=== PATIENT | female | born 1975 | race Caucasian/White ===

== ENCOUNTER 2020-03-25 09:22 | Outpatient (REF) | payer OTHER, SELFPAY ==
[2020-03-25 10:37] LABS: MANUAL DIFF FLAG NO
[2020-03-25 10:49] LABS: Basophils Absolute Auto 0.1 X10*3/uL (0.0-0.2); Basophils Percent Auto 0.9 % (0-2); Eosinophils Percent Auto 0.6 % (0-4); Hematocrit 36.2 % (37-47); Hemoglobin 12.4 g/dl (12.0-16.0); Imm Gran Abs Auto 0.01 X10*3/uL (0.00-0.03); Imm Gran Pct Auto 0.2 % (0.0-0.4); Lymphocytes Absolute Auto 1.4 X10*3/uL (1.2-4.9); Lymphocytes Percent Auto 25.6 % (20-40); Mean Corpuscular HGB Conc 34.3 g/dl (31.0-35.0); Mean Corpuscular Hemoglobin 31.5 pg (27.0-33.0); Mean Corpuscular Volume 91.9 fL (80-98); Mean Platelet Volume 9.7 fL (9.4-12.3); Monocytes Absolute Auto 0.3 X10*3/uL (0.1-1.2); Monocytes Percent Auto 5.9 % (2-11); Neutrophils Absolute Auto 3.6 X10*3/uL (2.0-8.3); Neutrophils Percent Auto 66.8 % (45-73); Platelet Count 294 X10*3/uL (160-400); Red Blood Count 3.94 X10*6/uL (4.20-5.50); Red Cell Distribution Width 11.7 % (11.0-16.0); White Blood Count 5.4 X10*3/uL (4.8-10.8)
[2020-03-25 10:51] LABS: Estimated Average Glucose 91 mg/dL; Hemoglobin A1c % 4.8 %
[2020-03-25 11:05] LABS: Glucose Urine UA NEG (NEG); Leukocyte Esterase Urine TRACE (NEG); Nitrite Urine POS (NEG); Specific Gravity - Urine 1.015 (1.005-1.025); Urine Blood NEG (NEG); Urine Ketones NEG (NEG); Urine Protein NEG (NEG-TRACE)
[2020-03-25 11:08] LABS: Appearance Urine CLOUDY; Color Urine YELLOW
[2020-03-25 11:13] LABS: Bacteria Urine 2+ /LPF; Mucus Urine 3+ /LPF; RBC Urine 0 /HPF (0); Squamous Epithelial Cell Urine 3+ /LPF
[2020-03-25 11:26] LABS: Alanine Aminotransferase 24 U/L (0-31); Albumin Level 4.2 g/dL (3.5-5.0); Alkaline Phosphatase 94 U/L (39-117); Anion Gap 11 (12-20); Aspartate Amino Transferase 17 U/L (5-31); Bilirubin Total 1.5 mg/dL (0.0-1.0); Blood Urea Nitrogen 12 mg/dL (9-16); C Reactive Protein 0.07 mg/dL (< or = 0.50); Calcium 8.9 mg/dL (8.4-10.2); Carbon Dioxide 29 mmol/L (22-29); Chloride 103 mmol/L (96-108); Cholesterol 137 mg/dL; Estimated Glomerular Filt Rate > 60; Glucose Random 94 mg/dL (60-115); HDL Cholesterol 61 mg/dL; Iron 87 mcg/dL (30-160); LDL Cholesterol Calculated 64 mg/dl; Percent Iron Saturation 27 % (15-50); Potassium 4.6 mmol/l (3.3-5.1); Sodium 138 mmol/L (135-145); Total Iron Binding Capacity 320 mcg/dL (228-428); Triglycerides 64 mg/dL; Unsaturated Iron Binding 233 ug/dL
[2020-03-25 11:34] LABS: Ferritin 65 ng/mL (10-250); TSH reflex Free T4 0.75 mIU/mL (0.32-4.0); Vitamin D 25-OH Total 27.9 ng/mL (>30)
[2020-03-25 11:49] LABS: Folate 8.7 ng/mL (> or = 4.0); Vitamin B12 165 pg/mL (200-900)
[2020-03-27 12:36] LABS: Insulin Level Total 2.9 uIU/mL; PTHI 69 pg/mL (14-64)
[2020-03-28 16:16] LABS: Zinc 66 mcg/dL (60-130)
[2020-03-29 12:56] LABS: Vitamin B1 8 nmol/L (8-30)
[2020-03-31 15:47] LABS: Vitamin A 34 mcg/dL (38-98)
== END 2020-03-25 09:23 | disposition home or self-care (01) ==
LOC: HO.LAB 09:22
PROVIDERS: Physician Assistant; PCP Internal Medicine; Visit Provider Internal Medicine
DX: Z98.84 Bariatric surgery status (principal); Z00.00 Encounter for general adult medical examination without abnormal findings; F41.0 Panic disorder [episodic paroxysmal anxiety]; F51.01 Primary insomnia; F34.1 Dysthymic disorder; G44.209 Tension-type headache, unspecified, not intractable
CPT/HCPCS: 36415; 80053; 80061; 81001; 81003; 82306; 82607; 82728; 82746; 83036; 83525; 83540; 83970; 84425; 84443; 84590; 84630; 85025; 86140

== ENCOUNTER → 2020-05-20 08:44 | Outpatient (BNVA) | payer OTHER, SELFPAY | PROVIDERS: PCP Internal Medicine; Visit Provider Dietitian, Registered | DX: Z76.89 Persons encountering health services in other specified circumstances (principal) ==

== ENCOUNTER 2020-06-23 12:24 | Outpatient (REF) | payer OTHER, SELFPAY ==
[2020-06-23 13:13] LABS: Glucose Urine UA NEG (NEG); Leukocyte Esterase Urine NEG (NEG); Nitrite Urine NEG (NEG); PH 6.5 (5.0-8.0); Urine Blood NEG (NEG); Urine Ketones NEG (NEG); Urine Protein NEG (NEG-TRACE)
[2020-06-23 13:15] LABS: Appearance Urine CLEAR; Color Urine YELLOW
== END 2020-06-23 12:25 | disposition home or self-care (01) ==
LOC: HO.LAB 12:24
PROVIDERS: PCP Internal Medicine; Visit Provider Internal Medicine
DX: N30.00 Acute cystitis without hematuria (principal)
CPT/HCPCS: 81003; 87086; 87147

== ENCOUNTER → 2020-06-30 08:11 | Outpatient (BNVA) | payer OTHER, SELFPAY | PROVIDERS: PCP Internal Medicine; Visit Provider Physician Assistant | DX: Z76.89 Persons encountering health services in other specified circumstances (principal) ==

== ENCOUNTER 2021-04-07 10:32 | Outpatient (REF) | payer OTHER, SELFPAY ==
[2021-04-07 10:34] LABS: MANUAL DIFF FLAG NO
[2021-04-07 11:22] LABS: Basophils Percent Auto 0.7 % (0-2); Eosinophils Absolute Auto 0.1 X10*3/uL (0.0-0.4); Eosinophils Percent Auto 1.2 % (0-4); Hematocrit 37.3 % (37-47); Hemoglobin 12.5 g/dl (12.0-16.0); Imm Gran Abs Auto 0.01 X10*3/uL (0.00-0.03); Imm Gran Pct Auto 0.2 % (0.0-0.4); Lymphocytes Absolute Auto 2.2 X10*3/uL (1.2-4.9); Mean Corpuscular HGB Conc 33.5 g/dl (31.0-35.0); Mean Corpuscular Hemoglobin 31.2 pg (27.0-33.0); Mean Platelet Volume 9.5 fL (9.4-12.3); Monocytes Absolute Auto 0.5 X10*3/uL (0.1-1.2); Monocytes Percent Auto 8.3 % (2-11); Neutrophils Percent Auto 51.6 % (45-73); Platelet Count 294 X10*3/uL (160-400); Red Blood Count 4.01 X10*6/uL (4.20-5.50); White Blood Count 5.9 X10*3/uL (4.8-10.8)
[2021-04-07 11:44] LABS: Alanine Aminotransferase 17 U/L (0-31); Albumin Level 4.2 g/dL (3.5-5.0); Alkaline Phosphatase 73 U/L (39-117); Anion Gap 13 (12-20); Aspartate Amino Transferase 17 U/L (5-31); Bilirubin Total 1.1 mg/dL (0.0-1.0); Blood Urea Nitrogen 14 mg/dL (9-16); Calcium 9.3 mg/dL (8.4-10.2); Carbon Dioxide 26 mmol/L (22-29); Chloride 106 mmol/L (96-108); Cholesterol 136 mg/dL; Estimated Glomerular Filt Rate > 60; Glucose Fasting 97 mg/dL (60-99); HDL Cholesterol 60 mg/dL; LDL Cholesterol Calculated 61 mg/dl; Potassium 4.5 mmol/L (3.3-5.1); Sodium 140 mmol/L (135-145); Triglycerides 77 mg/dL
[2021-04-07 11:48] LABS: Reflex LDLD? No
[2021-04-07 11:54] LABS: Appearance Urine HAZY; Color Urine YELLOW; Glucose Urine UA NEG (NEG); Leukocyte Esterase Urine 1+ (NEG); Nitrite Urine NEG (NEG); Specific Gravity - Urine 1.025 (1.005-1.025); Urine Blood NEG (NEG); Urine Ketones NEG (NEG); Urine Protein NEG (NEG-TRACE)
[2021-04-07 12:32] LABS: Bacteria Urine 1+ /LPF; Mucus Urine 1+ /LPF; RBC Urine 0-2 /HPF (0); Squamous Epithelial Cell Urine 1+ /LPF
== END 2021-04-07 10:33 | disposition home or self-care (01) ==
LOC: HO.LNP 10:32
PROVIDERS: Visit Provider Internal Medicine
DX: Z00.00 Encounter for general adult medical examination without abnormal findings (principal)
CPT/HCPCS: 80053; 80061; 81001; 81003; 85025

== ENCOUNTER 2022-05-25 10:55 | Outpatient (REF) | payer OTHER, SELFPAY ==
[2022-05-25 11:00] LABS: MANUAL DIFF FLAG NO
[2022-05-25 11:07] LABS: Basophils Percent Auto 0.7 % (0-2); Eosinophils Absolute Auto 0.1 X10*3/uL (0.0-0.4); Eosinophils Percent Auto 1.3 % (0-4); Hematocrit 35.1 % (37.0-47.0); Hemoglobin 11.8 g/dl (12.0-16.0); Imm Gran Abs Auto 0.01 X10*3/uL (0.00-0.03); Imm Gran Pct Auto 0.2 % (0.0-0.4); Lymphocytes Absolute Auto 1.8 X10*3/uL (1.2-4.9); Lymphocytes Percent Auto 32.8 % (20-40); Mean Corpuscular HGB Conc 33.6 g/dl (31.0-35.0); Mean Corpuscular Hemoglobin 30.6 pg (27.0-33.0); Mean Corpuscular Volume 91.2 fL (80.0-98.0); Mean Platelet Volume 9.4 fL (9.4-12.3); Monocytes Absolute Auto 0.4 X10*3/uL (0.1-1.2); Monocytes Percent Auto 7.8 % (2-11); Neutrophils Absolute Auto 3.1 x10*3/uL (2.0-8.3); Neutrophils Percent Auto 57.2 % (45-73); Platelet Count 304 X10*3/uL (160-400); Red Blood Count 3.85 X10*6/uL (4.20-5.50); Red Cell Distribution Width 11.9 % (11.0-16.0); White Blood Count 5.4 X10*3/uL (4.8-10.8)
[2022-05-25 11:09] LABS: Appearance Urine Cloudy; Color Urine Yellow; Glucose Urine UA Negative (Negative); Leukocyte Esterase Urine Small (1+) (Negative); Nitrite Urine Negative (Negative); PH 5.5 (5.0-9.0); UMIC TRIGGER UA YES; Urine Blood Negative (Negative); Urine Ketones Trace mg/dL (Negative); Urine Protein Trace mg/dL (Neg-Trace)
[2022-05-25 11:22] LABS: Bacteria Urine 4+ (None Seen); Hyaline Casts Urine 0-2 /LPF (0-2); WBC Urine 0-5 /HPF (0-5)
[2022-05-25 12:25] LABS: Alanine Aminotransferase 15 U/L (0-31); Alkaline Phosphatase 71 U/L (39-117); Anion Gap 10 (12-20); Aspartate Amino Transferase 16 U/L (5-31); Bilirubin Total 1.4 mg/dL (0.0-1.0); Blood Urea Nitrogen 11 mg/dL (9-16); Calcium 8.9 mg/dL (8.4-10.2); Carbon Dioxide 27 mmol/L (22-29); Chloride 105 mmol/L (96-108); Cholesterol 139 mg/dL; Estimated Glomerular Filt Rate > 60; Glucose Fasting 92 mg/dL (60-99); HDL Cholesterol 67 mg/dL; LDL Cholesterol Calculated 56 mg/dl; Potassium 3.9 mmol/L (3.3-5.1); Sodium 138 mmol/L (135-145); Total Protein 6.6 g/dL (6.5-8.0); Triglycerides 84 mg/dL
== END 2022-05-25 10:56 | disposition home or self-care (01) ==
LOC: HO.LNP 10:55
PROVIDERS: Visit Provider Internal Medicine
DX: Z00.00 Encounter for general adult medical examination without abnormal findings (principal)
CPT/HCPCS: 80053; 80061; 81001; 85025

== ENCOUNTER 2022-05-31 16:04 | Outpatient (REF) | payer OTHER, SELFPAY ==
[2022-05-31 16:12] LABS: Appearance Urine Cloudy; Color Urine Dark Yellow; Glucose Urine UA Negative (Negative); Leukocyte Esterase Urine Small (1+) (Negative); Nitrite Urine Negative (Negative); PH 5.5 (5.0-9.0); Specific Gravity - Urine >= 1.030 (1.005-1.025); UMIC TRIGGER UA YES; Urine Blood Negative (Negative); Urine Ketones 15 mg/dL (Negative); Urine Protein 30 (1+) mg/dL (Neg-Trace)
[2022-05-31 16:32] LABS: Bacteria Urine 4+ (None Seen); Hyaline Casts Urine 0-2 /LPF (0-2); WBC Urine 0-5 /HPF (0-5)
== END 2022-05-31 16:05 | disposition home or self-care (01) ==
LOC: HO.LNP 16:04
PROVIDERS: Visit Provider Internal Medicine
DX: R31.9 Hematuria, unspecified (principal)
CPT/HCPCS: 81001; 87086

== ENCOUNTER 2022-06-03 11:13 | Outpatient (REF) | payer OTHER, SELFPAY | END 2022-06-03 11:14 | disposition home or self-care (01) | LOC: HO.LNP 11:13 | PROVIDERS: Visit Provider Internal Medicine | DX: R31.9 Hematuria, unspecified (principal) | CPT/HCPCS: 87086; 87088; 87186 ==

== ENCOUNTER 2022-06-07 08:02 | Outpatient (REF) | payer OTHER, SELFPAY ==
[2022-06-07 08:29] LABS: MANUAL DIFF FLAG NO
[2022-06-07 09:09] LABS: Basophils Percent Auto 0.8 % (0-2); Eosinophils Absolute Auto 0.1 X10*3/uL (0.0-0.4); Eosinophils Percent Auto 1.2 % (0-4); Hematocrit 35.3 % (37.0-47.0); Hemoglobin 11.7 g/dl (12.0-16.0); Imm Gran Abs Auto 0.01 X10*3/uL (0.00-0.03); Imm Gran Pct Auto 0.2 % (0.0-0.4); Lymphocytes Absolute Auto 1.6 X10*3/uL (1.2-4.9); Lymphocytes Percent Auto 31.2 % (20-40); Mean Corpuscular HGB Conc 33.1 g/dl (31.0-35.0); Mean Corpuscular Hemoglobin 30.4 pg (27.0-33.0); Mean Corpuscular Volume 91.7 fL (80.0-98.0); Mean Platelet Volume 9.2 fL (9.4-12.3); Monocytes Absolute Auto 0.4 X10*3/uL (0.1-1.2); Monocytes Percent Auto 7.4 % (2-11); Neutrophils Percent Auto 59.2 % (45-73); Platelet Count 296 X10*3/uL (160-400); Red Blood Count 3.85 X10*6/uL (4.20-5.50); Red Cell Distribution Width 11.9 % (11.0-16.0); White Blood Count 5.1 X10*3/uL (4.8-10.8)
[2022-06-07 09:14] LABS: Estimated Average Glucose 97 mg/dL
[2022-06-07 10:08] LABS: Alanine Aminotransferase 17 U/L (0-31); Albumin Level 4.2 g/dL (3.5-5.0); Alkaline Phosphatase 85 U/L (39-117); Anion Gap 13 (12-20); Aspartate Amino Transferase 17 U/L (5-31); Bilirubin Total 1.2 mg/dL (0.0-1.0); Blood Urea Nitrogen 14 mg/dL (9-16); C Reactive Protein 0.11 mg/dL (< or = 0.50); Calcium 9.3 mg/dL (8.4-10.2); Carbon Dioxide 28 mmol/L (22-29); Chloride 103 mmol/L (96-108); Cholesterol 157 mg/dL; Estimated Glomerular Filt Rate > 60; Ferritin 28 ng/mL (10-250); Glucose Random 93 mg/dL (60-115); HDL Cholesterol 72 mg/dL; Insulin 4 uU/mL (2-29); Iron 90 mcg/dL (30-160); LDL Cholesterol Calculated 70 mg/dl; Percent Iron Saturation 28 % (15-50); Potassium 4.5 mmol/L (3.3-5.1); Sodium 139 mmol/L (135-145); Total Iron Binding Capacity 321 mcg/dL (228-428); Total Protein 6.9 g/dL (6.5-8.0); Triglycerides 76 mg/dL; Unsaturated Iron Binding 231 ug/dL; Vitamin D 25-OH Total 24.8 ng/mL (>30)
[2022-06-07 10:21] LABS: Folate 8.2 ng/mL (> or = 4.0); Vitamin B12 250 pg/mL (200-900)
[2022-06-10 17:47] LABS: Calcium (PTHI) 9.1 mg/dL (8.6-10.2); PTHI 75 pg/mL (16-77)
[2022-06-11 22:33] LABS: Vitamin A 38 mcg/dL (38-98)
[2022-06-11 23:38] LABS: Zinc 62 mcg/dL (60-130)
[2022-06-12 14:48] LABS: Vitamin B1 9 nmol/L (8-30)
== END 2022-06-07 08:03 | disposition home or self-care (01) ==
LOC: HO.LAB 08:02
PROVIDERS: PCP Internal Medicine; Visit Provider Physician Assistant Surgical
DX: Z98.84 Bariatric surgery status (principal)
CPT/HCPCS: 36415; 80053; 80061; 82306; 82607; 82728; 82746; 83036; 83525; 83540; 83970; 84425; 84443; 84590; 84630; 85025; 86140

== ENCOUNTER 2022-06-11 12:14 | Outpatient (REF) | payer OTHER, SELFPAY ==
[2022-06-11 12:34] LABS: Appearance Urine Cloudy; Color Urine Yellow; Glucose Urine UA Negative (Negative); Leukocyte Esterase Urine Negative (Negative); Nitrite Urine Negative (Negative); PH 5.5 (5.0-9.0); Specific Gravity - Urine 1.025 (1.005-1.025); Urine Blood Negative (Negative); Urine Ketones Negative (Negative); Urine Protein Negative (Neg-Trace)
[2022-06-11 12:48] LABS: Bacteria Urine None Seen (None Seen); Hyaline Casts Urine 0-2 /LPF (0-2); RBC Urine 0-2 /HPF (0-2); Squamous Epithelial Cell Urine 0-2 /HPF (0-2); WBC Urine 0-5 /HPF (0-5)
[2022-06-11 12:50] LABS: Calcium Oxalate Crystals Urine Present
== END 2022-06-11 12:15 | disposition home or self-care (01) ==
LOC: HO.LNP 12:14
PROVIDERS: Visit Provider Internal Medicine
DX: R31.9 Hematuria, unspecified (principal); N39.0 Urinary tract infection, site not specified
CPT/HCPCS: 81001; 87086

== ENCOUNTER → 2022-06-15 14:27 | Outpatient (BNVA) | payer OTHER, SELFPAY | PROVIDERS: PCP Internal Medicine; Visit Provider Physician Assistant Surgical | DX: L98.7 Excessive and redundant skin and subcutaneous tissue (principal) ==

== ENCOUNTER → 2022-07-20 09:02 | Outpatient (BNVA) | payer OTHER, SELFPAY | PROVIDERS: PCP Internal Medicine; Referring Provider Internal Medicine; Visit Provider Physician Assistant Surgical | DX: E66.9 Obesity, unspecified (principal) ==

== ENCOUNTER → 2022-08-18 08:56 | Outpatient (BNVA) | payer OTHER, SELFPAY | PROVIDERS: PCP Internal Medicine; Visit Provider Physician Assistant Surgical | DX: Z13.89 Encounter for screening for other disorder (principal) ==

== ENCOUNTER 2022-08-20 11:51 | Outpatient (REF) | payer OTHER, SELFPAY ==
[2022-08-20 12:37] LABS: Appearance Urine Turbid; Color Urine Dark Yellow; Glucose Urine UA Negative (Negative); Leukocyte Esterase Urine Large (3+) (Negative); Nitrite Urine Positive (Negative); UMIC TRIGGER UACC YES; Urine Blood Small (1+) (Negative); Urine Ketones 15 mg/dL (Negative); Urine Protein 30 (1+) mg/dL (Neg-Trace)
[2022-08-20 13:07] LABS: Bacteria Urine 4+ (None Seen); Hyaline Casts Urine 0-2 /LPF (0-2); RBC Urine 0-2 /HPF (0-2); UACC Culture Trigger YES; WBC Urine >50 /HPF (0-5)
== END 2022-08-20 11:52 | disposition home or self-care (01) ==
LOC: HO.LNP 11:51
PROVIDERS: Visit Provider Internal Medicine
DX: N39.0 Urinary tract infection, site not specified (principal)
CPT/HCPCS: 81001; 81003; 87086

== ENCOUNTER 2022-08-24 11:01 | Outpatient (REF) | payer OTHER, SELFPAY ==
[2022-08-24 11:15] LABS: Appearance Urine Clear; Color Urine Yellow; Glucose Urine UA Negative (Negative); Leukocyte Esterase Urine Negative (Negative); Nitrite Urine Negative (Negative); Urine Blood Negative (Negative); Urine Ketones Negative (Negative); Urine Protein Negative (Neg-Trace)
[2022-08-24 11:20] LABS: Bacteria Urine None Seen (None Seen); Hyaline Casts Urine 0-2 /LPF (0-2); RBC Urine 0-2 /HPF (0-2); WBC Urine 0-5 /HPF (0-5)
== END 2022-08-24 11:02 | disposition home or self-care (01) ==
LOC: HO.LNP 11:01
PROVIDERS: Visit Provider Internal Medicine
DX: R33.9 Retention of urine, unspecified (principal)
CPT/HCPCS: 81001

== ENCOUNTER → 2022-09-09 08:01 | Outpatient (BNVA) | payer OTHER, SELFPAY | PROVIDERS: PCP Internal Medicine; Referring Provider Internal Medicine; Visit Provider Surgery | DX: Z13.89 Encounter for screening for other disorder (principal) ==

== ENCOUNTER → 2022-09-13 08:14 | Outpatient (BNVA) | payer OTHER, SELFPAY | PROVIDERS: PCP Internal Medicine; Visit Provider Surgery | DX: Z13.89 Encounter for screening for other disorder (principal) ==

== ENCOUNTER 2022-09-22 07:50 | Outpatient (REF) | payer OTHER, SELFPAY ==
[2022-09-22 08:06] LABS: MANUAL DIFF FLAG NO
[2022-09-22 08:32] LABS: Basophils Absolute Auto 0.1 X10*3/uL (0.0-0.2); Basophils Percent Auto 0.8 % (0-2); Eosinophils Absolute Auto 0.1 X10*3/uL (0.0-0.4); Hematocrit 36.7 % (37.0-47.0); Hemoglobin 12.4 g/dl (12.0-16.0); Imm Gran Abs Auto 0.02 X10*3/uL (0.00-0.03); Imm Gran Pct Auto 0.3 % (0.0-0.4); Lymphocytes Absolute Auto 1.7 X10*3/uL (1.2-4.9); Lymphocytes Percent Auto 28.4 % (20-40); Mean Corpuscular HGB Conc 33.8 g/dl (31.0-35.0); Mean Corpuscular Hemoglobin 30.6 pg (27.0-33.0); Mean Corpuscular Volume 90.6 fL (80.0-98.0); Mean Platelet Volume 8.9 fL (9.4-12.3); Monocytes Absolute Auto 0.4 X10*3/uL (0.1-1.2); Monocytes Percent Auto 6.8 % (2-11); Neutrophils Absolute Auto 3.7 x10*3/uL (2.0-8.3); Neutrophils Percent Auto 62.7 % (45-73); Platelet Count 295 X10*3/uL (160-400); Red Blood Count 4.05 X10*6/uL (4.20-5.50); Red Cell Distribution Width 12.4 % (11.0-16.0); White Blood Count 5.9 X10*3/uL (4.8-10.8)
[2022-09-22 08:38] LABS: INTERNATIONAL NORM RATIO 0.9 (0.9-1.1); Prothrombin Time 9.9 SEC (10.0-13.1)
[2022-09-22 08:41] LABS: Partial Thromboplastin Time 29.8 SEC (26.0-36.4)
[2022-09-22 09:19] LABS: Alanine Aminotransferase 16 U/L (0-31); Alkaline Phosphatase 79 U/L (39-117); Anion Gap 14 (12-20); Aspartate Amino Transferase 20 U/L (5-31); Bilirubin Total 0.9 mg/dL (0.0-1.0); Blood Urea Nitrogen 12 mg/dL (9-16); Calcium 9.1 mg/dL (8.4-10.2); Carbon Dioxide 24 mmol/L (22-29); Chloride 104 mmol/L (96-108); Estimated Glomerular Filt Rate > 60; Glucose Random 97 mg/dL (60-115); Potassium 4.3 mmol/L (3.3-5.1); Sodium 138 mmol/L (135-145); Total Protein 6.8 g/dL (6.5-8.0)
== END 2022-09-22 07:51 | disposition home or self-care (01) ==
LOC: HO.LAB 07:50
PROVIDERS: PCP Internal Medicine; Visit Provider Surgery
DX: K90.9 Intestinal malabsorption, unspecified (principal); Z98.84 Bariatric surgery status
CPT/HCPCS: 36415; 80053; 85025; 85610; 85730

== ENCOUNTER 2022-09-30 08:37 | Day surgery (SDC) | payer OTHER, MEDICAID, SELFPAY ==
[2022-09-22 11:05] VITALS: BMI 24.3
--- NOTE | 2022-09-24 23:01 | P.HPSUR_ITS ---
Pre-Procedural Eval Section A Date of Service: 09/24/22 The patient is an INPATIENT: No The History & Physical has been completed within 30 days and I have reviewed it.: Yes Section B Chief Complaint: Excessive and redundant skin and subcutaneous tiss Relevant Family History (Specify if Yes): No Relevant Social History: None Present Medications: None Medical History: No relevant PMH History of Previous Operations: Relevant previous surgery/procedure and date(s) (Laparoscopic sleeve gastrectomy) Allergies: Allergies Allergy/AdvReac Type Severity Reaction Status Date / Time Seasonal Allergies Allergy Mild per skin Verified 09/22/22 10:58 testing for allergies-mild symptoms reported Review of Systems Sugical H&P ROS: Negative: Constitution, Cardiovascular, Respiratory, Neurol ogical, Psychiatric, Hem-Onc, Allergic/Immunologic, Gastrointestinal, Genitourinary, Musculoskeletal, Integumentary, Endocrine and Eyes/Ears/Nose/Throat Exam Surgical H&P Exam: Normal: HEENT, Normal: Heart, Normal: Lungs, Normal: Extremities, Normal: Abdomen, Normal: Skin and Normal: Neurological Plan Diagnosis/Plan: Unchanged I have reviewed the history and physical and performed a pertinent physical examination on my patient. No changes have occurred unless specified. Time Spent With Patient Time: Total time managing care of this patient today ____ minutes.
--- NOTE | 2022-09-29 08:11 | P.CONAN_ITS ---
HPI - Anesthesia Eval Consult details Narrative: 47yo F for Panniculectomy s/p gastric bypass 2017 [facility] Active Problems Active Problems: All Active Problems (Updated 09/22/22 @ 11:05 by Norma Becerril RN) S/P gastric bypass (Acute) Excess skin (Acute) Intestinal malabsorption (Acute) Panniculitis (Acute) Past Medical History Medical History History of COVID-19 Seasonal allergies Family History Family History Father Emphysema lung COPD (chronic obstructive pulmonary disease) Mother DM (diabetes mellitus) HTN (hypertension) Glaucoma Brother No problems noted. Brother No problems noted. Brother No problems noted. Son No problems noted. Son No problems noted. Surgical History Surgical History H/O removal of cyst History of esophagogastroduodenoscopy (EGD) History of Denise-en-Y gastric bypass Hx of section Hx of colonoscopy S/P NILA-BSO (total abdominal hysterectomy and bilateral salpingo-oophorectomy) Social History Social History Household Members Other:: 2 adult children-ages 19 & 21 Are you a primary medicare biller to a significant other at home: No Do you presently have visiting nurse or other home services: No Alcohol intake: current Alcohol intake frequency: a few times a week Patient Tobacco Use Status: Never used Tobacco Meds Allergies Allergy/AdvReac Type Severity Reaction Status Date / Time Seasonal Allergies Allergy Mild per skin Verified 09/22/22 10:58 testing for allergies-mild symptoms reported Home Medications Medication Instructions Recorded Confirmed Last Taken Type estradiol 0.025 mg/24 hr 1 patch transdermal 2XW 06/15/22 09/22/22 Unknown History semiweekly transdermal patch (Lyllana) trazodone 50 mg tablet 50 mg PO BEDTIME 06/15/22 09/22/22 Unknown History Exam Exam Date and Time: September 29, 2022 0811 Height,Weight and Vital Signs: Height 5 ft 4 in Weight 64.41 kg Pertinent Lab Results Pertinent Lab Results: Laboratory Tests 09/22/22 08:00 Blood Type A Positive Antibody Screen NEGATIVE Laboratory Tests 09/22/22 09/22/22 08:04 08:04 WBC 5.9 Hgb 12.4 Hct 36.7 L Plt Count 295 Sodium 138 Potassium 4.3 Chloride 104 Carbon Dioxide 24 BUN 12 Creatinine 0.69 Assessment and Plan Assessment Anesthesia Assessment: Chart Reviewed
[2022-09-29 13:47] LABS: COVID-19 Test Negative (Negative); IDNOW Serial# BCCEAD1C
[2022-09-30] VITALS (13 sets, daily range): BP systolic 102–119; BP diastolic 54–80; PULSE 71–103; RESP 12–18; TEMP 36.3–36.9; O2SAT 96–100
--- NOTE | 2022-09-30 10:06 | HO.ANESPROP2 ---
[facility] Active Problems Active Problems: All Active Problems (Updated 09/22/22 @ 11:05 by Norma Becerril RN) S/P gastric bypass (Acute) Excess skin (Acute) Intestinal malabsorption (Acute) Panniculitis (Acute) Past Medical History Medical History History of COVID-19 Seasonal allergies Family History Family History Father Emphysema lung COPD (chronic obstructive pulmonary disease) Mother DM (diabetes mellitus) HTN (hypertension) Glaucoma Brother No problems noted. Brother No problems noted. Brother No problems noted. Son No problems noted. Son No problems noted. Surgical History Surgical History H/O removal of cyst History of esophagogastroduodenoscopy (EGD) History of Denise-en-Y gastric bypass Hx of section Hx of colonoscopy S/P NILA-BSO (total abdominal hysterectomy and bilateral salpingo-oophorectomy) History of Problems with Anesthesia: No Social History Social History Household Members Other:: 2 adult children-ages 19 & 21 Are you a primary restorative care technician to a significant other at home: No Do you presently have visiting nurse or other home services: No Alcohol intake: current Alcohol intake frequency: a few times a week Patient Tobacco Use Status: Never used Tobacco Use of substances other than those prescribed or required for medical reasons: No Are you DNR?: No Advance Directives: No Advance Directives Information Provided: Yes (brochure mailed) Advance Directives on File: No Recently lost weight without trying: No Eating poorly because of decreased appetite: No Nutrition Risks: No Nutritional Risk Patient : No FDLMP: N/A-had hysterectomy Poor oral hygiene: No Meds Allergies Allergy/AdvReac Type Severity Reaction Status Date / Time Seasonal Allergies Allergy Mild per skin Verified 09/22/22 10:58 testing for allergies-mild symptoms reported Active Medications: Current Medications Lactated Ringer's (Lr) 1,000 mls @ 100 mls/hr IVCONT .Q10H SHAHAB Lactated Ringer's (Lr) 1,000 mls @ 80 mls/hr IVCONT .[id number] SHAHAB Home Medications Medication Instructions Recorded Confirmed Last Taken Type estradiol 0.025 mg/24 hr 1 patch transdermal 2XW 06/15/22 09/22/22 Unknown History semiweekly transdermal patch (Lyllana) trazodone 50 mg tablet 50 mg PO BEDTIME 06/15/22 09/22/22 Unknown History Exam Exam Date and Time: September 30, 2022 1006 Height,Weight and Vital Signs: Height 5 ft 4 in Weight 64.41 kg Last Vital Signs Temp 97.6 F 09/30/22 08:56 Pulse 88 09/30/22 08:56 Resp 18 09/30/22 08:56 BP 105/73 09/30/22 08:56 Pulse Ox 97 09/30/22 08:56 O2 Del Method Room Air 09/30/22 08:56 Pertinent Lab Results Pertinent Lab Results: Laboratory Tests 09/22/22 09/29/22 08:00 13:23 COVID-19 (QUINCY) Negative COVID-19 Clin Com See Note Blood Type A Positive Antibody Screen NEGATIVE Airway Mallampati Class: II TM Dist: >3cm Neck ROM: Full Loose/Missing/Broken Teeth: No Heart: RRR Lungs: CTA Assessment and Plan Assessment Anesthesia Assessment: Anesthesia Plan Discussed and Chart Reviewed Final Anesthetic Review History of Problems with Anesthesia: No NPO: Yes ASA Class: I and II Final Preanesthetic Review: Meds/Allgs Chart Reviewed, Consent Obtained/Reviewed and Anes Risks/Benef Reviewed Patient Risk: Low Procedure Risk: Low Anesthetic Plan Anesthetic Plan: GA Disposition: Standard PACU
--- NOTE | 2022-09-30 10:21 | PC.NURSE ---
notified [facility] aware of order does not state possible abdominoplasty, ventral hernia repair with/without mesh. ok'd by Tia Salter.
--- NOTE | 2022-09-30 10:44 | PM.OP ---
Brief Operative Note Date of Service: 09/30/22 Pre-op diagnosis: Excess skin and panniculitis Post-op diagnosis: same (active rash present in today's exam) Procedure: PROCEDURE: Panniculectomy with umbilical transposition and bilateral subcutaneous fat flaps INDICATION: This a 47 year old female who underwent laparoscopic sleeve gastrectomy on 12/20/2017. She had an excellent result achieving a BMI of 23.7 kg/m2 with a total weight loss of 81.4lbs, or 36.44% of her TBWL. As a result, she has developed panniculitis which has not resolved despite continuous use of clotrimazole ointment as well as skin irritation. On exam she has extreme skin laxity due to massive weight loss, with the abdominal pannus completely hanging 4cm below the pubis. Panniculectomy was recommended. We discussed the two options for the panniculectomy of using a combined vertical and horizontal incisions or just a horizontal (bikini) incision. It was my recommendation to do only horizontal incision based on her body habitus and skin laxity. The patient agreed with this. Risks and complications were discussed with the patient including bleeding, infection, umbilical loss, flap necrosis, asymmetry, dehiscence, seroma, VTE. The patient understood the risks and was in agreement to proceed with surgery. PROCEDURE: The incisions were appropriately marked at the preop area with the patient standing and laying down. After induction of general anesthesia a Elias catheter and pneumatic compression devices were placed. The patient was prepped and draped in the usual sterile manner and the incisions were marked again and confirmed. The skin was infiltrated with lidocaine and epinephrine. The #10 blade scalpel was used for the large incisions and the #15 blade scalpel for the umbilicus. Cautery was used to divide the subcutaneous tissues until the fascia was identified. Then I used the Thunderbeat (Olympus) to separate the pannus from the fascia. The inferior incision was made initially and I mobilized the flap for a several centimeters cephalad to the umbilicus. The umbilicus was incised circumferentially and detached from the surrounding tissues all the way to the fascia while its stalk was preserved. With the patient in reflex position I confirmed that the skin flaps were appropriate and would allow for the tissues to come together with reasonable tension. At that point a horizontal incision was made 4 cm above the umbilicus. #10 blade was used for the skin, cautery for the dermis and the Thunderbeat for the remaining tissues. A subcutaneous fat flap was raised from the upper skin flap in order to fill the space under the skin and support the closure of the two flaps. In addition the inferior flap was mobilized caudally for a few centimeters to create a space for the subcutaneous fat flap as well as relieve tension from the closure. A circumferential incision was made at the area where the umbilicus would be re-implanted. The umbilicus was appropriately oriented and was delivered through the defect and was secured in place with a [place]. No bleeding was noted anywhere. One NANCY drain was placed from the left corner of the horizontal incision across the wound and was secured in place with a silk suture. A total of 14ml of Zynrelef was applied on top of the fascia and under the subcutaneous fat flaps. The subcutaneous fat flap was secured under the inferior flap with several interrupted 3.0 Monocryl sutures. The two flaps were brought together and were attached at the midline of the horizontal incision with a #3.0 Monocryl suture. At that point the umbilicus was properly oriented and was re-approximated to the skin with 8 interrupted 3.0 Monocryl sutures. In a similar fashion the skin flaps were re-approximated with multiple 3.0 Monocryl sutures. The skin was closed in all incisions and umbilicus with 4.0 Monocryl sutures. Steri-strips, xeroform gauzes and gauzes were used to cover the incisions. An abdominal binder was also placed. The was awaken and was transferred to the recover room in a stable condition. I was present and performed the entire procedure. Ms. Reyez was the respiratory therapy assistant. Zac Hubbard MD, PhD, FACS Surgeon: Jimmy Hubbard MD Surgeon: Jimmy Hubbard MD Anesthesia: GETA, local and other (14ml Zynrelef) Was an Care Companion used for this Procedure?: No Care Companion: Cristian Cooper Estimated blood loss (mL): 10 IV fluids (mL): 2,000 Urine output (mL): 100 Pathology: other (Abdominal pannus) Condition: stable Disposition: PACU
--- NOTE | 2022-09-30 15:06 | W.MHC.F2F ---
Service Date Service Date: 09/30/22 Encounter Date of encounter: 09/30/22 Reasons for Services Signs and symptoms assessed: s/p panniculectomy Reason for retirement: wound care and postoperative assessment and/or care Homebound: Leaving the home is medically contraindicated at this time without the asist of a device and/or another person due th the listed conditions above and below. Reason homebound: unable to drive Certification: Based on the above findings, I certify that this patient is confined to the home and needs intermittent retirement care, physical therapy and/or speech therapy, or continues to need occupational therapy. The patient is under my care, and I have initiated the establishment of the plan of care. The patient will be followed by a physician who will periodically review the plan of care. Time Spent With Patient Time: Total time managing care of this patient today ____ minutes.
[2022-09-30] MEDS: fentaNYL citrate/PF 100 MCG/2 ML VIAL 25 MCG IVPUSH (15:34)
[2022-09-30] MEDS: oxyCODONE HCl Immed Release 5 MG TABLET PO (15:35)
== END 2022-09-30 17:54 | disposition home or self-care (01) ==
PROVIDERS: Physician Assistant Surgical; Visit Provider Surgery
PROC: 0JB80ZZ Excision of Abdomen Subcutaneous Tissue and Fascia, Open Approach (ICD-10-PCS; CPT 15830; principal; 2022-09-30 10:10)
DX: L98.7 Excessive and redundant skin and subcutaneous tissue (principal); M79.3 Panniculitis, unspecified; Z98.84 Bariatric surgery status; Z20.822 Contact with and (suspected) exposure to COVID-19
CPT/HCPCS: 15830; 86850; 86900; 86901; 87635; 88304; C9088; J0131; J0690; J1100; J1170; J2250; J2405; J3010; J3370

== ENCOUNTER → 2022-10-08 14:19 | Outpatient (BNVA) | payer OTHER, MEDICAID, SELFPAY | PROVIDERS: PCP Internal Medicine; Visit Provider Physician Assistant Surgical | DX: Z13.89 Encounter for screening for other disorder (principal) ==

== ENCOUNTER → 2022-10-15 09:20 | Outpatient (BNVA) | payer OTHER, MEDICAID, SELFPAY | PROVIDERS: PCP Internal Medicine; Referring Provider Internal Medicine; Visit Provider Physician Assistant Surgical | DX: Z13.89 Encounter for screening for other disorder (principal) ==

== ENCOUNTER → 2022-10-19 08:22 | Outpatient (BNVA) | payer OTHER, MEDICAID, SELFPAY | PROVIDERS: PCP Internal Medicine; Visit Provider Physician Assistant Surgical | DX: Z13.89 Encounter for screening for other disorder (principal) ==

== ENCOUNTER → 2022-10-29 08:27 | Outpatient (BNVA) | payer OTHER, MEDICAID, SELFPAY | PROVIDERS: PCP Internal Medicine; Visit Provider Physician Assistant Surgical ==

== ENCOUNTER → 2022-11-12 09:30 | Outpatient (BNVA) | payer OTHER, MEDICAID, SELFPAY | PROVIDERS: PCP Internal Medicine; Visit Provider Physician Assistant Surgical ==

== ENCOUNTER → 2022-12-24 09:56 | Outpatient (BNVA) | payer OTHER, MEDICAID, SELFPAY | PROVIDERS: PCP Internal Medicine; Visit Provider Physician Assistant Surgical ==

== ENCOUNTER 2023-05-26 10:39 | Outpatient (REF) | payer OTHER, MEDICAID, SELFPAY ==
[2023-05-26 10:45] LABS: MANUAL DIFF FLAG NO
[2023-05-26 11:08] LABS: Appearance Urine Clear; Color Urine Yellow; Glucose Urine UA Negative (Negative); Leukocyte Esterase Urine Negative (Negative); Nitrite Urine Negative (Negative); Urine Blood Negative (Negative); Urine Ketones Negative (Negative); Urine Protein Negative (Neg-Trace)
[2023-05-26 11:15] LABS: Bacteria Urine 1+ (None Seen); Hyaline Casts Urine 0-2 /LPF (0-2); RBC Urine 0-2 /HPF (0-2); WBC Urine 0-5 /HPF (0-5)
[2023-05-26 11:17] LABS: Alanine Aminotransferase 16 U/L (0-31); Albumin Level 4.2 g/dL (3.5-5.0); Alkaline Phosphatase 87 U/L (39-117); Anion Gap 12 (12-20); Aspartate Amino Transferase 20 U/L (5-31); Bilirubin Total 0.8 mg/dL (0.0-1.0); Blood Urea Nitrogen 12 mg/dL (9-16); Calcium 9.3 mg/dL (8.4-10.2); Carbon Dioxide 27 mmol/L (22-29); Chloride 105 mmol/L (96-108); Cholesterol 158 mg/dL (<200); Estimated Glomerular Filt Rate > 60; Glucose Fasting 89 mg/dL (60-99); HDL Cholesterol 65 mg/dL (>40); LDL Cholesterol Calculated 77 mg/dL (<100); Potassium 3.8 mmol/L (3.3-5.1); Sodium 140 mmol/L (135-145); Total Protein 7.5 g/dL (6.5-8.0); Triglycerides 81 mg/dL (<150)
[2023-05-26 11:21] LABS: Basophils Percent Auto 0.7 % (0-2); Eosinophils Absolute Auto 0.1 X10*3/uL (0.0-0.4); Eosinophils Percent Auto 0.9 % (0-4); Hematocrit 36.7 % (37.0-47.0); Hemoglobin 12.1 g/dl (12.0-16.0); Imm Gran Abs Auto 0.01 X10*3/uL (0.00-0.03); Imm Gran Pct Auto 0.2 % (0.0-0.4); Lymphocytes Absolute Auto 2.1 X10*3/uL (1.2-4.9); Mean Corpuscular Hemoglobin 29.7 pg (27.0-33.0); Mean Platelet Volume 9.4 fL (9.4-12.3); Monocytes Absolute Auto 0.5 X10*3/uL (0.1-1.2); Monocytes Percent Auto 9.6 % (2-11); Neutrophils Absolute Auto 2.7 x10*3/uL (2.0-8.3); Neutrophils Percent Auto 50.6 % (45-73); Platelet Count 347 X10*3/uL (160-400); Red Blood Count 4.08 X10*6/uL (4.20-5.50); Red Cell Distribution Width 12.3 % (11.0-16.0); White Blood Count 5.4 X10*3/uL (4.8-10.8)
== END 2023-05-26 10:40 | disposition home or self-care (01) ==
LOC: HO.LNP 10:39
PROVIDERS: Visit Provider Internal Medicine
DX: Z00.00 Encounter for general adult medical examination without abnormal findings (principal)
CPT/HCPCS: 80053; 80061; 81001; 85025

== ENCOUNTER 2023-06-02 10:42 | Outpatient (REF) | payer OTHER, MEDICAID, SELFPAY ==
[2023-06-02 11:20] LABS: Magnesium 2.5 mg/dL (1.6-2.6)
[2023-06-02 11:34] LABS: Vitamin D 25-OH Total 51.2 ng/mL (>30)
[2023-06-02 11:40] LABS: Vitamin B12 303 pg/mL (200-900)
== END 2023-06-02 10:43 | disposition home or self-care (01) ==
LOC: HO.LNP 10:42
PROVIDERS: Visit Provider Internal Medicine
DX: R25.2 Cramp and spasm (principal)
CPT/HCPCS: 82306; 82607; 83735

== ENCOUNTER 2023-06-30 08:27 | Outpatient (AMB) | payer OTHER, SELFPAY ==
--- NOTE | 2023-06-30 08:31 | A.OFFVIS_ITS ---
Intake Vital Signs 06/30/23 08:33 Height 5 ft 5 in Weight 149 lb 14.629 oz BMI 24.9 BP 103/74 Blood Pressure Location Lt brachial Position Sitting Pulse 78 Intake Visit Reasons: Pre Colonoscopy/ Dr. Oropeza former patient Intake Note: Kim presents in the office as a colonoscopy screening. CC: She states that she is not having any concerns today! Brush Cleaner Required: No Allergies Seasonal Allergies Allergy (Mild, Verified 06/30/23 08:34) per skin testing for allergies-mild symptoms reported Medication List - Last Reconciled 06/30/23 by Andreea San PA-C estradiol (Lyllana) 1 patch transdermal 2XW trazodone 50 mg PO BEDTIME HPI HPI Comments History of Present Illness Details A 48 y/o female referred for index screening colonoscopy She has no GI or general complaints Had EGD/ colon 2012- Gastric by pass 12/20/2017- lost 87pounds Appetite good Bowels good She has no respiratory or cardiac issues She has no nausea, vomiting, hematemesis, hematochezia fever or chills PFSH Medical History Seasonal allergies History of COVID-19 Surgical History History of Denise-en-Y gastric bypass S/P NILA-BSO (total abdominal hysterectomy and bilateral salpingo-oophorectomy) History of esophagogastroduodenoscopy (EGD) Hx of colonoscopy H/O removal of cyst Hx of section Family History Father Emphysema lung COPD (chronic obstructive pulmonary disease) Mother DM (diabetes mellitus) HTN (hypertension) Glaucoma Brother No problems noted. Brother No problems noted. Brother No problems noted. Son No problems noted. Son No problems noted. Social History (Updated 06/30/23 @ 08:46 by Andreea San PA-C) Household Members Other:: 2 adult children-ages 19 & 21 Are you a primary school childcare attendant to a significant other at home: No Do you presently have visiting nurse or other home services: No Alcohol intake: current Alcohol intake frequency: a few times a week Patient Tobacco Use Status: Never used Tobacco Current occupational status: employed Current occupation: [employer] Review of Systems Const All systems reviewed & are unremarkable except as noted in HPI and below Card Denies chest pain and Denies dyspnea Resp Denies dyspnea GI Denies abdominal pain, Denies heartburn, Denies nausea and Denies vomiting Physical Exam Vital Signs: Last Vital Signs Pulse 78 06/30/23 08:33 BP 103/74 06/30/23 08:33 BMI result Body Mass Index 24.9 Const General: cooperative, healthy appearing, comfortable and no acute distress Orientation/consciousness: patient oriented x3 Limitations: no limitations Eyes Sclerae: sclerae normal Resp Effort & Inspection: normal respiratory effort and able to speak in complete sentences Auscultation: clear to auscultation bilaterally, no rales, no rhonchi and no wheezes Cardio Rate: regular rate Rhythm: regular rhythm Heart sounds: S1 normal heart sound present and S2 normal heart sound present GI Palpation (GI): Soft to palpation and nontender Auscultation: normal bowel sounds Skin General skin exam: no rashes or lesions noted Neuro General: patient oriented x3 Extrem General: Yes full ROM Psych Appearance: grossly normal and well kempt Mental Status: mental status grossly normal Speech and movement: Normal speech and movement present and Clear speech present Affect: normal affect Attitude: cooperative Thought process: Normal thought process present Thought content: Normal thought content present Insight: Good insight present (Psych) Judgement: Good judgement present (Psych) Assessment & Plan Assessment & Plan (1) Encounter for screening colonoscopy: Comment: Very pleasant, no GI complaints EGD colonoscopy 2013 details unavailable Code(s): Z12.11 - Encounter for screening for malignant neoplasm of colon Plan: Screening colonoscopy (2) S/P panniculectomy: Code(s): Z98.890 - Other specified postprocedural states Plan: Recover well (3) S/P gastric bypass: Comment: Very successful, maintained weight loss Code(s): Z98.84 - Bariatric surgery status Plan: Maintain weight loss Orders: Orders Colonoscopy - GI Use Only Today Z12.11 - Encounter for screening for malignant neoplasm of colon Medications: New polyethylene glycol 3350 (Miralax) Take as directed by mouth the day before your procedure. 238 grams PO ONCE 1 day PRN 238 grams 0RF laxative effect bisacodyl (Dulcolax (bisacodyl)) Day before procedure, prep day Take 4 tablets by mouth upon awakening followed by large glass of water 20 mg (4 x 5 mg) PO ONCE 1 day 4 tabs 0RF colonoscopy prep Z12.11 - Encounter for screening for malignant neoplasm of colon Patient Instructions: Pleasant 48-year-old female referred for screening colonoscopy-she has no GI or general complaints Discussed procedure, rare risks need for escort-MiraLax Gatorade prep, reviewed, literature given Encouraged to call questions or concerns Appreciate the opportunity assist in care this pleasant patient Coding Level of Care Code New Pt Level 3 (80160) Diagnoses Encounter for screening colonoscopy Z12.11 S/P panniculectomy Z98.890 S/P gastric bypass Z98.84 Time Spent (min) 25
[2023-06-30 08:33] VITALS: BP 103/74; PULSE 78; BMI 24.9
== END 2023-06-30 08:58 | disposition home or self-care (01) ==
PROVIDERS: PCP Internal Medicine; Visit Provider Physician Assistant
DX: Z12.11 Encounter for screening for malignant neoplasm of colon (principal); Z98.890 Other specified postprocedural states; Z98.84 Bariatric surgery status; Z01.818 Encounter for other preprocedural examination
CPT/HCPCS: 99203

== ENCOUNTER → 2023-06-30 08:27 | Outpatient (BNVA) | payer OTHER, SELFPAY | PROVIDERS: PCP Internal Medicine; Visit Provider Physician Assistant ==

== ENCOUNTER 2023-07-25 11:15 | Outpatient (REF) | payer OTHER, SELFPAY ==
[2023-07-25 11:53] LABS: Appearance Urine Cloudy; Color Urine Yellow; Glucose Urine UA Negative (Negative); Leukocyte Esterase Urine Moderate (2+) (Negative); Nitrite Urine Positive (Negative); PH 5.5 (5.0-9.0); UMIC TRIGGER UACC YES; Urine Blood Negative (Negative); Urine Ketones Negative (Negative); Urine Protein Negative (Neg-Trace)
[2023-07-25 11:57] LABS: Bacteria Urine 4+ (None Seen); RBC Urine 0-2 /HPF (0-2); UACC Culture Trigger YES; WBC Urine >50 /HPF (0-5)
== END 2023-07-25 11:16 | disposition home or self-care (01) ==
LOC: HO.LNP 11:15
PROVIDERS: Visit Provider Internal Medicine
DX: N39.0 Urinary tract infection, site not specified (principal)
CPT/HCPCS: 81001; 87086; 87088; 87186

== ENCOUNTER 2024-05-04 12:21 | Day surgery (SDC) | payer BC, SELFPAY ==
[2024-05-02 11:52] VITALS: BMI 24.8
--- NOTE | 2024-05-02 14:23 | P.CONAN_ITS ---
Documented by User: Karen Pitts NP 05/02/24 14:23 HPI - Anesthesia Eval Consult details Narrative: 48yo F for Colonoscopy PMFSH Active Problems Active Problems: All Active Problems Encounter for screening colonoscopy (Acute) S/P panniculectomy (Acute) S/P gastric bypass (Acute) Excess skin (Acute) Intestinal malabsorption (Acute) Panniculitis (Acute) Past Medical History Medical History Seasonal allergies History of COVID-19 Family History Family History Father Emphysema lung COPD (chronic obstructive pulmonary disease) Mother DM (diabetes mellitus) HTN (hypertension) Glaucoma Brother No problems noted. Brother No problems noted. Brother No problems noted. Son No problems noted. Son No problems noted. Surgical History Surgical History History of Denise-en-Y gastric bypass S/P NILA-BSO (total abdominal hysterectomy and bilateral salpingo-oophorectomy) History of esophagogastroduodenoscopy (EGD) Hx of colonoscopy H/O removal of cyst Hx of section History of Problems with Anesthesia: No Social History Social History Household Members Other:: 2 adult children-ages 19 & 21 Are you a primary director long term care to a significant other at home: No Do you presently have visiting nurse or other home services: No Alcohol intake: current Alcohol intake frequency: does not drink Patient Tobacco Use Status: Never used Tobacco Second Hand Smoke Exposure: No Use of substances other than those prescribed or required for medical reasons: No Are you DNR?: No Advance Directives: No Advance Directives Information Provided: Yes Advance Directives on File: No Current occupational status: employed Current occupation: [employer] Meds Allergies Allergy/AdvReac Type Severity Reaction Status Date / Time Seasonal Allergies Allergy Mild per skin Verified 06/30/23 08:34 testing for allergies-mild symptoms reported Home Medications ?Medication ?Instructions ?Recorded ?Confirmed ?Last Taken ?Type estradiol 0.025 mg/24 hr 1 patch transdermal 2XW 06/15/22 06/30/23 Unknown History semiweekly transdermal patch (Lyllana) trazodone 50 mg tablet 50 mg PO BEDTIME 06/15/22 06/30/23 Unknown History Exam Height,Weight and Vital Signs: Height 5 ft 5 in Weight 67.585 kg Assessment and Plan Assessment Anesthesia Assessment: Chart Reviewed Final Anesthetic Review History of Problems with Anesthesia: No Documented by User: Jeannie Red MD 05/04/24 13:32 [facility] Past Medical History Medical History Seasonal allergies History of COVID-19 Family History Family History Father Emphysema lung COPD (chronic obstructive pulmonary disease) Mother DM (diabetes mellitus) HTN (hypertension) Glaucoma Brother No problems noted. Brother No problems noted. Brother No problems noted. Son No problems noted. Son No problems noted. Surgical History Surgical History History of Denise-en-Y gastric bypass S/P NILA-BSO (total abdominal hysterectomy and bilateral salpingo-oophorectomy) History of esophagogastroduodenoscopy (EGD) Hx of colonoscopy H/O removal of cyst Hx of section Social History Social History Household Members Other:: 2 adult children-ages 19 & 21 Are you a primary director long term care to a significant other at home: No Do you presently have visiting nurse or other home services: No Alcohol intake: current Alcohol intake frequency: does not drink Patient Tobacco Use Status: Never used Tobacco Second Hand Smoke Exposure: No Use of substances other than those prescribed or required for medical reasons: No Are you DNR?: No Advance Directives: No Advance Directives Information Provided: Yes Advance Directives on File: No Current occupational status: employed Current occupation: [employer] Meds Allergies Allergy/AdvReac Type Severity Reaction Status Date / Time Seasonal Allergies Allergy Mild per skin Verified 06/30/23 08:34 testing for allergies-mild symptoms reported Home Medications ?Medication ?Instructions ?Recorded ?Confirmed ?Last Taken ?Type estradiol 0.025 mg/24 hr 1 patch transdermal 2XW 06/15/22 06/30/23 Unknown History semiweekly transdermal patch (Lyllana) trazodone 50 mg tablet 50 mg PO BEDTIME 06/15/22 06/30/23 Unknown History Exam Airway Mallampati Class: II TM Dist: >3cm Neck ROM: Full Loose/Missing/Broken Teeth: No Heart: RRR Lungs: CTA Assessment and Plan Assessment Anesthesia Assessment: Anesthesia Plan Discussed Final Anesthetic Review NPO: Yes ASA Class: II Final Preanesthetic Review: Meds/Allgs Chart Reviewed, Consent Obtained/Reviewed and Anes Risks/Benef Reviewed Patient Risk: Low Procedure Risk: Low Anesthetic Plan Anesthetic Plan: MAC: Disposition: Standard PACU
--- NOTE | 2024-05-04 12:43 | MHC.SHP ---
Pre-Procedural Eval Section A - 24 Hr Update-Section A only Date of Service: 05/04/24 The patient is an INPATIENT: No The patient has been examined within 24 hours of the surgical procedure. The History & Physical has been completed within 30 days and I have reviewed it.: No Section B - Complete if H&P > 30 days Chief Complaint: Colon cancer screening Relevant Family History (Specify if Yes): No Relevant Social History: None Present Medications: see Short Stay Collaborative assessment Medical History: Significant History (Seasonal allergies, history of COVID-19 infection) History of Previous Operations: Relevant previous surgery/procedure and date(s) (History of Denise-en-Y gastric bypass S/P NLIA-BSO (total abdominal hysterectomy and bilateral salpingo-oophorectomy) History of esophagogastroduodenoscopy (EGD) Hx of colonoscopy H/O removal of cyst Hx of section) Allergies: Allergies Allergy/AdvReac Type Severity Reaction Status Date / Time Seasonal Allergies Allergy Mild per skin Verified 06/30/23 08:34 testing for allergies-mild symptoms reported Review of Systems Sugical H&P ROS: Negative: Constitution, Cardiovascular, Respiratory and Gastrointestinal Exam Surgical H&P Exam: Normal: Heart, Normal: Lungs, Normal: Extremities and Normal: Abdomen Plan Diagnosis/Plan: Unchanged I have reviewed the history and physical and performed a pertinent physical examination on my patient. No changes have occurred unless specified. Time Spent With Patient Time: Total time managing care of this patient today ____ minutes.
[2024-05-04 12:45] VITALS: BP 97/48; PULSE 82; RESP 16; TEMP 36.6; O2SAT 96
[2024-05-04] MEDS: Lactated Ringers 1,000 ML 100 ML IVCONT (12:53)
--- NOTE | 2024-05-04 13:58 | P.OPN-COLO_ITS ---
Colonoscopy Operative Note Operative Note Date of Service: 05/04/24 Narrative: COLONOSCOPY TILL CECUM WITH BIOPSIES Pre-op diagnosis: Colon cancer screening (2nd colon). Post-op diagnosis:? Colon polyps, Diverticulosis Endoscopist:? Chapito Serrano MD Anesthesia:?MAC Consent: Indications for the procedure and potential complications of bleeding, perforation, reaction to medications and missed diagnosis were discussed with the patient and informed consent was obtained. Instrument: Olympus PCF H 190 L variable stiffness pediatric colonoscope Monitoring: Vital signs and clinical assessment, intermittent blood pressure monitoring, continuous EKG monitoring, Pulse oximetry and Carbon Dioxide monitoring were done throughout the procedure. Please see anesthesia flowsheet. Colon withdrawl time was 16 minutes. Procedure: The patient was placed in the left lateral decubitis position and pre-procedure medications were administered. After a digital rectal examination of the ano-rectum, the video colonoscope was inserted into the rectum and advanced through the colon to the cecum. The colonoscope was slowly withdrawn in a retrograde panoramic fashion and the colon mucosa was carefully examined including a retroflexed view of the rectum. Findings and interventions are described below. Procedure Difficulty: without difficulty Findings: Terminal Ileum: Not evaluated Cecum: Normal Ascending Colon: Moderate diverticulosis throughout the entire colon Transverse Colon: Moderate diverticulosis throughout the entire colon Descending Colon: Moderate diverticulosis throughout the entire colon Sigmoid Colon: Moderate diverticulosis Rectum: Two 2-3 mm diminutive appearing polyps - removed with a cold biopsy Ano-rectum: Normal Colon preparation: Good after copious irrigation. [place] Bowel Preparation Scale Right colon; 2 Transverse colon: 2 Left colon; 2 (0 = Unprepared colon segment with mucosa not seen due to solid stool that cannot be cleared. 1 = Portion of mucosa of the colon segment seen, but other areas of the colon segment not well seen due to staining, residual stool and/or opaque liquid. 2 = Minor amount of residual staining, small fragments of stool and/or opaque liquid, but mucosa of colon segment seen well. 3 = Entire mucosa of colon segment seen well with no residual staining, small fragments of stool or opaque liquid) Impression and Post Procedure Diagnosis: Colonoscopy Findings: Two diminutive appearing polyps were removed Random biopsies were obtained from right and left colon to check for microscopic colitis. Moderate diverticulosis seen in the entire colon Plan: I will send a letter with biopsy results. Repeat Colonoscopy in 5 years if polyps are adenomatous and 10 year if polyps are hyperplastic. Above findings were reviewed with the patient and relevant handouts were given and the discharge area.
[2024-05-04 14:00] VITALS: BP 88/45; PULSE 80; RESP 12; TEMP 36.1
[2024-05-04 14:05] VITALS: BP 91/57; PULSE 64; RESP 16; O2SAT 97
[2024-05-04 14:15] VITALS: BP 100/68; PULSE 77; RESP 16; TEMP 36.4; O2SAT 100
== END 2024-05-04 14:45 | disposition home or self-care (01) ==
PROVIDERS: PCP Internal Medicine; Visit Provider Internal Medicine Gastroenterology
PROC: 0DJD8ZZ Inspection of Lower Intestinal Tract, Via Natural or Artificial Opening Endoscopic (ICD-10-PCS; CPT 45378; principal; 2024-05-04 13:40)
DX: Z12.11 Encounter for screening for malignant neoplasm of colon (principal); K62.1 Rectal polyp; K57.30 Diverticulosis of large intestine without perforation or abscess without bleeding; J30.2 Other seasonal allergic rhinitis; Z79.899 Other long term (current) drug therapy; Z98.84 Bariatric surgery status; Z98.890 Other specified postprocedural states
CPT/HCPCS: 45380; 88305; J2003; J2704

== ENCOUNTER → 2024-05-04 12:21 | Outpatient (BNV) | payer BC, SELFPAY | PROVIDERS: PCP Internal Medicine; Visit Provider Internal Medicine Gastroenterology | DX: Z12.11 Encounter for screening for malignant neoplasm of colon (principal); K63.5 Polyp of colon; K62.1 Rectal polyp; K57.90 Diverticulosis of intestine, part unspecified, without perforation or abscess without bleeding | CPT/HCPCS: 45380 ==

== ENCOUNTER 2024-06-29 11:52 | Outpatient (REF) | payer BC, SELFPAY ==
[2024-06-29 11:55] LABS: MANUAL DIFF FLAG NO
--- OUTSIDE RECORDS SUMMARY | 2024-06-29 12:03 | XMS_ITS | Patient Health Record ---
Author Organization Brian Burns MD Address [address] [place] [phone] Care Team Providers Care Sitecore Developer Name Role Phone Brian Burns Primary Care Provider ALLERGIES No Known Allergies RESULTS Component Value Reference Range Notes Urine Culture Reviewed date:07/27/2023 07:53:32 PM Interpretation: Performing Lab:[facility], [address] [place] [phone] Notes/Report: O:ESCCOL Escherichia coli Urine Culture Quant Urine Culture > 100,000 cfu/mL Ampicillin 4 Ceftriaxone <=0.25 Gentamicin <=1 Levofloxacin <=0.12 Nitrofurantoin <=16 Trimethoprim/Sulfamethoxazole <=20 UA ClnCatch+Micro w/rflx Cul t Reviewed date:07/25/2023 12:55:19 PM Interpretation: Performing Lab:[facility], [address] [place] [phone] Notes/Report: [id number] 0900 Urine, Clean Catch Color Urine Yellow Appearance Urine Cloudy PH 5.5 5.0-9.0 Glucose Urine UA Negative Negative mg/dL Urine Blood Negative Negative Specific [place] - Urine 1.020 1.005-1.025 Urine Protein Negative Neg-Trace mg/dL Urine Ketones Negative Negative mg/dL Nitrite Urine Positive Negative Leukocyte Esterase Urine Moderate (2+) Negative RBC Urine 0-2 0-2 /HPF WBC Urine >50 0-5 /HPF Squamous Epithelial Cell Urine 11-20 0-2 /HPF Bacteria Urine 4+ None Seen Hyaline Casts Urine 3-5 0-2 /LPF Pathology Reviewed date:05/07/2024 04:50:26 PM Interpretation: Performing Lab:[facility], [address] [place] [phone] Notes/Report: REASON FOR REFERRAL No Information MEDICATIONS Medication SIG (Take, Route, Frequency, Duration) Notes Start Date End Date Status Ibuprofen 800 MG 1 tablet Orally Thre e times a day for 30 day(s) 07/06/2016 Not-Taking Estradiol 0.0375 MG/24HR ARMIDA 1 PA EXT TO THE SKIN 2 TIMES A WK Transdermal for 90 Active traZODone HCl 50 MG TAKE 2 TABLETS BY [facility] EVERY DAY AT BEDTIME NEEDED for 30 Active Pantoprazole Sodium 40 MG 1 tablet Orall y Once a day Not-Taking Fioricet 50-300-40 MG 1 capsule as neede d Orally every 4 hrs Not-Taking Propranolol HCl 20 MG 1 tablet Orally Tw ice a day Not-Taking IMMUNIZATIONS Vaccine Route Administration Date Status Comme nts Fluarix Quadrivalent IM Intramuscular 03/08/2014 Administe red Fluarix Quadrivalent IM Intramuscular 07/06/2016 Administe red Fluarix Quadrivalent IM Intramuscular 02/22/2017 Administe red Fluarix Quadrivalent IM Intramuscular 03/14/2018 Administe red Fluarix Quadrivalent IM Intramuscular 03/20/2019 Administe red Fluarix Quadrivalent IM Intramuscular 04/11/2020 Administe red SARS-COV-2 Pfizer Unknown 09/18/2020 Administered SARS-COV-2 Pfizer Unknown 10/12/2020 Administered Fluarix Quadrivalent IM Intramuscular 04/07/2021 Administe chiara SARS-COV-2 Pfizer Unknown 05/06/2021 Administered Fluarix Quadrivalent Unknown 04/11/2022 Administered Fluarix Quadrivalent Unknown 04/15/2023 Administered Flu Vaccine Unknown 04/11/2015 Refused Flu Vaccine Unknown 03/08/2014 Pending SOCIAL HISTORY Tobacco Use: Social History Observation Description Date Details (start date - stop date) Never Smoker NA - NA Sex Assigned At : Social History Observation Description Sex Assigned At Unknown Tobacco Use/Smoking Question Answer Notes Patient is a nonsmoker Additional Findings: Tobacco Non-User Cu rrent non-smoker, currently using no form of tobacco Alcohol Screen Question Answer Notes Did you have a drink contain ing alcohol in the past year? Yes How often did you have a dri nk containing alcohol in the past year? Monthly or less (1 point) How many drinks did you have on a typical day when you were drinking in the past year? 1 or 2 drinks (0 point) How often did you have 6 or more drinks on one occasion in the past year? Never (0 point) Points 1 Interpretation Negative PROBLEMS Problem Type ICD Code Onset Dates Problem Status W/U Status Risk SNOMED Code Notes Problem Primary insomnia (F51.01) Active confirmed 8261168 Problem Endometriosis of pelvic peritoneum (N80.3) Active confirmed 376908229 Problem Lumbar disc disease (M51.9) Active confirmed Disorder of lumbar disc (876658227) Problem Non morbid obesity due to excess calories (E66.09) Active confirmed 131110900 Problem Asthmatic bronchitis, mild intermittent, uncomplicated (J45.20) Active confirmed 842197220 Problem Tension headache (G44.209) Active confirmed 526307465 Problem Dysthymia (F34.1) Active confirmed 7866 7006 Problem Panic attacks (F41.0) Active confirmed 314377943 Problem Migraine without aura and with status migrainosus, not intractable (G43.001) Active confirmed 549579991 Problem Bruxism (F45.8) Active confirmed 005173 006 Problem History of solitary pulmonary nodule (Z87.898) Active confirmed 087601795 Problem Duodenitis (K29.80) Active confirmed 77993744 Problem Other and unspecified ovarian cyst (N83.209) Active confirmed 29776486 Problem Recurrent sinusitis (J32.9) Active confirmed 198658406 VITAL SIGNS Blood pressure diastolic 64 mm Hg 09/20/2023 Height 64 in 09/20/2023 Blood pressure systolic 90 mm Hg 09/20/2023 Weight 148 lbs 09/20/2023 BMI 25.40 kg/m2 09/20/2023 PROCEDURES Procedure Date Ordered Date Performed Result Body Sit e Colonoscopy, Screening 05/04/2024 05/04/2024 repea t colonoscopy pending path Encounters Encounter Location Date Provider Diagnosis Brian Burns MD [address] [place] [phone] 06/29/2024 Brian Burns Blood tests for routine general physical examination Z00.00 Brian Burns MD [address] [place] [address] Drive [address] [place] [id number] 07/25/2023 Brian Burns UTI (urinary tract infection) N39.0 Brian Burns MD [address] [id number] 09/20/2023 Brian Burns Impacted cerumen of right ear H61.21 Brian Burns MD [address] [place] [id number] 07/26/2023 Brian Burns MD [address] [place] [id number] 08/22/2023 Brian Burns Recurrent sinusitis J32.9 ASSESSMENTS Encounter Date Diagnosis Assessment Notes Treatment Notes Treatment Clinical Notes 06/29/2024 Blood tests for routine general physical examination (ICD-10 - Z00.00) 09/20/2023 Impacted cerumen of right ear (ICD-10 - H61.21) 08/22/2023 Recurrent sinusitis (ICD-10 - J32.9) patient verbalized understanding of medication and directions for iuse 07/25/2023 UTI (urinary tract infection) (ICD-10 - N39.0) PLAN OF TREATMENT Pending Test Test Name Order Date CT CHEST WITH CONTRAST 02/05/2014 Complete Blood Count Auto Diff Comprehensive [place]. Panel Fast Lipid Panel 06/29/2024 UA ClnCatch+Micro w/rflx Cult 06/29/2024 Future Test Test Name Order Date US PELVIS 11/19/2016 Next Appt Details Provider Name:Brian Funez ier, 07/17/2024 08:00:00 AM, [address] [facility], [address], [place], [place], [phone], Insurance Providers Payer Name Payer Address Payer Phone Subscriber Number Group Number Insured Name Patient Relationship to Insured Coverage Start Date Coverage End Date [employer] [address] [place], [place] [phone] [id number] Kim Garcia Self - patient is the insured MEDICAL (GENERAL) HISTORY Medical History History ICD Code Colonoscopy - 05/25/12. colonoscopy 05/04 repeat 10y liver mri 2013 was just hemangioma lung nodules. neg pet repeat ct in april 2014. had seen dr peck and had follow up and nodules all shrank down and no further follow up needed Liver lesion, left lobe K76.89 History of solitary pulmonary nodule Z87 .898 History of solitary pulmonary nodule Surgical History Surgery Date(Month/Year) hysterectomy w/ bilateral salpingo oopho rectomy 09/2015
--- OUTSIDE RECORDS SUMMARY | 2024-06-29 12:03 | XMS_ITS ---
Author Organization Brian Burns MD Address [address] [place] [phone] Care Team Providers Care Inspector And Tester Name Role Phone Brian Burns Primary Care Provider [phone] REASON FOR VISIT FASTING LABS Encounters Encounter Location Date Provider Diagnosis Brian Burns MD [address] [place] [id number] 06/29/2024 Brian Burns Blood tests for routine general physical examination Z00.00 ASSESSMENTS Encounter Date Diagnosis Assessment Notes Treatment Notes Treatment Clinical Notes 06/29/2024 Blood tests for routine general physical examination (ICD-10 - Z00.00) PLAN OF TREATMENT Pending Test Test Name Order Date Complete Blood Count Auto Diff 5 Comprehensive [place]. Panel Fast 5 Lipid Panel 06/29/2024 UA ClnCatch+Micro w/rflx Cult 06/29/2024 Next Appt Details Provider Name:Brian france, 07/17/2024 08:00:00 AM, [address] [place] [address], [address], [place], [place], [phone],
--- OUTSIDE RECORDS SUMMARY | 2024-06-29 12:03 | XMS_ITS ---
Author Organization Brian Burns MD Address [address] [place] [phone] Care Team Providers Care Security Vehicle Patrol Officer Name Role Phone Brian Burns Primary Care Provider [phone] ALLERGIES No Known Allergies REASON FOR VISIT right ear blocked x since before , No Covid symptoms MEDICATIONS Medication SIG (Take, Route, Frequency, Duration) Notes Start Date End Date Status Ibuprofen 800 MG 1 tablet Orally Thre e times a day for 30 day(s) 07/06/2016 Not-Taking Estradiol 0.0375 MG/24HR ARMIDA 1 PA EXT TO THE SKIN 2 TIMES A WK Transdermal for 90 Active Pantoprazole Sodium 40 MG 1 tablet Orall y Once a day Not-Taking Fioricet 50-300-40 MG 1 capsule as neede d Orally every 4 hrs Not-Taking Propranolol HCl 20 MG 1 tablet Orally Tw ice a day Not-Taking traZODone HCl 50 MG TAKE 2 TABLETS BY [place] EVERY DAY AT BEDTIME NEEDED for 30 Active VITAL SIGNS BMI 25.40 kg/m2 09/20/2023 Blood pressure systolic 90 mm Hg 09/20/19 24 Blood pressure diastolic 64 mm Hg 024 Height 64 in 09/20/2023 Weight 148 lbs 09/20/2023 Encounters Encounter Location Date Provider Diagnosis Brian Burns MD [address] [place] [address] [address] [place], [place] [phone] 09/20/2023 Brian Burns Impacted cerumen of right ear H61.21 ASSESSMENTS Encounter Date Diagnosis Assessment Notes Treatment Notes Treatment Clinical Notes 09/20/2023 Impacted cerumen of right ear (ICD-10 - H61.21) PLAN OF TREATMENT Next Appt Details Provider Name:Brian france, 07/17/2024 08:00:00 AM, [address] [place] [address], [address], [place], [place], [phone], Procedure Notes * Category Sub-Category Detail Notes Cerumen removal Procedure under direct vis ualization, right ear, irrigated with water/H2O2 Post-procedure Pt tolerated procedu re well and feeling came back to normal Progress Notes * Examination Category Sub-Category Detail Notes General Examination GENERAL APPEARANCE: alert, w ell hydrated, in no distress EARS: RIGHT EAR, light ref nedra present, light reflex present, LEFT EAR small amt of cerumen
--- OUTSIDE RECORDS SUMMARY | 2024-06-29 12:03 | XMS_ITS ---
Author Organization Brian Burns MD Address [address] [place] [phone] Care Team Providers Care Internetworking Technician Name Role Phone Brian Burns Primary Care Provider ALLERGIES No Known Allergies REASON FOR VISIT head congested ?sinus infection, no fever. Patient is not able to test for covid, c/oheadace, body aches head congestion , nonproductive cough, Video [phone] MEDICATIONS Medication SIG (Take, Route, Frequency, Duration) Notes Start Date End Date Status Fioricet 50-300-40 MG 1 capsule as neede d Orally every 4 hrs Not-Taking Amoxicillin-Pot Clavulanate 875-125 MG 1 tablet Orally every 12 hrs for 10 days 08/22/2023 Active Propranolol HCl 20 MG 1 tablet Orally Tw ice a day Not-Taking Ibuprofen 800 MG 1 tablet Orally Thre e times a day for 30 day(s) 07/06/2016 Not-Taking Pantoprazole Sodium 40 MG 1 tablet Orall y Once a day Not-Taking traZODone HCl 50 MG TAKE 2 TABLETS BY [place] EVERY DAY AT BEDTIME NEEDED for 30 Active Estradiol 0.0375 MG/24HR ARMIDA 1 PA EXT TO THE SKIN 2 TIMES A WK Transdermal for 90 Active PROBLEMS Problem Type ICD Code Onset Dates Problem Status W/U Status Risk SNOMED Code Notes Problem Recurrent sinusitis (J32.9) Active confirmed [id number] VITAL SIGNS BMI 25.57 kg/m2 08/22/2023 Height 64 in 08/22/2023 Weight 149 lbs 08/22/2023 weight 149 BP not taken no t emp Encounters Encounter Location Date Provider Diagnosis Brian Burns MD [address] [place] [address] [place] [id number] 08/22/2023 Brian Burns Recurrent sinusitis J32.9 ASSESSMENTS Encounter Date Diagnosis Assessment Notes Treatment Notes Treatment Clinical Notes 08/22/2023 Recurrent sinusitis (ICD-10 - J32.9) patient verbalized understanding of medication and directions for iuse PLAN OF TREATMENT Medication Medication Name Sig Start Date Stop Date Notes Amoxicillin-Pot Clavulanate 875-125 MG 1 tablet Orally every 12 hrs for 10 days 08/22/2023 Treatment Notes Assessment Notes Recurrent sinusitis patient verbalized u nderstanding of medication and directions for iuse Next Appt Details Provider Name:Brian Funez iemarcos, 07/17/2024 08:00:00 AM, [address] [place] [address], [place] [address], [place], [place], [phone], Progress Notes * Examination Category Sub-Category Detail Notes General Examination GENERAL APPEARANCE: alert, w ell hydrated, in no distress History and Physical Notes * HPI (History of Present Illness) Category Sub-Category Detail Notes Symptom(s) Telehealth Location of prov ider rendering services:: [address] [place] [address], Suite [facility] Location of patient:: at address listed in demographics for today's visit Patient identification confirmed using:: Name, , SSN, Insurance information Telehealth method:: Video co nference where patient is visible to the provider of care Consent:: Patient verbally c onsented to treatment, Patient verbally consented to billing insurance company, Patient informed of any privacy concerns related to method of visit
[2024-06-29 12:21] LABS: Basophils Absolute Auto 0.1 X10*3/uL (0.0-0.2); Basophils Percent Auto 0.9 % (0-2); Eosinophils Absolute Auto 0.1 X10*3/uL (0.0-0.4); Eosinophils Percent Auto 1.3 % (0-4); Hemoglobin 11.9 g/dl (12.0-16.0); Imm Gran Abs Auto 0.02 X10*3/uL (0.00-0.03); Imm Gran Pct Auto 0.3 % (0.0-0.4); Lymphocytes Absolute Auto 2.2 X10*3/uL (1.2-4.9); Lymphocytes Percent Auto 32.1 % (20-40); Mean Corpuscular HGB Conc 33.1 g/dl (31.0-35.0); Mean Corpuscular Hemoglobin 29.8 pg (27.0-33.0); Mean Platelet Volume 9.2 fL (9.4-12.3); Monocytes Absolute Auto 0.6 X10*3/uL (0.1-1.2); Monocytes Percent Auto 8.4 % (2-11); Neutrophils Absolute Auto 3.9 x10*3/uL (2.0-8.3); Platelet Count 410 X10*3/uL (160-400); Red Cell Distribution Width 12.8 % (11.0-16.0); White Blood Count 6.8 X10*3/uL (4.8-10.8)
[2024-06-29 12:22] LABS: Appearance Urine Clear; Color Urine Yellow; Glucose Urine UA Negative (Negative); Leukocyte Esterase Urine Moderate (2+) (Negative); Nitrite Urine Positive (Negative); PH 5.5 (5.0-9.0); UMIC TRIGGER UACC YES; Urine Blood Negative (Negative); Urine Ketones Negative (Negative); Urine Protein Negative (Neg-Trace)
[2024-06-29 12:25] LABS: Bacteria Urine 4+ (None Seen); Hyaline Casts Urine 0-2 /LPF (0-2); RBC Urine 0-2 /HPF (0-2); UACC Culture Trigger YES; WBC Urine >50 /HPF (0-5)
[2024-06-29 13:01] LABS: Alanine Aminotransferase 17 U/L (0-31); Albumin Level 4.1 g/dL (3.5-5.0); Alkaline Phosphatase 105 U/L (39-117); Anion Gap 9 (12-20); Aspartate Amino Transferase 24 U/L (5-31); Bilirubin Total 1.1 mg/dL (0.0-1.0); Blood Urea Nitrogen 15 mg/dL (9-16); Calcium 8.8 mg/dL (8.4-10.2); Carbon Dioxide 27 mmol/L (22-29); Chloride 107 mmol/L (96-108); Cholesterol 156 mg/dL (<200); Estimated Glomerular Filt Rate > 60; Glucose Fasting 93 mg/dL (60-99); HDL Cholesterol 72 mg/dL (>40); LDL Cholesterol Calculated 64 mg/dL (<100); Potassium 3.7 mmol/L (3.3-5.1); Sodium 139 mmol/L (135-145); Total Protein 7.5 g/dL (6.5-8.0); Triglycerides 103 mg/dL (<150)
== END 2024-06-29 11:53 | disposition home or self-care (01) ==
LOC: HO.LNP 11:52
PROVIDERS: Visit Provider Internal Medicine
DX: Z00.00 Encounter for general adult medical examination without abnormal findings (principal); R82.79 Other abnormal findings on microbiological examination of urine
CPT/HCPCS: 80053; 80061; 81001; 85025; 87086; 87088; 87186

== ENCOUNTER 2024-10-14 10:25 | Emergency (ER) | payer BC, SELFPAY ==
--- NOTE | ~2024-10-14 | CT_ITS ---
CLINICAL HISTORY: Left side abdominal left flank pain CT abdomen and pelvis without IV contrast. COMPARISON: None FINDINGS: Small hiatal hernia. Normal gallbladder. Noncontrast appearance of the liver, spleen, pancreas and adrenal glands are unremarkable. No renal or ureteral calculus bilaterally. No hydronephrosis. Status post gastric bypass. Gastric remnant is mildly distended with what appears to be fecalized material. Alimentary limb is contracted. Mild colonic stool burden. Mild distal colonic diverticulosis without evidence of diverticulitis. No mesenteric or retroperitoneal lymphadenopathy. Normal abdominal aorta. Normal appearance of the urinary bladder. No adnexal mass. Small fat containing umbilical hernia. No acute fracture or suspicious bone lesion. IMPRESSION: 1. No evidence of renal obstruction. No renal or ureteral calculus bilaterally. 2. Mild distention of the gastric remnant with contracted alimentary limb. A component of obstruction at the anastomosis may be present. 3. Colonic diverticulosis without evidence of diverticulitis. This document has been electronically signed by: Ian Bonilla MD on 10/14/2024 14:58:42
[2024-10-14 10:42] VITALS: BP 123/77; PULSE 74; RESP 20; TEMP 36.6; O2SAT 98; BMI 27.5
[2024-10-14 11:44] LABS: MANUAL DIFF FLAG NO
[2024-10-14 11:45] LABS: Basophils Absolute Auto 0.1 X10*3/uL (0.0-0.2); Basophils Percent Auto 0.9 % (0-2); Eosinophils Percent Auto 0.7 % (0-4); Hematocrit 33.7 % (37.0-47.0); Hemoglobin 11.2 g/dl (12.0-16.0); Imm Gran Abs Auto 0.01 X10*3/uL (0.00-0.03); Imm Gran Pct Auto 0.2 % (0.0-0.4); Lymphocytes Absolute Auto 1.8 X10*3/uL (1.2-4.9); Lymphocytes Percent Auto 29.9 % (20-40); Mean Corpuscular HGB Conc 33.2 g/dl (31.0-35.0); Mean Corpuscular Hemoglobin 29.6 pg (27.0-33.0); Mean Corpuscular Volume 88.9 fL (80.0-98.0); Mean Platelet Volume 8.7 fL (9.4-12.3); Monocytes Absolute Auto 0.5 X10*3/uL (0.1-1.2); Monocytes Percent Auto 7.7 % (2-11); Neutrophils Absolute Auto 3.6 x10*3/uL (2.0-8.3); Neutrophils Percent Auto 60.6 % (45-73); Platelet Count 323 X10*3/uL (160-400); Red Blood Count 3.79 X10*6/uL (4.20-5.50); Red Cell Distribution Width 13.6 % (11.0-16.0); White Blood Count 5.9 X10*3/uL (4.8-10.8)
[2024-10-14 11:46] LABS: Appearance Urine Clear; Color Urine Yellow; Glucose Urine UA Negative (Negative); Leukocyte Esterase Urine Small (1+) (Negative); Nitrite Urine Negative (Negative); PH 5.5 (5.0-9.0); UMIC TRIGGER UACC YES; Urine Blood Negative (Negative); Urine Ketones Negative (Negative); Urine Protein Negative (Neg-Trace)
[2024-10-14 11:48] LABS: UPreg QC Valid YES; Urine Pregnancy NEGATIVE (NEGATIVE)
[2024-10-14 11:49] LABS: Bacteria Urine None Seen (None Seen); Hyaline Casts Urine 0-2 /LPF (0-2); RBC Urine 0-2 /HPF (0-2); UACC Culture Trigger YES
[2024-10-14 12:01] LABS: Alanine Aminotransferase 17 U/L (0-31); Albumin Level 3.9 g/dL (3.5-5.0); Alkaline Phosphatase 98 U/L (39-117); Anion Gap 13 (12-20); Aspartate Amino Transferase 27 U/L (5-31); Bilirubin Direct 0.3 mg/dL (0.0-0.5); Blood Urea Nitrogen 10 mg/dL (9-16); Calcium 8.8 mg/dL (8.4-10.2); Carbon Dioxide 23 mmol/L (22-29); Chloride 107 mmol/L (96-108); Creatinine Clr Calc Pharmacy 90.2; Estimated Glomerular Filt Rate > 60; Glucose Random 93 mg/dL (60-115); Lipase 47 U/L (8-78); Sodium 139 mmol/L (135-145); Total Protein 7.1 g/dL (6.5-8.0)
[2024-10-14 13:51] VITALS: BP 118/74; PULSE 84; RESP 16; TEMP 36.6; O2SAT 99
--- NOTE | 2024-10-14 13:59 | ED_ITS ---
HPI - Abdominal Pain General Chief Complaint: Abdominal Pain Stated Complaint: left sided pain Time Seen by Provider: 10/14/24 13:50 Source: patient Mode of arrival: ambulatory Limitations: no limitations History of Present Illness ED Provider: DR. Kelly HPI narrative: 49-year-old female came in for evaluation of left-sided abdominal pain started 5 days ago in the left lower abdomen progressively a was getting worse now the pain is 10/10 in the left lower abdomen radiating to the left flank area, no dysuria, no frequency urination, no hematuria, normal bowel movement last bowel movement was yesterday, passing flatus, no diarrhea, no fever, chills. Past abdominal surgery history significant for gastrectomy bypass in 2018, , and hysterectomy. Related Data Home Medications ?Medication ?Instructions ?Recorded ?Confirmed estradiol 0.025 mg/24 hr 1 patch transdermal 2XW 06/15/22 06/30/23 semiweekly transdermal patch (Lyllana) trazodone 50 mg tablet 50 mg PO BEDTIME 06/15/22 06/30/23 Allergies Allergy/AdvReac Type Severity Reaction Status Date / Time Seasonal Allergies Allergy Mild per skin Verified 10/14/24 10:43 testing for allergies-mild symptoms reported Review of Systems Review of Systems All other systems are reviewed and are negative Constitutional: Reports as per HPI and Reports no additional constitutional complaints Eyes: Reports as per HPI and Reports no additional eye complaints Reports system reviewed and no additional complaints, except as documented Cardiovascular: Reports as per HPI and Reports no additional cardiovascular complaints Respiratory: Reports as per HPI and Reports no additional respiratory complaints Gastrointestinal: Reports as per HPI and Reports no additional gastrointestinal complaints Genitourinary: Reports no additional female genitourinary complaints Musculoskeletal: Reports no additional musculoskeletal complaints Skin/Breast: Reports system reviewed and no additional complaints, except as docu Psychiatric: Reports no additional psychiatric complaints Endocrine: Reports no additional endocrine complaints Hematologic/Lymphatic: Reports no additional hematologic/lymphatic complaints Allergic/Immunologic: Reports no additional allergic/immunologic complaints Reports system reviewed and no additional complaints, except as documented and Reports Abnormal speech present [facility] Past Medical History Medical History Seasonal allergies History of COVID-19 Surgical History History of Denise-en-Y gastric bypass S/P NILA-BSO (total abdominal hysterectomy and bilateral salpingo-oophorectomy) History of esophagogastroduodenoscopy (EGD) Hx of colonoscopy H/O removal of cyst Hx of section Family History Family History Father Emphysema lung COPD (chronic obstructive pulmonary disease) Mother DM (diabetes mellitus) HTN (hypertension) Glaucoma Brother No problems noted. Brother No problems noted. Brother No problems noted. Son No problems noted. Son No problems noted. Social History Social History Household Members Other:: 2 adult children-ages 19 & 21 Are you a primary rn patient care to a significant other at home: No Do you presently have visiting nurse or other home services: No Alcohol intake: current Alcohol intake frequency: does not drink Patient Tobacco Use Status: Never used Tobacco Second Hand Smoke Exposure: No Advance Directives: No Advance Directives Information Provided: No Do you have a plan to hurt others: No Plan Current occupational status: employed Current occupation: [employer] Physical Exam ED Vital Signs: Vital Signs - 24 hr 10/14/24 10:42 10/14/24 13:51 Temperature 98 F 98 F Pulse Rate 74 84 Respiratory Rate 20 16 Blood Pressure 123/77 118/74 Pulse Oximetry 98 99 Oxygen Delivery Method Room Air Room Air BMI result Body Mass Index 27.5 Vital signs have been reviewed and appear to be correct. Blood pressure elevated. Heart rate normal. Respiratory rate normal. Temperature normal. Oxygen saturation normal. Appearance: Alert. Oriented X3. No acute distress. Head: Normal external exam. Normocephalic. Atraumatic. No Terry signs noted. No raccoon eyes noted Eyes: PERRLA. EOMI. Conjunctiva and sclera normal. Eyelids normal. ENT: TM's Normal. Pharynx normal. Uvula midline. Moist mucous membranes. No trismus noted. No drooling noted. No muffled voice noted. Neck: Normal inspection. Neck supple. FROM. No adenopathy. Thyroid Normal. No meningeal signs. No neck mass noted. CVS: Normal heart rate and rhythm. Heart sound normal. No murmurs noted. Pulses normal throughout. Respiratory: No respiratory distress. Painless inspiration. Breath sounds normal. No wheezes/rales/rhonchi noted. Chest nontender. No accessory muscle usage noted or decreased air movement noted. Abdomen: Soft, left lower quadrant abdominal tenderness, no rebound tenderness, no guarding. Bowel sounds normal in all 4 quadrants. No distention noted. No organomegaly noted. No visible injury noted. Back: No CVA tenderness. Full range of motion noted. Skin: Skin warm and dry. Normal skin color. Normal skin turgor. No rashes/lesions/lacerations noted. Extremities: No lower extremity edema. Extremities exhibit normal range of motion. Extremities nontender. Neuro: Oriented X 3. Cranial nerve exam: II-XII are grossly intact No motor deficit. No sensory deficit. Reflexes normal. Course Reevaluation(s) Reevaluation #1: abd pain x5 days.s/p Denise-en-Y gastric bypass, unremarkable labs, CT is concern of component of obstruction in the anastomosis and, still await for Dr. Hubbard to consult, case signed out to Dr. Sanchez Time: 16:10 Medical Decision Making Differential Diagnosis Differential Diagnoses: The differential diagnosis associated with the presentation includes (Bowel obstruction, colitis, diverticulitis, acute appendicitis, complication of bypass surgery, electrolyte derangement, severe anemia.) Admission/Observation Consideration of admission/observation: Escalation of care including admission/observation considered Lab Data MDM Lab Attestation statement: I reviewed the patient's lab results. 10/14/24 11:38 10/14/24 11:38 Labs: Lab Results 10/14/24 Range/Units 11:38 WBC 5.9 (4.8-10.8) X10*3/uL RBC 3.79 L (4.20-5.50) X10*6/uL Hgb 11.2 L (12.0-16.0) g/dl Hct 33.7 L (37.0-47.0) % MCV 88.9 (80.0-98.0) fL MCH 29.6 (27.0-33.0) pg MCHC 33.2 (31.0-35.0) g/dl RDW 13.6 (11.0-16.0) % Plt Count 323 (160-400) X10*3/uL MPV 8.7 L (9.4-12.3) fL Immature Gran % (Auto) 0.2 (0.0-0.4) % Neut % (Auto) 60.6 (45-73) % Lymph % (Auto) 29.9 (20-40) % [place] % (Auto) 7.7 (2-11) % Eos % (Auto) 0.7 (0-4) % Baso % (Auto) 0.9 (0-2) % Lymph # (Auto) 1.8 (1.2-4.9) X10*3/uL [place] # (Auto) 0.5 (0.1-1.2) X10*3/uL Eos # (Auto) 0.0 (0.0-0.4) X10*3/uL Baso # (Auto) 0.1 (0.0-0.2) X10*3/uL Abs Immat Gran (auto) 0.01 (0.00-0.03) X10*3/uL Absolute Neuts (auto) 3.6 (2.0-8.3) x10*3/uL Absolute Nucleated RBC 0.000 (0.0-0.012) X10*3/uL Nucleated RBC % (auto) 0.0 (0.0-0.2) /100WBC Sodium 139 (135-145) mmol/L Potassium 4.0 (3.3-5.1) mmol/L Chloride 107 (96-108) mmol/L Carbon Dioxide 23 (22-29) mmol/L Anion Gap 13 (12-20) BUN 10 (9-16) mg/dL Creatinine 0.72 (0.5-1.4) mg/dL Estim Creat Clear Calc 90.2 Estimated GFR > 60 Random Glucose 93 (60-115) mg/dL Calcium 8.8 (8.4-10.2) mg/dL Total Bilirubin 1.0 (0.0-1.0) mg/dL Direct Bilirubin 0.3 (0.0-0.5) mg/dL AST 27 (5-31) U/L ALT 17 (0-31) U/L Alkaline Phosphatase 98 (39-117) U/L Total Protein 7.1 (6.5-8.0) g/dL Albumin 3.9 (3.5-5.0) g/dL Lipase 47 (8-78) U/L Urine Color Yellow Urine Appearance Clear Urine pH 5.5 (5.0-9.0) Ur Specific [place] 1.010 (1.005-1.025) Urine Protein Negative (Neg-Trace) mg/dL Urine Glucose (UA) Negative (Negative) mg/dL Urine Ketones Negative (Negative) mg/dL Urine Blood Negative (Negative) Urine Nitrite Negative (Negative) Ur Leukocyte Esterase Small (1+) H (Negative) Urine RBC 0-2 (0-2) /HPF Urine WBC 6-10 H (0-5) /HPF Ur Squamous Epith Cells 3-5 (0-2) /HPF Urine Bacteria None Seen (None Seen) Hyaline Casts 0-2 (0-2) /LPF Urine Test NEGATIVE (NEGATIVE) Independent Interpretation I performed an independent interpretation of an: CT Scan (Abdomen and pelvis:1. No evidence of renal obstruction. No renal or ureteral calculus bilaterally. 2. Mild distention of the gastric remnant with contracted alimentary limb. A component of obstruction at the anastomosis may be present. 3. Colonic diverticulosis without evidence of diverticulitis) Radiology Impression Discussion of test interpretation with radiology: I have reviewed the radiologist's reading. Discharge Plan Discharge Clinical Impression: Abdominal pain Prescriptions: No Action trazodone 50 mg tablet 50 mg PO BEDTIME estradiol [Lyllana] 0.025 mg/24 hr patch semiweekly 1 patch transdermal 2XW Rx Instructions: apply 1 patch for 3 days alternating with 1 patch for 4 days each week Print Language: Sierra Leonean
--- NOTE | 2024-10-14 14:13 | PC.NURSE ---
49-year-old female came in for evaluation of left-sided abdominal pain started 5 days ago in the left lower abdomen progressively a was getting worse now the pain is 10/10 in the left lower abdomen radiating to the left flank area, no dysuria, no frequency urination, no hematuria, normal bowel movement last bowel movement was yesterday. States pain increased over the weekend. History of gastric bypass and states when eating her regular amount of food had a full feeling. Alert and oriented. Lungs clear bilat. Respirations even and non-labored. Abdomen soft with positive bowel sounds. c/o left abdominal/flank tenderness. Pending CT
[2024-10-14 16:00] VITALS: BP 118/81; PULSE 77; RESP 18; TEMP 36.8; O2SAT 99
[2024-10-14] MEDS: Acetaminophen 325 MG TABLET 975 MG PO (17:25)
[2024-10-14 18:34] VITALS: BP 117/61; PULSE 78; RESP 18; TEMP 36.6; O2SAT 98
--- NOTE | 2024-10-14 18:37 | PM.HPGS ---
History of Present Illness History of Present Illness Date of Service: 10/14/24 Chief complaint: Left Sided Pain Narrative: Kim Garcia is a 49 year old female. Patient is known to service since her RYGB in 2018. She presented to the ER today with the complaint of left-sided abdominal pain for the last 5 days. The patient was in her usual state of health last Tuesday when she woke up with pain in her left abdomen. The pain was non-radiating, sharp on movement, she describes it to be 'achey' on rest, and with no other associated symptoms. On a scale of 1-10, the pain is 6/10 with movement and 2/10 on rest. The pain is alleviated with 2 tablets of Tylenol. The pain was progressively worsening until last night, but has gotten slightly better since. 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 She decided to follow up in the ER because of her history of recurrent UTIs. The patient has not followed with the program since 2022 after her panniculectomy. She is not following any meal plans or taking protein supplements but has been mindful of her eating. Physical activity includes walking outside. She has recently gained 10lbs. Review of Systems Constitutional: Constitutional: Reports as per HPI Gastrointestinal: Gastrointestinal: Reports no additional gastrointestinal complaints Genitourinary: Genitourinary: Reports no additional female genitourinary complaints [facility] Past Medical History Medical History (Updated 10/14/24 @ 18:39 by Jimmy Hubbard MD) Seasonal allergies History of COVID-19 Family History Family History Father Emphysema lung COPD (chronic obstructive pulmonary disease) Mother DM (diabetes mellitus) HTN (hypertension) Glaucoma Brother No problems noted. Brother No problems noted. Brother No problems noted. Son No problems noted. Son No problems noted. Surgical History Surgical History History of Denise-en-Y gastric bypass S/P NILA-BSO (total abdominal hysterectomy and bilateral salpingo-oophorectomy) History of esophagogastroduodenoscopy (EGD) Hx of colonoscopy H/O removal of cyst Hx of section Social History Social History Household Members Other:: 2 adult children-ages 19 & 21 Are you a primary manager home healthcare to a significant other at home: No Do you presently have visiting nurse or other home services: No Alcohol intake: current Alcohol intake frequency: does not drink Patient Tobacco Use Status: Never used Tobacco Second Hand Smoke Exposure: No Advance Directives: No Advance Directives Information Provided: No Do you have a plan to hurt others: No Plan Current occupational status: employed Current occupation: [email or web address] Allergies Allergy/AdvReac Type Severity Reaction Status Date / Time Seasonal Allergies Allergy Mild per skin Verified 10/14/24 10:43 testing for allergies-mild symptoms reported Home Medications ?Medication ?Instructions ?Recorded ?Confirmed ?Last Taken ?Type estradiol 0.025 mg/24 hr 1 patch transdermal 2XW 06/15/22 06/30/23 Unknown History semiweekly transdermal patch (Lyllana) trazodone 50 mg tablet 50 mg PO BEDTIME 06/15/22 06/30/23 Unknown History Physical Exam Vital Signs: Vital Signs: Last Vital Signs Temp 98 F 10/14/24 18:34 Pulse 78 10/14/24 18:34 Resp 18 10/14/24 18:34 BP 117/61 10/14/24 18:34 Pulse Ox 98 10/14/24 18:34 O2 Del Method Room Air 10/14/24 18:34 BMI result Body Mass Index 27.5 Results Results Labs: Short CBC 10/14/24 Range/Units 11:38 WBC 5.9 (4.8-10.8) X10*3/uL Hgb 11.2 L (12.0-16.0) g/dl Hct 33.7 L (37.0-47.0) % Plt Count 323 (160-400) X10*3/uL BMP 10/14/24 11:38 Sodium 139 Potassium 4.0 Chloride 107 Carbon Dioxide 23 BUN 10 Creatinine 0.72 Calcium 8.8 Liver Function 10/14/24 Range/Units 11:38 Total Bilirubin 1.0 (0.0-1.0) mg/dL Direct Bilirubin 0.3 (0.0-0.5) mg/dL AST 27 (5-31) U/L ALT 17 (0-31) U/L Alkaline Phosphatase 98 (39-117) U/L Albumin 3.9 (3.5-5.0) g/dL Urine 10/14/24 Range/Units 11:38 Urine Color Yellow Urine Appearance Clear Urine pH 5.5 (5.0-9.0) Ur Specific [place] 1.010 (1.005-1.025) Urine Protein Negative (Neg-Trace) mg/dL Urine Glucose (UA) Negative (Negative) mg/dL Urine Test NEGATIVE (NEGATIVE) Chest x-ray: report reviewed and image reviewed Assessment and Plan (1) Abdominal pain: Qualifiers: Abdominal location: left upper quadrant Qualified Code(s): R10.12 - Left upper quadrant pain Status: Acute 1) May be discharged. Pain is related to a large food bezoar since the patient is not following any recommended meal plan. 2) Stop any food or any other solids 3) Strict liquid diet that can include up to 4 protein shakes per day 4) She must call my office to schedule an appointment. It is absolutely critical that she follows to my office regularly as she has a very complex operation. Plan 1) May be discharged. Pain is related to a large food bezoar since the patient is not following any recommended meal plan. 2) Stop any food or any other solids 3) Strict liquid diet that can include up to 4 protein shakes per day 4) She must call my office to schedule an appointment. It is absolutely critical that she follows to my office regularly as she has a very complex operation. Total time managing care of this patient today: 30 minutes. Quality Stroke Does the patient have a stroke diagnosis?: No VTE Prior VTE?: No VTE Risk Level:: Surgical - low VTE Device Contraindication: N/A - Device Ordered VTE Drug Contraindication: Treatment Not Indicated Procedures Date of Service Date of Service: 10/14/24
[2024-10-14 19:10] VITALS: BP 117/61; PULSE 78; RESP 18; TEMP 36.6; O2SAT 98
== END 2024-10-14 19:15 | disposition home or self-care (01) ==
PROVIDERS: Emergency Medicine; Emergency Provider Emergency Medicine; PCP Internal Medicine
DX: R10.12 Left upper quadrant pain (principal)
CPT/HCPCS: 36415; 74176; 80048; 80076; 81001; 81025; 83690; 85025; 87086; 99284

== ENCOUNTER → 2024-10-14 13:58 | Outpatient (BNV) | payer BC, SELFPAY | PROVIDERS: Emergency Provider Emergency Medicine; PCP Internal Medicine; Visit Provider Radiology Diagnostic Radiology | DX: K57.30 Diverticulosis of large intestine without perforation or abscess without bleeding (principal) | CPT/HCPCS: 74176 ==

== ENCOUNTER → 2024-10-14 14:10 | Outpatient (BNV) | payer BC, SELFPAY | PROVIDERS: Emergency Provider Emergency Medicine; PCP Internal Medicine; Visit Provider Surgery | DX: R10.12 Left upper quadrant pain (principal) | CPT/HCPCS: 99283 ==

== ENCOUNTER 2024-10-16 11:04 | Outpatient (AMB) | payer BC, SELFPAY ==
--- NOTE | 2024-10-16 11:04 | MHC.OFFVISWM ---
Intake Visit Reasons: (TV) PO GBP 12/20/17 Allergies Seasonal Allergies Allergy (Mild, Verified 10/14/24 10:43) per skin testing for allergies-mild symptoms reported Medication List - Last Reconciled 10/16/24 by ISAIAH Carpenter estradiol (Lyllana) 1 patch transdermal 2XW trazodone 50 mg PO BEDTIME HPI Comments Details: This?is a?49?yo F who is s/p RYGB 12/20/2017. She is also s/p panniculectomy 09/2022. Has not followed up in the office since 12/2022. Was in the ER 2 days ago with abdominal pain, question of obstruction at the GJ anastomosis. Prior to ER visit was on vacation in [place], I had a good time, I enjoyed food I don't normally eat. Then returned from [place], went out to dinner and had oysters plus a cup of soup. Started to experience some L sided pain. Thought it might be a kidney infection but ended up having to go to the ER due to increased pain. She was instructed to take liquids only by Dr Billings which she has been doing. Tea, broth, tried Coca-Cola to help break up the mass . No nausea, no vomiting. No changes in stools, having regular bowel movements. No fevers. PFSH Medical History Seasonal allergies History of COVID-19 Surgical History History of Denise-en-Y gastric bypass S/P NILA-BSO (total abdominal hysterectomy and bilateral salpingo-oophorectomy) History of esophagogastroduodenoscopy (EGD) Hx of colonoscopy H/O removal of cyst Hx of section Family History Father Emphysema lung COPD (chronic obstructive pulmonary disease) Mother DM (diabetes mellitus) HTN (hypertension) Glaucoma Brother No problems noted. Brother No problems noted. Brother No problems noted. Son No problems noted. Son No problems noted. Social History Household Members Other:: 2 adult children-ages 19 & 21 Are you a primary child care development specialist to a significant other at home: No Do you presently have visiting nurse or other home services: No Alcohol intake: current Alcohol intake frequency: does not drink Patient Tobacco Use Status: Never used Tobacco Second Hand Smoke Exposure: No Current occupational status: employed Current occupation: [employer] Telehealth Telehealth Telehealth Platform: Telephone Location of provider rendering services: practice address Location of patient: address on file Patient Identification confirmed using: Name, : Yes Telehealth method: voice only Patient verbally consented to treatment: Yes Patient verbally consented to billing insurance company: Yes Patient informed of any privacy concerns related to visit: Yes Minutes spent on Phone/Video with Pt.: 15 Assessment & Plan Assessment & Plan (1) S/P gastric bypass: Comment: Very successful, maintained weight loss Code(s): Z98.84 - Bariatric surgery status Category: Surgical Plan Pt will continue on liquids only for 1 week, until Tuesday. No more Coca Cola. Introduce protein drinks, 3 per day- sent protein water options. Starting on Tuesday may reintroduce one soft meal a day of 4 forks protein- scrambled egg, GY, or CC. Patient agreeable to plan and reports that normally she does follow a consistent meal plan with appropriate portions, however she did not follow this structure while on vacation. She will text me if any issues.
--- OUTSIDE RECORDS SUMMARY | 2024-10-16 12:54 | XMS_ITS | Clinical Summary ---
Author Organization [address] Address [address] [place] [address] Phone Care Team Providers Care Prototype Technician Name Role Phone Samy Burns MD Primary Care Provider [phone] Social History Tobacco Use Types Packs/Day Years Used Date Smoking Tobacco: Never Assessed Comments Unknown Sex and Gender Information Value Date Recorded Sex Assigned at Not on file Legal Sex Female 6:45 PM EST Gender Identity Not on file Sexual Orientation Not on file Plan of Treatment Health Maintenance Due Date Last Done Comments Breast Cancer Screening 1975 DTaP,Tdap,and Td Vaccines (1 - Tdap) 1992 Hepatitis B Vaccines (1 of 3 - 19+ 3-dose series) 1992 Pneumococcal Vaccine: 50+ Ye ars (1 of 1 - PCV) 2023 Zoster Vaccines (1 of 2) 2023 COVID-19 Vaccine ( - 2023-2 5 season) 2024 Colorectal Cancer Screening: Colonoscopy 07/19/2024 Depression Screening 07/19/2024 HIV Screening 07/19/2024 Hepatitis C Screening 07/19/2024 Social Influencers of Health Screening 07/19/2024 Influenza Vaccine (Season Ended) 2025 Cervical Cancer Screening: P ap Smear 06/05/2027 06/05/2024 HIB Vaccines Aged Out No longer eligi ble based on patient's age to complete this topic HPV Vaccines Aged Out No longer eligi ble based on patient's age to complete this topic Hepatitis A Vaccines Aged Out No long er eligible based on patient's age to complete this topic IPV Vaccines Aged Out No longer eligi ble based on patient's age to complete this topic MMR Vaccines Aged Out No longer eligi ble based on patient's age to complete this topic Meningococcal ACWY Vaccine Aged Out N o longer eligible based on patient's age to complete this topic Meningococcal B Vaccine Aged Out No l onger eligible based on patient's age to complete this topic Pneumococcal Vaccine: Pediat rics (0 to 5 Years) and At-Risk Patients (6 to 64 Years) Aged Out No longer eligi ble based on patient's age to complete this topic RSV Immunization Patients Un jhonatan 20 months Aged Out No longer eligible b ased on patient's age to complete this topic Varicella Vaccines Aged Out No longer eligible based on patient's age to complete this topic Procedures Procedure Name Priority Date/Time Associated Diagnosis Comments PAP SMEAR Routine 06/05/2024 12:00 AM EST Encounter for gynecological examination (general) (routine) without abnormal findings from Last 3 Months or Most Recently Relevant to Health Maintenance Results * Pap smear (06/05/2024 12:00 AM EST) Interpretation Negative for intraepithelial lesion or malignancy 06/14/2024 10:[address] [facility] Clinical Information PAP HX of LSIL AND ASCUS 06/14/2024 10:[address] [facility] General Categorization Negative 06/14/2024 10:[address] [facility] Specimen Adequacy Satisfactory for evaluation 06/14/2024 10:[address] [facility] Pap Methodology Liquid Based Pap Test 06/14/2024 10:[address] [facility] Disclaimer The Pap test is a screening test which carries an inherent false negative rate. These test results should be correlated with the patient's clinical findings and history. This Pap test was processed using an automated screening system. Technical cytopathology services provided by [facility], at [address] [place] [address], [place] [address] (CLIA # [id number]/Christine Krause MD, Gum Dipper.) 06/14/2024 10:[address] [facility] Console Pap Interpretation Reported 06/14/2024 10:[address] [facility] Brushing/Spatula Vaginal structure / Unknown 06/05/2024 06/05/2024 3:43 PM EST us Andrei Pierre MD LAB CYTOLOGY ORDERABLES Final Result JOSE TABOR [place] ([facility]) [facility] [address] [place] [address], from Last 3 Months or Most Recently Relevant to Health Maintenance Insurance [facility] Care Teams Prototype Technician Relationship Specialty Start Date End Date Samy Burns MD [address] PCP - General Internal Medicine 07/19/24
--- OUTSIDE RECORDS SUMMARY | 2024-10-16 12:54 | XMS_ITS | Encounter Summary ---
Author Organization [facility] Address [address] [place] [address] Care Team Providers Care Shrink Pit Supervisor Name Role Phone Samy Burns MD Primary Care Provider [phone] Encounter Details Date Type Department Care Team (Latest Contact Info) Description 06/05/2024 Lab Requisition [facility] - Main Lab [address] [place] [address] Andrei Pierre MD [address] [id number] Encounter for gynecological examination (general) (routine) without abnormal findings Social History Tobacco Use Types Packs/Day Years Used Date Smoking Tobacco: Never Assessed Comments Unknown Sex and Gender Information Value Date Recorded Sex Assigned at Not on file Legal Sex Female 6:45 PM EST Gender Identity Not on file Sexual Orientation Not on file documented as of this encounter Plan of Treatment Not on file documented as of this encounter Procedures Procedure Name Priority Date/Time Associated Diagnosis Comments PAP SMEAR Routine 06/05/2024 12:00 AM EST Encounter for gynecological examination (general) (routine) without abnormal findings documented in this encounter Results * Pap smear (06/05/2024 12:00 AM EST) Interpretation Negative for intraepithelial lesion or malignancy 06/14/2024 10:11 AM [facility] Clinical Information PAP HX of LSIL AND ASCUS 06/14/2024 10:11 AM [facility] General Categorization Negative 06/14/2024 10:11 AM [facility] Specimen Adequacy Satisfactory for evaluation 06/14/2024 10:11 AM [facility] Pap Methodology Liquid Based Pap Test 06/14/2024 10:11 AM [facility] Disclaimer The Pap test is a screening test which carries an inherent false negative rate. These test results should be correlated with the patient's clinical findings and history. This Pap test was processed using an automated screening system. Technical cytopathology services provided by [facility], at [address] [place] [address] (CLIA # [id number]/Christine Krause MD, Director Script.) 06/14/2024 10:11 AM [facility] Console Pap Interpretation Reported 06/14/2024 10:11 AM [facility] Brushing/Spatula Vaginal structure / Unknown 06/05/2024 06/05/2024 3:43 PM EST us Andrei Pierre MD LAB CYTOLOGY ORDERABLES Final Result [facility] [address] [place] [address], documented in this encounter Visit Diagnoses Diagnosis Encounter for gynecological examination (general) (routine) without abnormal findings documented in this encounter Care Teams Shrink Pit Supervisor Relationship Specialty Start Date End Date Samy Burns MD [address] PCP - General Internal Medicine 07/19/24 documented as of this encounter
== END 2024-10-16 11:30 | disposition home or self-care (01) ==
LOC: HO.HBS 11:04
PROVIDERS: PCP Internal Medicine; Visit Provider Physician Assistant Surgical
DX: R10.13 Epigastric pain (principal); Z98.84 Bariatric surgery status
CPT/HCPCS: 98967

== ENCOUNTER → 2024-10-16 11:04 | Outpatient (BNVA) | payer BC, SELFPAY | PROVIDERS: PCP Internal Medicine; Visit Provider Physician Assistant Surgical | DX: Z98.84 Bariatric surgery status (principal) | CPT/HCPCS: 98967 ==

== ENCOUNTER 2024-10-22 08:29 | Day surgery (SDC) | payer BC, SELFPAY ==
--- NOTE | 2024-10-18 12:16 | P.CONAN_ITS ---
Documented by User: Karen Pitts NP 10/18/24 12:16 HPI - Anesthesia Eval Consult details Narrative: 49yo F for Upper Endoscopy PMFSH Active Problems Active Problems: All Active Problems Encounter for screening colonoscopy (Acute) S/P panniculectomy (Acute) S/P gastric bypass (Acute) Excess skin (Acute) Intestinal malabsorption (Acute) Panniculitis (Acute) Past Medical History Medical History Seasonal allergies History of COVID-19 Family History Family History Father Emphysema lung COPD (chronic obstructive pulmonary disease) Mother DM (diabetes mellitus) HTN (hypertension) Glaucoma Brother No problems noted. Brother No problems noted. Brother No problems noted. Son No problems noted. Son No problems noted. Surgical History Surgical History History of Denise-en-Y gastric bypass S/P NILA-BSO (total abdominal hysterectomy and bilateral salpingo-oophorectomy) History of esophagogastroduodenoscopy (EGD) Hx of colonoscopy H/O removal of cyst Hx of section History of Problems with Anesthesia: No Social History Social History Household Members Other:: 2 adult children-ages 19 & 21 Are you a primary day care home mother to a significant other at home: No Do you presently have visiting nurse or other home services: No Alcohol intake: current Alcohol intake frequency: does not drink Patient Tobacco Use Status: Never used Tobacco Second Hand Smoke Exposure: No Advance Directives: No Advance Directives Information Provided: Yes Current occupational status: employed Current occupation: [employer] Meds Allergies Allergy/AdvReac Type Severity Reaction Status Date / Time Seasonal Allergies Allergy Mild per skin Verified 10/14/24 10:43 testing for allergies-mild symptoms reported Home Medications ?Medication ?Instructions ?Recorded ?Confirmed ?Last Taken ?Type estradiol 0.025 mg/24 hr 1 patch transdermal 2XW 06/15/22 10/22/24 Unknown History semiweekly transdermal patch (Lyllana) trazodone 50 mg tablet 50 mg PO BEDTIME 06/15/22 10/22/24 Unknown History Assessment and Plan Assessment Anesthesia Assessment: Chart Reviewed Final Anesthetic Review History of Problems with Anesthesia: No Documented by User: Jeannie Red MD 10/22/24 09:11 [facility] Past Medical History Medical History Seasonal allergies History of COVID-19 Family History Family History Father Emphysema lung COPD (chronic obstructive pulmonary disease) Mother DM (diabetes mellitus) HTN (hypertension) Glaucoma Brother No problems noted. Brother No problems noted. Brother No problems noted. Son No problems noted. Son No problems noted. Surgical History Surgical History History of Denise-en-Y gastric bypass S/P NILA-BSO (total abdominal hysterectomy and bilateral salpingo-oophorectomy) History of esophagogastroduodenoscopy (EGD) Hx of colonoscopy H/O removal of cyst Hx of section Social History Social History Household Members Other:: 2 adult children-ages 19 & 21 Are you a primary day care home mother to a significant other at home: No Do you presently have visiting nurse or other home services: No Alcohol intake: current Alcohol intake frequency: does not drink Patient Tobacco Use Status: Never used Tobacco Second Hand Smoke Exposure: No Advance Directives: No Advance Directives Information Provided: Yes Current occupational status: employed Current occupation: [employer] Allergies Allergy/AdvReac Type Severity Reaction Status Date / Time Seasonal Allergies Allergy Mild per skin Verified 10/14/24 10:43 testing for allergies-mild symptoms reported Home Medications ?Medication ?Instructions ?Recorded ?Confirmed ?Last Taken ?Type estradiol 0.025 mg/24 hr 1 patch transdermal 2XW 06/15/22 10/22/24 Unknown History semiweekly transdermal patch (Lyllana) trazodone 50 mg tablet 50 mg PO BEDTIME 06/15/22 10/22/24 Unknown History Exam Airway Mallampati Class: II TM Dist: >3cm Neck ROM: Full Loose/Missing/Broken Teeth: No Heart: RRR Lungs: CTA Assessment and Plan Assessment Anesthesia Assessment: Anesthesia Plan Discussed Final Anesthetic Review NPO: Yes ASA Class: II Final Preanesthetic Review: Meds/Allgs Chart Reviewed, Consent Obtained/Reviewed and Anes Risks/Benef Reviewed Patient Risk: Low Procedure Risk: Intermediate Anesthetic Plan Anesthetic Plan: MAC: Disposition: Standard PACU
--- OUTSIDE RECORDS SUMMARY | 2024-10-18 13:04 | XMS_ITS | Clinical Summary ---
Author Organization [address] Address [address] [place] [address] Phone Care Team Providers Care Emergency Medicine Physician Name Role Phone Samy Burns MD Primary Care Provider [phone] Social History Tobacco Use Types Packs/Day Years [...] screening system. Technical cytopathology services provided by [facility], at [address] [place] [address], [place] [address] (CLIA # [id number]/Christine Krause MD, Barrel Roller Operator.) 06/14/2024 10:[address] [facility] Console Pap Interpretation Reported 06/14/2024 10:[address] [facility] Brushing/Spatula Vaginal structure / Unknown 06/05/2024 06/05/2024 3:43 PM EST us Andrei Pierre MD LAB CYTOLOGY ORDERABLES Final Result JOSE TABOR [place] ([facility]) [facility] [address] [place] [address], from Last 3 Months or Most Recently Relevant to Health Maintenance Insurance [facility] Care Teams Emergency Medicine Physician Relationship Specialty Start Date End Date Samy Burns MD [address] PCP - General Internal Medicine 07/19/24
[2024-10-22 08:36] VITALS: BMI 27.0
[2024-10-22 09:00] VITALS: BP 125/83; PULSE 68; RESP 14; TEMP 36.4; O2SAT 99
--- NOTE | 2024-10-22 09:08 | MHC.SHP ---
Pre-Procedural Eval Section A - 24 Hr Update-Section A only Date of Service: 10/22/24 The patient is an INPATIENT: No The patient has been examined within 24 hours of the surgical procedure. The History & Physical has been completed within 30 days and I have reviewed it.: Yes Section B - Complete if H&P > 30 days Chief Complaint: Bariatric surgery status Details of Present Illness: Abdominal pain Relevant Family History (Specify if Yes): No Relevant Social History: None Present Medications: None Medical History: No relevant PMH History of Previous Operations: Relevant previous surgery/procedure and date(s) (Laparoscopic gastric bypass) Allergies: Allergies Allergy/AdvReac Type Severity Reaction Status Date / Time Seasonal Allergies Allergy Mild per skin Verified 10/14/24 10:43 testing for allergies-mild symptoms reported Review of Systems Sugical H&P ROS: Negative: Constitution, Cardiovascular, Respiratory, Neurological, Psychiatric, Hem-Onc, Allergic/Immunologic, Gastrointestinal, Genitourinary, Musculoskeletal, Integumentary, Endocrine and Eyes/Ears/Nose/Throat Exam Surgical H&P Exam: Normal: HEENT, Normal: Heart, Normal: Lungs, Normal: Extremities, Normal: Abdomen, Normal: Skin and Normal: Neurological Plan Diagnosis/Plan: Unchanged (EGD to assess etiology of abdominal pain given her gastric bypass history. Risks of bleeding and perforation were discussed with the patient and she is in agreement with the plan.) I have reviewed the history and physical and performed a pertinent physical examination on my patient. No changes have occurred unless specified. Time Spent With Patient Time: Total time managing care of this patient today ____ minutes.
[2024-10-22] MEDS: Lactated Ringers 1,000 ML 80 ML IVCONT (09:09)
--- NOTE | 2024-10-22 09:14 | P.BOP_ITS ---
Brief Operative Note Date of Service: 10/22/24 Pre-op diagnosis: Abdominal pain, s/p gastric bypass Post-op diagnosis: same Procedure: PROCEDURE DATE: ?07/05/2019 PREOPERATIVE DIAGNOSIS: GERD, s/p gastric bypass POSTOPERATIVE DIAGNOSIS: ?Same as above. Normal post bypass endoscopy PROCEDURE: Maqsfsyv-kbcidu-npxepoyypos with biopsies Surgeon: ?Zac Hubbard M.D.. Ph.D. Industrial Education Instructor: ?None ? Anesthesia: IV sedation Estimated blood loss: ?Minimal FINDINGS AND PROCEDURE: ? OPERATIVE INDICATIONS: ?The patient is a 49 year old male known to me who underwent a laparoscopic gastric bypass by me. The patient had good weight loss so far and felt well. Recently she was on vacation and did not follow a proper meal plan. She developed left upper quadrant abdominal pain and came to the ER. CT of the abdomen showed a distended gastric pouch full of food material.?The patient was placed on liquid diet but she continues to have abdominal pain. Based on this information I recommended an upper endoscopy to evaluate the patient's symptoms.? Risks and complications of the surgery were discussed with the patient in advance particularly the possibility of perforation or bleeding that may require surgical intervention. The patient understood the risks and was in agreement with the plan. ? PROCEDURE: After informed consent was obtained by the patient, the patient was ?transferred to the Operating Room and was placed in the supine position.? After successful induction of IV sedation, a mouth block was placed and the patient was placed in the left lateral decubitus position. An upper endoscopy was performed next, the oropharynx and esophagus appeared within the normal limits. There was no hiatal hernia.? The z-line was smooth. The small pouch was entered, appeared to be of normal size. There was no gastritis and the gastrojejunostomy was patent. There was no anastomotic ulcer except for some mild erythema at the proximal Denise limb.? At that point the scope was advanced into the proximal small intestine (proximal Denise limb) all the way to the maximum length of the scope 1.05 meters from incisors, which appeared to be normal as well. The Denise limb and the pouch were decompressed and the scope was withdrawn from the patient's mouth. No biopsies were obtained. The patient was awaken and was transferred in stable condition to the Recovery Room for further care. I was present and performed all steps of the procedure. There were no residents to assist with this case. Zac Hubbard M.D., Ph.D. Surgeon: Jimmy Hubbard MD Anesthesia: MAC Was an Industrial Education Instructor used for this Procedure?: No Estimated blood loss (mL): 0 IV fluids (mL): 400 Urine output (mL): 0 (No Elias to record output) Pathology: none sent Condition: stable Disposition: PACU
[2024-10-22 09:28] VITALS: BP 100/64; PULSE 65; RESP 18; TEMP 36.3; O2SAT 100
[2024-10-22 09:44] VITALS: BP 99/63; PULSE 68; RESP 18; TEMP 36.3; O2SAT 99
== END 2024-10-22 10:13 | disposition home or self-care (01) ==
PROVIDERS: PCP Internal Medicine; Visit Provider Surgery
PROC: 0DJ08ZZ Inspection of Upper Intestinal Tract, Via Natural or Artificial Opening Endoscopic (ICD-10-PCS; CPT 43235; principal; 2024-10-22 10:10)
DX: R10.12 Left upper quadrant pain (principal); Z98.84 Bariatric surgery status; K31.0 Acute dilatation of stomach; K21.9 Gastro-esophageal reflux disease without esophagitis; J30.2 Other seasonal allergic rhinitis; Z79.899 Other long term (current) drug therapy
CPT/HCPCS: 43239; J2003; J2704

== ENCOUNTER → 2024-10-22 08:29 | Outpatient (BNV) | payer BC, SELFPAY | PROVIDERS: PCP Internal Medicine; Visit Provider Surgery | DX: K21.9 Gastro-esophageal reflux disease without esophagitis (principal); Z98.84 Bariatric surgery status | CPT/HCPCS: 43235 ==

== ENCOUNTER 2025-01-10 10:40 | Outpatient (REF) | payer BC, SELFPAY ==
[2025-01-10 11:15] LABS: Appearance Urine Cloudy; Glucose Urine UA Negative (Negative); PH 6.0 (5.0-9.0); Specific Gravity - Urine 1.015 (1.005-1.025); UMIC TRIGGER UACC YES
[2025-01-10 11:18] LABS: UACC Culture Trigger YES
--- OUTSIDE RECORDS SUMMARY | 2025-01-10 11:33 | XMS_ITS | Patient Health Record ---
Author Organization Brian Burns MD Address [address] [place] [phone] Care Team Providers Care Seafood Packer Name Role Phone Brian Burns Primary Care Provider Allergies No Known Allergies Results Component Value Reference Range Notes Complete Blood Count Auto Di ff Reviewed date:06/29/2024 05:37:31 PM Interpretation: Performing Lab:[facility], [address] [place] [phone] Notes/Report: White Blood Count 6.8 4.8-10.8 X10*3/uL [...] 0.0-0.2 /100WBC Neutrophils Absolute Auto 3.9 2.0-8.3 x10*3/uL Imm Gran Abs Auto 0.02 0.00-0.03 X10*3/uL Lymphocytes Absolute Auto 2.2 1.2-4.9 X10*3/uL Monocytes Absolute Auto 0.6 0.1-1.2 X10*3/uL Eosinophils Absolute Auto 0.1 0.0-0.4 X10*3/uL Basophils Absolute Auto 0.1 0.0-0.2 X10*3/uL NRBC Abs Auto 0.000 0.0-0.012 X10*3/uL Comprehensive [place]. Panel Fa st Reviewed date:06/29/2024 05:27:44 PM Interpretation: Performing Lab:[facility], [address] [place] [phone] Notes/Report: Sodium 139 135-145 mmol/L Potassium 3.7 [...] Panel Reviewed date:06/29/2024 05:14:41 PM Interpretation: Performing Lab:[address] [phone] Notes/Report: Triglycerides 103 <150 mg/dL Desirable Triglyceride: [...] t Reviewed date:06/29/2024 05:14:07 PM Interpretation: Performing Lab:[address] [phone] Notes/Report: Urine, Clean Catch Color Urine Yellow Appearance Urine Clear PH 5.5 5.0-9.0 Glucose Urine UA Negative Negative mg/dL Urine Blood Negative Negative Specific [place] - Urine 1.020 1.005-1.025 Urine Protein Negative Neg-Trace mg/dL Urine Ketones Negative Negative mg/dL Nitrite Urine Positive Negative Leukocyte Esterase Urine Moderate (2+) Negative RBC Urine 0-2 0-2 /HPF WBC Urine >50 0-5 /HPF Squamous Epithelial Cell Urine 6-10 0-2 /HPF Bacteria Urine 4+ None Seen Hyaline Casts Urine 0-2 0-2 /LPF UA ClnCatch+Micro w/rflx Cul t (Not yet reviewed by provider) Interpretation: Performing Lab:[facility], [address] [place] [phone] Notes/Report: Urine, Clean Catch Color Urine Yellow Appearance Urine Cloudy PH 6.0 5.0-9.0 Glucose Urine UA Negative Negative mg/dL Urine Blood Trace Negative Specific [place] - Urine 1.015 1.005-1.025 Urine Protein Trace Neg-Trace mg/dL Urine Ketones Negative Negative mg/dL Nitrite Urine Positive Negative Leukocyte Esterase Urine Large (3+) Negative RBC Urine 0-2 0-2 /HPF WBC Urine >50 0-5 /HPF Squamous Epithelial Cell Urine 0-2 0-2 /HPF Bacteria Urine 4+ None Seen Hyaline Casts Urine 3-5 0-2 /LPF Pathology Reviewed date:05/07/2024 04:50:26 PM Interpretation: Performing Lab:[facility], [address] [place] [phone] Notes/Report: ---- Name: Kim Garcia Age/Sex: 48/F : 1975 Unit#: [id number] Attend Dr: Chapito Serrano MD Re05/04/24 Status : [facility] Location: [facility] Disch: ---- SPEC : [id number] RECD : 05/04/24-831 STATUS: TERESA DRAKE NUM: [id number] XAVIER: 05/04/24-[address]: Chapito Serrano MD ENTERED: 05/04/24-14 16 SP TYPE: Surgical OTHR DR: Brian Burns MD ORDERED: HE Stain/9, Gross Micro L4/3 Diagnosis A. Colon, right, bio psy: Colonic mucosa within normal limits; negative for microscopic colitis. B. Colon, left, biop sy: Colonic mucosa within normal limits; negative for microscopic colitis. C. Rectum, polypecto my: Hyperplastic mucosal polyp. Clinical History Pre-Op Dx: Screening Post-Op Dx: Polyp, diverticulosis Microscopic Description A-C. Microscopic sections reviewed. Material Received A. Right colon bx's, r/o microscopic colitis B. Left colon bx's, r/o microscopic colitis C. Rectal polyp Gross Description Received in three parts. Part A: Received in formalin labeled ?right colon bx, rule out microscopic colitis? are 3 newsome irregular tissue fragments ranging from 0.1-0.2 cm, submitted in toto in a cassette labeled A. Part B: Received in formalin labeled ?left colon bx's, rule out microscopic colitis? are 2 [place]-pink irregular tissue fragments each measuring 0.2 cm, submitted in toto in a cassette labeled B. Part C: Received in formalin labeled ?rectal polyp? is a 0.3 cm newsome-pink irregular tissue fragments, submitted in toto in a cassette labeled C. CEDS CONTINUED ON NEXT PAGE ---- Name: Kim Garcia Age/Sex: 48/F : 1975 Unit#: [id number] Attend Dr: Chapito Serrano MD Re05/04/24 Status : [facility] Location: [facility] Disch: ---- SPEC : [id number] REC STATUS: TERESA DRAKE NUM: [id number] XAVIER: 05/04/[address] [facility] [address]: Chapito Serrano MD ENTERED: 05/04/24-14 16 SP TYPE: Surgical OTHR DR: Brian Burns MD ORDERED: HE Stain/9, Gross Micro L4/3 Copies To: Brian Burns MD [facility] [address] [address] Chapito Serrano MD [facility] [address] [place] [address] ---- Signed (signature on file) Andrei Ford MD 05/07/24 1425 ---- END OF REPORT Urine Culture Reviewed date:07/05/2024 01:06:55 PM Interpretation: Performing Lab:[facility], [address] [place] [phone] Notes/Report: O:ESCCOL Escherichia coli Urine Culture Quant Urine Culture > 100,000 cfu/mL Ampicillin 4 Cefazolin <=1 Cefepime <=0.12 Ceftriaxone <=0.25 Ciprofloxacin <=0.06 Gentamicin <=1 Nitrofurantoin <=16 Trimethoprim/Sulfamethox azole <=20 Complete Blood Count Auto Di ff Reviewed date:10/14/2024 01:55:59 PM Interpretation: Performing Lab:[facility], [address] [place] [phone] Notes/Report: White Blood Count 5.9 4.8-10.8 X10*3/uL Red Blood Count 3.79 4.20-5.50 X10*6/uL Hemoglobin 11.2 12.0-16.0 g/dl Hematocrit 33.7 37.0-47.0 % Mean Corpuscular Volume 88.9 80.0-98.0 fL Mean Corpuscular Hemoglobin 29.6 27.0-33.0 pg Mean Corpuscular HGB Conc 33.2 31.0-35.0 g/dl Red Cell Distribution Width 13.6 11.0-16.0 % Platelet Count 323 160-400 X10*3/uL Mean Platelet Volume 8.7 9.4-12.3 fL Neutrophils Percent Auto 60.6 45-73 % Imm Gran Pct Auto 0.2 0.0-0.4 % Lymphocytes Percent Auto 29.9 20-40 % Monocytes Percent Auto 7.7 2-11 % Eosinophils Percent Auto 0.7 0-4 % Basophils Percent Auto 0.9 0-2 % NRBC Pct Auto 0.0 0.0-0.2 /100WBC Neutrophils Absolute Auto 3.6 2.0-8.3 x10*3/uL Imm Gran Abs Auto 0.01 0.00-0.03 X10*3/uL Lymphocytes Absolute Auto 1.8 1.2-4.9 X10*3/uL Monocytes Absolute Auto 0.5 0.1-1.2 X10*3/uL Eosinophils Absolute Auto 0.0 0.0-0.4 X10*3/uL Basophils Absolute Auto 0.1 0.0-0.2 X10*3/uL NRBC Abs Auto 0.000 0.0-0.012 X10*3/uL Ur Preg Test Reviewed date:10/14/2024 01:55:01 PM Interpretation: Performing Lab:[address] [phone] Notes/Report: Urine NEGATIVE NEGATIVE This test was developed to detect early . False negative results may occur after the 5th - 7th week of when using this test method. If clinically indicated, consider a serum hCG. Liver Panel Reviewed date:10/14/2024 01:55:11 PM Interpretation: Performing Lab:[facility], [address] [place] [phone] Notes/Report: Bilirubin Total 1.0 0.0-1.0 mg/dL Bilirubin Direct 0.3 0.0-0.5 mg/dL Aspartate Amino Transferase 27 5-31 U/L Slight Hemolysis.Interpret result with caution. Alanine Aminotransferase 17 0-31 U/L Total Protein 7.1 6.5-8.0 g/dL Albumin Level 3.9 3.5-5.0 g/dL Alkaline Phosphatase 98 39-117 U/L Basic Metabolic Panel Reviewed date:10/14/2024 01:54:44 PM Interpretation: Performing Lab:[facility], [address] [place] [phone] Notes/Report: Sodium 139 135-145 mmol/L Potassium 4.0 3.3-5.1 mmol/L Slight Hemolysis.Interpret result with caution. Chloride 107 96-108 mmol/L Carbon Dioxide 23 22-29 mmol/L Anion Gap 13 12-20 Blood Urea Nitrogen 10 9-16 mg/dL Creatinine 0.72 0.5-1.4 mg/dL Creatinine Clr Calc Pharmacy 90.2 Provided height and weight: 162.56 cm, 72.575 kg. eGFR (calculated from the MDRD study equation) and eCrCl (calculated from the Cockcroft-Gault equation) are based on different parameters and may not yield comparable results. If eCrCl result is absurd, please check patient's height/weight. Estimated Glomerular Filt Rate > 60 Chronic Kidney Disease: Estimated GFR < 60 mL/min/1.73m2 Severe Kidney Disease: Estimated GFR < 15 mL/min/1.73m2 Glucose Random 93 60-115 mg/dL Calcium 8.8 8.4-10.2 mg/dL Lipase Reviewed date:10/14/2024 01:54:25 PM Interpretation: Performing Lab:[facility], [address] [place] [phone] Notes/Report: Lipase 47 8-78 U/L Urine Culture Reviewed date:10/15/2024 12:48:32 PM Interpretation: Performing Lab:[facility], [address] [place] [phone] Notes/Report: Urine Culture No growth. UA ClnCatch+Micro w/rflx Cul t Reviewed date:10/14/2024 01:55:28 PM Interpretation: Performing Lab:[facility], [address] [place] [phone] Notes/Report: [id number] Urine, Clean Catch Color Urine Yellow Appearance Urine Clear PH 5.5 5.0-9.0 Glucose Urine UA Negative Negative mg/dL Urine Blood Negative Negative Specific [place] - Urine 1.010 1.005-1.025 Urine Protein Negative Neg-Trace mg/dL Urine Ketones Negative Negative mg/dL Nitrite Urine Negative Negative Leukocyte Esterase Urine Small (1+) Negative RBC Urine 0-2 0-2 /HPF WBC Urine 6-10 0-5 /HPF Squamous Epithelial Cell Urine 3-5 0-2 /HPF Bacteria Urine None Seen None Seen Hyaline Casts Urine 0-2 0-2 /LPF CT abdomen pelvis wo con Reviewed date:10/15/2024 10:00:52 AM Interpretation: Performing Lab: Notes/Report: [address] [address] [address] Scan Report Signed Patient: Kim Garcia MR#: [id number] : 1975 Acct:[id number] Age/Sex: 49 / F ADM Date: 10/14/24 Loc: HO.ED Attending Dr: Ordering Physician: Zakiya Kelly MD Date of Service: 10/14/24 Procedure(s): CT abdomen pelvis wo IV con Accession Number(s): [id number] cc: Brian Burns MD; Zakiya Kelly MD Report Number: [id number]: Total DLP = 554.00 mGy-cm CLINICAL HISTORY: Left side abdominal left flank pain CT abdomen and pelvis without IV contrast. COMPARISON: None FINDINGS: Small hiatal hernia. Normal gallbladder. Noncontrast appearance of the liver, spleen, pancreas and adrenal glands are unremarkable. No renal or ureteral calculus bilaterally. No hydronephrosis. Status post gastric bypass. Gastric remnant is mildly distended with what appears to be fecalized material. Alimentary limb is contracted. Mild colonic stool burden. Mild distal colonic diverticulosis without evidence of diverticulitis. No mesenteric or retroperitoneal lymphadenopathy. Normal abdominal aorta. Normal appearance of the urinary bladder. No adnexal mass. Small fat containing umbilical hernia. No acute fracture or suspicious bone lesion. IMPRESSION: 1. No evidence of renal obstruction. No renal or ureteral calculus bilaterally. 2. Mild distention of the gastric remnant with contracted alimentary limb. A component of obstruction at the anastomosis may be present. 3. Colonic diverticulosis without evidence of diverticulitis. This document has been electronically signed by: Ian Boinlla MD on 10/14/2024 14:58:42 Dictated By: Ian Bonilla MD Signed By: <Electronically signed by Ian Bonilla MD in OV> 10/14/24 1459 DD/ 1458 TD/TT: 10/14/24 1458 Curator Of Education: [place] [address] CT Scan Report Signed Patient: Tila Garcia MR#: [id number] : 1975 Acct:[id number] Age/Sex: 49 / F ADM Date: 10/14/24 Loc: HO.ED Attending Dr: Ordering Physician: Zakiya Kelly MD Date of Service: 10/14/24 Procedure(s): CT abd omen pelvis wo IV con Accession Number(s): [id number] cc: Brian Burns MD; Zakiya Kelly MD Report Number: [id number]: Total DLP = 554.00 mGy-cm CLINICAL HISTORY: Le ft side abdominal left flank pain CT abdomen and pelvi s without IV contrast. COMPARISON: None FINDINGS: Small hiatal hernia. Normal gallbladder. Noncontrast appearance of the liver, spleen, pancreas and adrenal glands a re unremarkable. No renal or ureteral calculus bilaterally. No hydronephrosis. Status post gastric bypass. Gastric remnant is mildly distended with what appears to be fecali zed material. Alimentary limb is contracted. Mild colonic stool burden . Mild distal colonic diverticulosis without evidence of diverticulitis. No mesenteric or retroperitoneal lymphadenopathy. Normal abdominal aorta. Normal appearance of the urinary bladder. No adnexal mass. Small fat containing umbilical hernia. No acute fracture or suspicious bone lesion. IMPRESSION: 1. No evidence of re nal obstruction. No renal or ureteral calculus bilaterally. 2. Mild distention o f the gastric remnant with contracted alimentary limb. A component of obstruction at the anastomosis may be present. 3. Colonic diverticulosis without evidence of diverticulitis. This document has be en electronically signed by: Ian Bonilla MD on 10/14/2024 14:58:42 Dictated By: Arian Bonilla MD Signed By: <Electronically signed by Ian Bonilla MD in OV> 10/14/24 1459 DD/ 1458 TD/TT: 10/14/24 1458 Curator Of Education: Reason For Referral No Information Medications Medication SIG (Take, Route, Frequency, Duration) Notes Start Date End Date Status Propranolol HCl 20 MG 1 tablet Orally Tw ice a day Not-Taking Ibuprofen 800 MG 1 tablet Orally Thre e times a day for 30 day(s) 07/06/2016 Not-Taking traZODone HCl 50 MG TAKE 2 TABLETS BY [facility] EVERY DAY AT BEDTIME NEEDED Orally Once a day for 30 days Active Cephalexin 500 MG 1 capsule Orally twi ce a day for 7 days 07/02/2024 Not-Taking Fioricet 50-300-40 MG 1 capsule as neede d Orally every 4 hrs Not-Taking Pantoprazole Sodium 40 MG 1 tablet Orall y Once a day Not-Taking Estradiol 0.0375 MG/24HR ARMIDA 1 PA EXT TO THE SKIN 2 TIMES A WK Transdermal for 90 Active Immunizations Vaccine Route Administration Date Status Comme nts [...] Administered Fluarix Quadrivalent IM Intramuscular 04/07/2021 Administe red SARS-COV-2 Pfizer Unknown 05/06/2021 Administered Fluarix Quadrivalent Unknown 04/11/2022 Administered Fluarix Quadrivalent Unknown 04/15/2023 Administered Flu Vaccine Unknown 04/11/2015 Refused Flu Vaccine Unknown 03/08/2014 Pending Social History Tobacco Use: Social History Observation [...] Never (0 point) Points 1 Interpretation Negative Problems Problem Type SNOMED Code ICD Code Onset Dates Problem Status W/U Status Risk Notes Problem 1623231 Primary insomnia (F51.01) Active confirmed Problem 412048896 Endometriosis of pelvic peritoneum (N80.3) Active confirmed Problem Lumbar disc disease (M51.9) Active confirmed Problem 171403154 Non morbid obesi ty due to excess calories (E66.09) Active confirmed Problem 358937582 Asthmatic bronchitis, mild intermittent, uncomplicated (J45.20) Active confirmed Problem 502499396 Tension headache (G44.209) Active confirmed Problem 74459179 Dysthymia (F34.1) Active confirmed Problem 659636128 Panic attacks (F41.0) Active confirmed Problem 446410442 Migraine without aura and with status migrainosus, not intractable (G43.001) Active confirmed Problem 932697798 Bruxism (F45.8) Active confirmed Problem 719632044 History of solitary pulmonary nodule (Z87.898) Active confirmed Problem 12528295 Duodenitis (K29.80) Active confirmed Problem 32419344 Other and unspecified ovarian cyst (N83.209) Active confirmed Problem 604997999 Recurrent sinusitis (J32.9) Active confirmed Vital Signs Blood pressure diastolic 62 mm Hg 01/08/2025 Height 64 in 01/08/2025 Blood pressure systolic 94 mm Hg 01/08/2025 Weight 162 lbs 01/08/2025 BMI 27.8 kg/m2 01/08/2025 Procedures Procedure Date Ordered Date Performed Result Body Sit e Colonoscopy, Screening 05/04/2024 05/04/2024 repea t colonoscopy pending path Encounters Encounter Location Date Provider Diagnosis Brian Burns MD [address] [place] [id number] 06/29/2024 Brian Burns Blood tests for routine general physical examination Z00.00 Brian Burns MD [address] [place] [address] [address] [place] [id number] 01/08/2025 Brian Burns Primary insomnia F51.01 and Cerumen impaction H61.20 Brian Burns MD [address] [place] [id number] 01/10/2025 Brian Burns UTI (urinary tract infection) N39.0 Brian Burns MD [address] [place] [id number] 07/17/2024 Brian Burns Unintended weight gain R63.5 ; Annual physical exam Z00.00 ; Closed fracture of one rib of left side, initial encounter S22.32XA ; Primary insomnia F51.01 and Depression screening Z13.31 Brian Burns MD [address] [place] [id number] 07/02/2024 Brian Burns MD [address] [place] [address] Drive [address] [place] [id number] 09/25/2024 Brian Burns Primary insomnia F51.01 Brian Burns MD [address] [place] [address] Drive [address] [place] [id number] 10/15/2024 Brian Burns Assessments Encounter Date Diagnosis (ICD Code) Assessment Notes Treatment Notes Treatment Clinical Notes Section Notes 06/29/2024 Blood tests for routine general physical examination (ICD-10 - Z00.00) 01/08/2025 Primary insomnia (ICD-10 - F51.01) 01/08/2025 Cerumen impaction (ICD-10 - H61.20) 01/10/2025 UTI (urinary tract infection) (ICD-10 - N39.0) 07/17/2024 Unintended weight gain (ICD-10 - R63.5) spoke about diet and exercise 07/17/2024 Annual physical exam (ICD-10 - Z00.00) healthy, labs reviewed and discussed with patient 09/25/2024 Primary insomnia (ICD-10 - F51.01) 07/17/2024 Closed fracture of one rib of left side, initial encounter (ICD-10 - S22.32XA) no treatment except time 07/17/2024 Primary insomnia (ICD-10 - F51.01) stable, will contonue current regiment 07/17/2024 Depression screening (ICD-10 - Z13.31) negative screen Plan Of Treatment Pending Test Test Name Order Date CT CHEST WITH CONTRAST 02/05/2014 UA ClnCatch+Micro w/rflx Cult 01/10/2025 Future Test Test Name Order Date US PELVIS 11/19/2016 Next Appt Details Provider Name:Brian Zabrina Armin ier, 07/12/2025 07:00:00 AM, [address] [place] [address], [address], [place], [place], [phone], Provider Name:Brian Gerber Ludintoni ier, 07/19/2025 08:00:00 AM, [address], [address], [place], [place], [phone], Insurance Providers Payer Name Payer Address Payer Phone Subscriber Number Group Number Insured Name Patient Relationship to Insured Coverage Start Date Coverage End Date [facility] [address] [place], [place] [phone] [id number] Kim Garcia Self - patient is the insured Medical (General) History Medical History History ICD Code Colonoscopy - 05/25/12. colonoscopy 05/04 repeat /10y liver mri 2013 was just hemangioma lung [...]
--- OUTSIDE RECORDS SUMMARY | 2025-01-10 11:33 | XMS_ITS | Encounter Summary ---
Author Organization [facility] Address [address] [place] [address] Care Team Providers Care Eligibility Supervisor Name Role Phone Samy Burns MD Primary Care Provider [phone] Encounter Details Date Type Department Care Team (Latest Contact Info) Description 06/05/2024 Lab Requisition [facility] - Main Lab [address] [place] [address] Andrei Pierre MD [address] [phone] Encounter for gynecological examination (general) (routine) without [...] intraepithelial lesion or malignancy 06/14/2024 10:11 AM [facility] Clinical Information PAP HX of LSIL AND ASCUS 06/14/2024 10:11 AM [facility] General Categorization Negative 06/14/2024 10:11 AM [facility] Specimen Adequacy Satisfactory for evaluation 06/14/2024 10:11 AM [facility] Pap Methodology Liquid Based Pap Test 06/14/2024 10:11 AM [facility] Disclaimer The Pap test is a screening test which carries an inherent false negative rate. These test results should be correlated with the patient's clinical findings and history. This Pap test was processed using an automated screening system. Technical cytopathology services provided by [facility], at [address] [place] [address] (CLIA # [id number]/Christine Krause MD, Byproducts Extractor.) 06/14/2024 10:11 AM [facility] Console Pap Interpretation Reported 06/14/2024 10:11 AM [facility] Brushing/Spatula Vaginal structure / Unknown 06/05/2024 06/05/2024 3:43 PM EST us Andrei Pierre MD LAB CYTOLOGY ORDERABLES Final Result [facility] [address] [place] [address], documented in this encounter Visit Diagnoses Diagnosis Encounter for gynecological examination (general) (routine) without abnormal findings documented in this encounter Care Teams Eligibility Supervisor Relationship Specialty Start Date End Date Samy Burns MD [address] PCP - General Internal Medicine 07/19/24 documented as of this encounter
== END 2025-01-10 10:41 | disposition home or self-care (01) ==
LOC: HO.LNP 10:40
PROVIDERS: Visit Provider Internal Medicine
DX: N39.0 Urinary tract infection, site not specified (principal)
CPT/HCPCS: 81001; 87086; 87088; 87186

== ENCOUNTER 2025-01-28 10:24 | Outpatient (REF) | payer BC, SELFPAY ==
[2025-01-28 10:34] LABS: Appearance Urine Clear; Glucose Urine UA Negative (Negative); PH 6.0 (5.0-9.0); Specific Gravity - Urine 1.015 (1.005-1.025); UMIC TRIGGER UACC YES
[2025-01-28 11:01] LABS: UACC Culture Trigger YES
--- OUTSIDE RECORDS SUMMARY | 2025-01-28 11:03 | XMS_ITS | Encounter Summary ---
Author Organization [facility] Address [address] [place] [address] Care Team Providers Care Manual Arts Therapy Teacher Name Role Phone Samy Burns MD Primary Care Provider [phone] Encounter Details Date Type Department Care Team (Latest Contact Info) Description 06/05/2024 Lab Requisition [facility] - Main Lab [address] [place] [address] Andrei Pierre MD [address] [phone] Encounter for gynecological examination (general) (routine) without [...] intraepithelial lesion or malignancy 06/14/2024 10:11 AM [facility] Clinical Information PAP HX of LSIL AND ASCUS 06/14/2024 10:11 AM [facility] General Categorization Negative 06/14/2024 10:11 AM [facility] Specimen Adequacy Satisfactory for evaluation 06/14/2024 10:11 AM [facility] Pap Methodology Liquid Based Pap Test 06/14/2024 10:11 AM [facility] Disclaimer The Pap test is a screening test which carries an inherent false negative rate. These test results should be correlated with the patient's clinical findings and history. This Pap test was processed using an automated screening system. Technical cytopathology services provided by [facility], at [address] [place] [address] (CLIA # [id number]/Christine Krause MD, Gaming Cage Worker.) 06/14/2024 10:11 AM [facility] Console Pap Interpretation Reported 06/14/2024 10:11 AM [facility] Brushing/Spatula Vaginal structure / Unknown 06/05/2024 06/05/2024 3:43 PM EST us Andrei Pierre MD LAB CYTOLOGY ORDERABLES Final Result [facility] [address] [place] [address], documented in this encounter Visit Diagnoses Diagnosis Encounter for gynecological examination (general) (routine) without abnormal findings documented in this encounter Care Teams Manual Arts Therapy Teacher Relationship Specialty Start Date End Date Samy Burns MD [address] PCP - General Internal Medicine 07/19/24 documented as of this encounter
== END 2025-01-28 10:25 | disposition home or self-care (01) ==
LOC: HO.LNP 10:24
PROVIDERS: Visit Provider Internal Medicine
DX: Z51.89 Encounter for other specified aftercare (principal)
CPT/HCPCS: 81001; 87086

== ENCOUNTER 2025-05-01 08:35 | Outpatient (AMB) | payer BC, SELFPAY ==
--- OUTSIDE RECORDS SUMMARY | 2024-06-29 02:30 | XMS_ITS ---
Author Organization Brian Burns MD Address [address] [place] [phone] Care Team Providers Care Early Childhood Education Worker Name Role Phone Brian Burns Primary Care Provider Results Component Value Reference Range Notes Complete Blood Count Auto Di ff Reviewed date:06/29/2024 05:37:31 PM Interpretation: Performing Lab:[facility], [address] [place] [phone] Notes/Report: White Blood Count 6.8 4.8-10.8 X10*3/uL Red Blood Count 4.00 4.20-5.50 X10*6/uL Hemoglobin 11.9 12.0-16.0 g/dl Hematocrit 36.0 37.0-47.0 % Mean Corpuscular Volume 90.0 80.0-98.0 fL Mean Corpuscular Hemoglobin 29.8 27.0-33.0 pg Mean Corpuscular HGB Conc 33.1 31.0-35.0 g/dl Red Cell Distribution Width 12.8 11.0-16.0 % Platelet Count 410 160-400 X10*3/uL Mean Platelet Volume 9.2 9.4-12.3 fL Neutrophils Percent Auto 57.0 45-73 % Imm Gran Pct Auto 0.3 0.0-0.4 % Lymphocytes Percent Auto 32.1 20-40 % Monocytes Percent Auto 8.4 2-11 % Eosinophils Percent Auto 1.3 0-4 % Basophils Percent Auto 0.9 0-2 % NRBC Pct Auto 0.0 0.0-0.2 /100WBC Neutrophils Absolute Auto 3.9 2.0-8.3 x10*3/u L Imm Gran Abs Auto 0.02 0.00-0.03 X10*3/uL Lymphocytes Absolute Auto 2.2 1.2-4.9 X10*3/u L Monocytes Absolute Auto 0.6 0.1-1.2 X10*3/uL Eosinophils Absolute Auto 0.1 0.0-0.4 X10*3/u L Basophils Absolute Auto 0.1 0.0-0.2 X10*3/uL NRBC Abs Auto 0.000 0.0-0.012 X10*3/uL Comprehensive [place]. Panel Fa st Reviewed date:06/29/2024 05:27:44 PM Interpretation: Performing Lab:[facility], [address] [place] [phone] Notes/Report: Sodium 139 135-145 mmol/L Potassium 3.7 3.3-5.1 mmol/L Chloride 107 96-108 mmol/L Carbon Dioxide 27 22-29 mmol/L Anion Gap 9 12-20 Blood Urea Nitrogen 15 9-16 mg/dL Creatinine 0.77 0.5-1.4 mg/dL Estimated Glomerular Filt Rate > 60 Chronic Kidney Disease: Estimated GFR < 60 mL/min/1.73m2 Severe Kidney Disease: Estimated GFR < 15 mL/min/1.73m2 Glucose Fasting 93 60-99 mg/dL Calcium 8.8 8.4-10.2 mg/dL Bilirubin Total 1.1 0.0-1.0 mg/dL Aspartate Amino Transferase 24 5-31 U/L Alanine Aminotransferase 17 0-31 U/L Total Protein 7.5 6.5-8.0 g/dL Albumin Level 4.1 3.5-5.0 g/dL Alkaline Phosphatase 105 39-117 U/L Lipid Panel Reviewed date:06/29/2024 05:14:41 PM Interpretation: Performing Lab:[address] [phone] Notes/Report: Triglycerides 103 <150 mg/dL Desirable Triglyceride: less than 150 mg/dL Borderline High Triglyceride 150-199 mg/dL High Triglyceride: 200-499 mg/dL Very High Triglyceride: greater than or equal to 5OO mg/dL Cholesterol 156 <200 mg/dL Desirable Cholesterol: less than 200 mg/dL Borderline High Cholesterol: 200-239 mg/dL High Cholesterol: greater than 239 mg/dL LDL Cholesterol Calculated 64 <100 mg/dL Desirable LDL: less than 100 mg/dL Near Optimal/Above Optimal LDL: 110-129 mg/dL Borderline High LDL: 130-159 mg/dL High LDL: 160-189 mg/dL Very High LDL: greater than or equal to 190 mg/dL HDL Cholesterol 72 >40 mg/dL Desirable HDL: greater than 40 mg/dL Note: This HDL assay may give artificially low results in patients with liver disease. UA ClnCatch+Micro w/rflx Cul t Reviewed date:06/29/2024 05:14:07 PM Interpretation: Performing Lab:[address] [phone] Notes/Report: Urine, Clean Catch Color Urine Yellow Appearance Urine Clear PH 5.5 5.0-9.0 Glucose Urine UA Negative Negative mg/dL Urine Blood Negative Negative Specific [place] - Urine 1.020 1.005-1.025 Urine Protein Negative Neg-Trace mg/dL Urine Ketones Negative Negative mg/dL Nitrite Urine Positive Negative Leukocyte Esterase Urine Moderate (2+) Negative RBC Urine 0-2 0-2 /HPF WBC Urine >50 0-5 /HPF Squamous Epithelial Cell Urine 6-10 0-2 /HPF Bacteria Urine 4+ None Seen Hyaline Casts Urine 0-2 0-2 /LPF REASON FOR VISIT FASTING LABS Encounters Encounter Location Date Provider Diagnosis Brian Burns MD [address] [place], [place] [phone] 06/29/2024 Brian Burns Blood tests for routine general physical examination Z00.00 Assessments Encounter Date Diagnosis (ICD Code) Assessment Notes Treatment Notes Treatment Clinical Notes Section Notes 06/29/2024 Blood tests for routine general physical examination (ICD-10 - Z00.00) Plan Of Treatment Next Appt Details Provider Name:Brian france, 07/12/2025 07:00:00 AM, [address], [address], [place], [place], [phone], Provider Name:Brian france, 07/19/2025 08:00:00 AM, [address] [place] [address] Drive, [address], [place], [place], [phone], Progress Notes * UBALDO Jonathanpatel ADOB:[birth year] (49 yo F)Acc No.[id number]:06/29/2024 Progress Note Patient: Kim RAY Provider: Joellen Burns MD :1975 A ge:49 Y S ex:Female Date:06/29/2024 Address:[address] [place] [address] Doug [phone] Subjective: * Chief Complaints: * 1 . FASTING LABS. * Medical History: Objective: * Vitals: Assessment: * Assessment: 1. B lood tests for routine general physical examination - Z00.00 (Primary) Plan: * Treatment: * Procedure Codes: 3 6415 VENIPUNCT, ROUTINE* * * The named appointment provid er may or may not be the originator of this progress note, and it is not deemed complete until electronically signed by the appointment provider. Sign off status: Pending * Provider: Joellen Burns MD Date: 0 06/29/2024 Generated for Shira jay/Jacoby/Deenaitting on: 1 07/01/2024 08:53 AM EST
--- OUTSIDE RECORDS SUMMARY | 2024-07-02 08:43 | XMS_ITS ---
Author Organization Brian Burns MD Address [address] [place] [phone] Care Team Providers Care Accident Examiner Name Role Phone Brian Burns Primary Care Provider Medications Medication SIG (Take, Route, Fr equency, Duration) Notes Start Date End Date Status Cephalexin 500 MG 1 capsule Orally twi ce a day for 7 days 07/02/2024 Active Encounters Encounter Location Date Provider Diagnosis Brian Burns MD [address] [place] [phone] 07/02/2024 Brian Burns Plan Of Treatment Medication Medication Name Sig Start Date Stop Date Notes Cephalexin 500 MG 1 capsule Orally twice a day for 7 days 07/02/2024 Next Appt Details Provider Name:Brian Funez ier, 07/12/2025 07:00:00 AM, [address], [address], [place], [phone], Provider Name:Brian Funez ier, 07/19/2025 08:00:00 AM, [address], [address], [place], [place], [phone], Progress Notes * Kim LIU ADOB:[birth year] (49 yo F)Acc No.[id number]:07/02/2024 Patient: Joellen anoopamyKim :1975 A ge:49 Y S ex:Female Address:[address] [place] [address] , [place] [address] * Refills Start Cephalexin Capsule, 500 MG, Orally, 14 Capsule, 1 capsule, twice a day, 7 days * true * Date: Generated for Shira jay/Jacoby/Darwinsmitting on: 1 07/01/2024 08:53 AM EST
--- OUTSIDE RECORDS SUMMARY | 2024-07-17 03:00 | XMS_ITS ---
Author Organization Brian Burns MD Address [address] [place] [phone] Care Team Providers Care Claims Service Representative Name Role Phone Brian Burns Primary Care Provider [phone] Allergies No Known Allergies REASON FOR VISIT ANNUAL EXAM Medications Medication SIG (Take, Route, Frequency, Duration) Notes Start Date End Date Status traZODone HCl 50 MG TAKE 2 TABLETS BY [facility] EVERY DAY AT BEDTIME NEEDED Active Cephalexin 500 MG 1 capsule Orally twi ce a day for 7 days 07/02/2024 Not-Taking Estradiol 0.0375 MG/24HR ARMIDA 1 PA EXT TO THE SKIN 2 TIMES A WK Transdermal for 90 Active Propranolol HCl 20 MG 1 tablet Orally Tw ice a day Not-Taking Ibuprofen 800 MG 1 tablet Orally Thre e times a day for 30 day(s) 07/06/2016 Not-Taking Fioricet 50-300-40 MG 1 capsule as neede d Orally every 4 hrs Not-Taking Pantoprazole Sodium 40 MG 1 tablet Orall y Once a day Not-Taking Social History Tobacco Use: Social History Observation Description Date Details (start date - stop date) Never Smoker NA - NA Tobacco Use/Smoking Question Answer Notes Patient is [...] Never (0 point) Points 1 Interpretation Negative Vital Signs Blood pressure systolic 122 mm Hg 07/17/19 25 Blood pressure diastolic 60 mm Hg 025 Height 64 in 07/17/2024 Weight 160 lbs 07/17/2024 BMI 27.46 kg/m2 07/17/2024 weight is up 12 pounds since 09-20-23 Encounters Encounter Location Date Provider Diagnosis Brian Burns MD [address] [place] [address] [address] [place], [place] [phone] 07/17/2024 Brian Burns Unintended weight gain R63.5 ; Annual physical exam Z00.00 ; Closed fracture of one rib of left side, initial encounter S22.32XA ; Primary insomnia F51.01 and Depression screening Z13.31 Assessments Encounter Date Diagnosis (ICD Code) Assessment Notes Treatment Notes Treatment Clinical Notes Section Notes 07/17/2024 Unintended weight gain (ICD-10 - R63.5) spoke about diet and exercise 07/17/2024 Annual physical exam (ICD-10 - Z00.00) healthy, labs reviewed and discussed with patient 07/17/2024 Closed fracture of one rib of left side, initial encounter (ICD-10 - S22.32XA) no treatment except time 07/17/2024 Primary insomnia (ICD-10 - F51.01) stable, will contonue current regiment 07/17/2024 Depression screening (ICD-10 - Z13.31) negative screen Plan Of Treatment Medication Medication Name Sig Start Date Stop Date Notes traZODone HCl 50 MG TAKE 2 TABLETS BY [facility] EVERY DAY AT BEDTIME NEEDED Treatment Notes Assessment Notes Unintended weight gain spoke about diet and exercise Annual physical exam healthy, labs revie wed and discussed with patient Closed fracture of one rib o f left side, initial encounter no treatment except time Primary insomnia stable, will contonu e current regiment Depression screening negative screen Next Appt Details Follow Up: 1 Year, Reason: Provider Name:Brian france, 07/12/2025 07:00:00 AM, [address], [address], [place], [place], [phone], Provider Name:Brian france, 07/19/2025 08:00:00 AM, [address], [address], [place], [place], [phone], Progress Notes * Kim LIU ADOB:[birth year] (49 yo F)Acc No.[id number]:07/17/2024 Progress Notes Patient: Kim RAY Provider: Joellen Burns MD :1975 A ge:49 Y S ex:Female Date:07/17/2024 Address:[address] [place] [id number] Subjective: * Chief Complaints: * A NNUAL EXAM * HPI: D epression Screening: PHQ-9 L ittle interest or pleasure in doing things N ot at all, F eeling down, depressed, or hopeless N ot at all, T rouble falling or staying asleep, or sleeping too much N ot at all, F eeling tired or having little energy N ot at all, P oor appetite or overeating N ot at all, F eeling bad about yourself or that you are a failure, or have let yourself or your family down N ot at all, T rouble concentrating on things, such as reading the newspaper or watching television N ot at all, M oving or speaking so slowly that other people could have noticed; or the opposite, being so fidgety or restless that you have been moving around a lot more than usual N ot at all, T houghts that you would be better off or of hurting yourself in some way N ot at all, T otal Score 0 . I nterpretation and Intervention D epression Screening Findings N egative, F ollow-Up for Depression : review of PHQ-9 found negative result, no follow-up needed. fell 2 weeks ago and elbow into hurts at sternum now. C ommunication Needs: Communication Needs D oes the patient have a hearing impairment N o, D oes the patient have a vision impairment? N o, D oes the patient have a cognition impairment? N o. S RAVI Questions: SDOH Questions I n the past year have you been worried about losing housing? N o, I n the past year have you or any family members you live with been unable to get any of the following when it was really needed? Check all that apply: N one. F all Risk: History H ave you had any falls with injury in the past year? Y es 07-03-24 fell playing with the dog in her yard , No Er visit landed on left side.. * ROS: G eneral/Constitutional: Change in appetite d enies. C hills d enies. F ever d enies. O phthalmologic: Blurred vision d enies. D ischarge d enies. P ain d enies. E NT: Decreased hearing d enies. S ore throat d enies.?Swollen glands d enies. E ndocrine: Cold intolerance d enies. E xcessive thirst d enies. H eat intolerance d enies. W eight loss d enies. R espiratory: Cough d enies. S hortness of breath at rest d enies. S hortness of breath with exertion d enies. W heezing d enies. C ardiovascular: Chest pain at rest d enies. C hest pain with exertion?denies. I rregular heartbeat d enies. S hortness of breath d enies. ? G astrointestinal: Abdominal pain d enies. C hange in bowel habits d enies. D iarrhea d enies. N ausea d enies. R ectal bleeding d enies. V omiting d enies . G enitourinary: Blood in urine d enies. D ifficulty urinating d enies. F requent urination d enies. U rinary incontinence D enies. M usculoskeletal: Painful joints d enies. W eakness d enies. ? S kin: Dry skin d enies. I tching d enies. D enies?Mole(s), changes in moles, new moles or any lesions of concern. D enies P hotosensitivity. R roman d enies. N eurologic: Dizziness d enies. F ainting d enies. H eadache?denies. * Medical History: * Surgical History: * Hospitalization/Major Diagno stic Procedure: * Family History: F ather: 54 yrs, COPD, emphysema. M other: alive 77 yrs, Hypertension , type II diabetes. 3 brother(s) . 2 son(s) . . Denies mental health/substance abuse family history, Denies mental health/substance abuse family history, Denies mental health/substance abuse family history, No pertinent family medical history. * Social History: T obacco Use: T obacco Use/Smoking P atient is a n onsmoker, A dditional Findings: Tobacco Non-User C urrent non-smoker, currently using no form of tobacco. D rugs/Alcohol: A lcohol Screen D id you have a drink containing alcohol in the past year? Y es, H ow often did you have a drink containing alcohol in the past year? M onthly or less (1 point), H ow many drinks did you have on a typical day when you were drinking in the past year? 1 or 2 drinks (0 point), H ow often did you have 6 or more drinks on one occasion in the past year? N ever (0 point), P oints 1 , I nterpretation N egative. M iscellaneous: Torri babcock: yes. Community involvements: yes. Exercise: no. Home smoke detector use: yes. Housing: owning. Living with: family. Marital status: . Occupation: weeks/months/years, works full-time. Pets: none. Travel outside of the [place]: no. * Medications: T akingEstradiol 0.0375 MG/24HR Patch Twice Weekly ARMIDA 1 PA EXT TO THE SKIN 2 TIMES A WK Transdermal traZODone HCl 50 MG Tablet TAKE 2 TABLETS BY MOUTH EVERY DAY AT BEDTIME NEEDED Taking Estradiol 0.0375 MG/24HR Patch Twice Weekly ARMIDA 1 PA EXT TO THE SKIN 2 TIMES A WK Transdermal Taking traZODone HCl 50 MG Tablet TAKE 2 TABLETS BY MOUTH EVERY DAY AT BEDTIME NEEDED Not-Taking/PRNCephalexin 500 MG Capsule 1 capsule Orally twice a day Fioricet 50-300-40 MG Capsule 1 capsule as needed Orally every 4 hrs Pantoprazole Sodium 40 MG Tablet Delayed Release 1 tablet Orally Once a day Propranolol HCl 20 MG Tablet 1 tablet Orally Twice a day Ibuprofen 800 MG Tablet 1 tablet Orally Three times a day Medication List reviewed and reconciled with the patientNot-Taking/PRN Cephalexin 500 MG Capsule 1 capsule Orally twice a day Not-Taking/PRN Fioricet 50-300-40 MG Capsule 1 capsule as needed Orally every 4 hrs Not-Taking/PRN Pantoprazole Sodium 40 MG Tablet Delayed Release 1 tablet Orally Once a day Not-Taking/PRN Propranolol HCl 20 MG Tablet 1 tablet Orally Twice a day Not-Taking/PRN Ibuprofen 800 MG Tablet 1 tablet Orally Three times a day Medication List reviewed and reconciled with the patient * Allergies: N .K.D.A.yes[Allergies Verified] Objective: * Vitals: H t: 64, Wt: 160, BMI:27.46, BP:122/60, Wt-k.58. weight is up 12 pounds since 09-20-23. * P ast Orders: L ab:UA ClnCatch+Micro w/rflx Cult (Order Date - 06/29/2024) (Collection Date & Time - 06/29/2024 07:30 AM) Value Reference Range Color Urine Yellow - Appearance Urine Clear - PH 5.5 5.0-9.0 - Glucose Urine UA Negative Negative - mg/dL Urine Blood Negative Negative - Specific Wells - Urine 1.020 1.005-1.025 - Urine Protein Negative Neg-Trace - mg/dL Urine Ketones Negative Negative - mg/dL Nitrite Urine Positive A Negative - Leukocyte Esterase Urine Moderate (2+) A Negative - RBC Urine 0-2 0-2 - /HPF WBC Urine >50 A 0-5 - /HPF Squamous Epithelial Cell Urine 6-10 0-2 - /HP F Bacteria Urine 4+ None Seen - Hyaline Casts Urine 0-2 0-2 - /LPF L ab:Complete Blood Count Auto Diff (Order Date - 06/29/2024) (Collection Date & Time - 06/29/2024 07:30 AM) Value Reference Range White Blood Count 6.8 4.8-10.8 - X10*3/uL Red Blood Count 4.00 L 4.20-5.50 - X10*6/uL Hemoglobin 11.9 L 12.0-16.0 - g/dl Hematocrit 36.0 L 37.0-47.0 - % Mean Corpuscular Volume 90.0 80.0-98.0 - fL Mean Corpuscular Hemoglobin 29.8 27.0-33.0 - pg Mean Corpuscular HGB Conc 33.1 31.0-35.0 - g/ dl Red Cell Distribution Width 12.8 11.0-16.0 - % Platelet Count 410 H 160-400 - X10*3/uL Mean Platelet Volume 9.2 L 9.4-12.3 - fL Neutrophils Percent Auto 57.0 45-73 - % Imm Gran Pct Auto 0.3 0.0-0.4 - % Lymphocytes Percent Auto 32.1 20-40 - % Monocytes Percent Auto 8.4 2-11 - % Eosinophils Percent Auto 1.3 0-4 - % Basophils Percent Auto 0.9 0-2 - % NRBC Pct Auto 0.0 0.0-0.2 - /100WBC Neutrophils Absolute Auto 3.9 2.0-8.3 - x10* 3/uL Imm Gran Abs Auto 0.02 0.00-0.03 - X10*3/uL Lymphocytes Absolute Auto 2.2 1.2-4.9 - X10* 3/uL Monocytes Absolute Auto 0.6 0.1-1.2 - X10*3/ uL Eosinophils Absolute Auto 0.1 0.0-0.4 - X10* 3/uL Basophils Absolute Auto 0.1 0.0-0.2 - X10*3/ uL NRBC Abs Auto 0.000 0.0-0.012 - X10*3/uL L ab:Comprehensive [place]. Panel Fast (Order Date - 06/29/2024) (Collection Date & Time - 06/29/2024 07:30 AM) Value Reference Range Sodium 139 135-145 - mmol/L Bilirubin Total 1.1 H 0.0-1.0 - mg/dL Aspartate Amino Transferase 24 5-31 - U/L Alanine Aminotransferase 17 0-31 - U/L Total Protein 7.5 6.5-8.0 - g/dL Albumin Level 4.1 3.5-5.0 - g/dL Alkaline Phosphatase 105 39-117 - U/L Potassium 3.7 3.3-5.1 - mmol/L Chloride 107 96-108 - mmol/L Carbon Dioxide 27 22-29 - mmol/L Anion Gap 9 L 12-20 - Blood Urea Nitrogen 15 9-16 - mg/dL Creatinine 0.77 0.5-1.4 - mg/dL Estimated Glomerular Filt Rate > 60 - Glucose Fasting 93 60-99 - mg/dL Calcium 8.8 8.4-10.2 - mg/dL L ab:Lipid Panel (Order Date - 06/29/2024) (Collection Date & Time - 06/29/2024 07:30 AM) Value Reference Range Triglycerides 103 <150 - mg/dL Cholesterol 156 <200 - mg/dL LDL Cholesterol Calculated 64 <100 - mg/dL HDL Cholesterol 72 >40 - mg/dL L ab:Urine Culture (Order Date - 06/29/2024) (Collection Date & Time - 06/29/2024) Value Reference Range O:ESCCOL Escherichia coli - Urine Culture > 100,000 cfu/mL - Ampicillin 4 S - Ceftriaxone <=0.25 S - Gentamicin <=1 S - Nitrofurantoin <=16 S - Trimethoprim/Sulfamethoxazole <=20 S - Cefepime <=0.12 S - Cefazolin <=1 S - Ciprofloxacin <=0.06 S - * Examination: G eneral Examination: GENERAL APPEARANCE: w ell developed, well nourished, in no acute distress. HEAD: n ormocephalic, atraumatic. EYES: p upils equal, round, reactive to light and accommodation, sclera non-icteric. EARS: n ormal. ORAL CAVITY: m ucosa moist. THROAT: c lear. NECK/THYROID: n vinayak supple, full range of motion, no cervical lymphadenopathy, no bruits. SKIN: w arm and dry, no suspicious lesions. HEART: r egular rate and rhythm, S1, S2 normal, no murmurs.? LUNGS: c lear to auscultation bilaterally. BREASTS: d one by archeologist. ABDOMEN: s oft, nontender, nondistended, bowel sounds present, normal, no organomegaly , no masses palpable. RECTAL EXAM: d one by archeologist. FEMALE GENITOURINARY: d one by archeologist. EXTREMITIES: n o clubbing, cyanosis, or edema. NEUROLOGIC: n onfocal, motor strength normal upper and lower extremities, sensory exam intact. Assessment: * Assessment: 1. A nnual physical exam - Z00.00 (Primary) 2 . U nintended weight gain - R63.5 3 . C losed fracture of one rib of left side, initial encounter - S22.32XA? 4. P rimary insomnia - F51.01 5 . D epression screening - Z13.31 Plan: * Treatment: 2. U nintended weight gain Notes: spoke about diet and exercise 3. C losed fracture of one rib of left side, initial encounter Notes: no treatment except time 4. P rimary insomnia Continue traZODone HCl Tablet, 50 MG, TAKE 2 TABLETS BY MOUTH EVERY DAY AT BEDTIME NEEDED. ? Notes: stable, will contonue current regiment 5. D epression screening Notes: negative screen * Procedure Codes: * Preventive Medicine: Counseling: C are goal follow-up plan: C ounseling for abnormal BMI provided?Yes, A brooks Normal BMI Follow-up G huanging encouragement to exercise. * Follow Up: 1 Year * * Sign off status: Completed true * Provider: Joellen Burns MD Date: 0 07/17/2024 Generated for Shira jay/Jacoby/Patito on: 07/01/2024 08:53 AM EST History and Physical Notes * HPI (History of Present Illness) Category Sub-Category Detail Notes Category Not es Depression Screening PHQ-9 Little inte rest or pleasure in doing things: Not at all fell 2 weeks ago and elbow into hurts at sternum now Feeling down, depressed, or hopeless: No t at all Trouble falling or staying asleep, or sl eeping too much: Not at all Feeling tired or having little energy: N ot at all Poor appetite or overeating: Not at all Feeling bad about yourself o r that you are a failure, or have let yourself or your family down: Not at all Trouble concentrating on thi ngs, such as reading the newspaper or watching television: Not at all Moving or speaking so slowly that other people could have noticed; or the opposite, being so fidgety or restless that you have been moving around a lot more than usual: Not at all Thoughts that you would be b amairani off or of hurting yourself in some way: Not at all Total Score: 0 Interpretation and Intervention Depression Morris hansen Findings: Negative Follow-Up for Depression: : review of PH Q-9 found negative result, no follow-up needed SDOH Questions SDOH Questions In the past year have you been worried about losing housing?: No In the past year have you or any family members you live with been unable to get any of the following when it was really needed? Check all that apply:: None Fall Risk History Have you had any falls with injury in the past year?: Yes 07-03-23 fell playing with the dog in her yard , No Er visit landed on left side. Communication Needs Communication Needs Does the patient have a hearing impairment: No Does the patient have a vision impairmen t?: No Does the patient have a cognition impair ment?: No Examination Category Sub-Category Detail Notes Category Not es General Examination GENERAL APPEARANCE: well dev eloped, well nourished, in no acute distress HEAD: normocephalic, atrau matic EYES: pupils equal, round, reactive to light and accommodation, sclera non-icteric EARS: normal THROAT: clear NECK/THYROID: neck supple, full ra nge of motion, no cervical lymphadenopathy, no bruits HEART: regular rate and rhy thm, S1, S2 normal, no murmurs LUNGS: clear to auscultatio n bilaterally ABDOMEN: soft, nontender, non distended, bowel sounds present, normal, no organomegaly , no masses palpable NEUROLOGIC: nonfocal, motor stre ngth normal upper and lower extremities, sensory exam intact SKIN: warm and dry, no erica picious lesions EXTREMITIES: no clubbing, cyanosi s, or edema BREASTS: done by archeologist RECTAL EXAM: done by archeologist FEMALE GENITOURINARY: done by archeologist ORAL CAVITY: mucosa moist
--- OUTSIDE RECORDS SUMMARY | 2024-09-25 09:06 | XMS_ITS ---
Author Organization Brian Burns MD Address [address] [place] [phone] Care Team Providers Care Fiscal Accountant Name Role Phone Brian Burns Primary Care Provider REASON FOR VISIT wants a call back Medications Medication SIG (Take, Route, Fr equency, Duration) Notes Start Date End Date Status traZODone HCl 50 MG TAKE 2 TABLETS BY MO UT EVERY DAY AT BEDTIME NEEDED Orally Once a day for 30 days Active Encounters Encounter Location Date Provider Diagnosis Brian Burns MD [address] [place] [phone] 09/25/2024 Brian Burns Primary insomnia F51.01 Assessments Encounter Date Diagnosis (ICD Code) Assessment Notes Treatment Notes Treatment Clinical Notes Section Notes 09/25/2024 Primary insomnia (ICD-10 - F51.01) Plan Of Treatment Medication Medication Name Sig Start Date Stop Date Notes traZODone HCl 50 MG TAKE 2 TABLETS BY MO [facility] EVERY DAY AT BEDTIME NEEDED Orally Once a day for 30 days Next Appt Details Provider Name:Brian Funez ier, 07/12/2025 07:00:00 AM, [address], [address], [place], [place], [phone], Provider Name:Brian Funez ier, 07/19/2025 08:00:00 AM, [address], [address], [place], [place], [phone], Progress Notes * Kim LIU ADOB:[birth year] (49 yo F)Acc No.[id number]:09/25/2024 Patient: Joellen Kim KAUR :1975 A ge:49 Y S ex:Female Address:[address] [place] [address] , [place] [address] * Refills Continue traZODone HCl Tablet, 50 MG, Orally, 60, TAKE 2 TABLETS BY MOUTH EVERY DAY AT BEDTIME NEEDED, Once a day, 30 days, Refills=3 * true * Date: Generated for Shira jay/Jacoby/Deenaitting on: 07/01/2024 08:54 AM EST
--- OUTSIDE RECORDS SUMMARY | 2024-10-15 06:11 | XMS_ITS ---
Author Organization Brian Burns MD Address [address] [place] [phone] Care Team Providers Care Operation Research Analyst Name Role Phone Brian Burns Primary Care Provider [phone] REASON FOR VISIT ER Encounters Encounter Location Date Provider Diagnosis Brian Burns MD [address] [facility] [address] [place] [phone] 10/15/2024 Brian Burns Plan Of Treatment Next Appt Details Provider Name:Brian france, 07/12/2025 07:00:00 AM, [address] [facility], [address] [facility], [place], [place], [phone], Provider Name:Brian Gerber Ludintoni ormán, 07/19/2025 08:00:00 AM, [address], [address], [place], [place], [phone], Progress Notes * Dann LIU ADOB:[birth year] (49 yo F)Acc No.[id number]:10/15/2024 Patient: Joellen BRYANJonathan VOGLEpatel Bermudez :1975 A ge:49 Y S ex:Female Address:[address] [place] [address] , [place] [id number] * true * Date: Generated for Shira jay/Jacoby/Deenaitting on: 07/01/2024 08:54 AM EST
--- OUTSIDE RECORDS SUMMARY | 2025-01-08 10:15 | XMS_ITS ---
Author Organization Brian Burns MD Address [address] [place] [id number] Care Team Providers Care Biomed Tech Name Role Phone Brian Burns Primary Care Provider Allergies No Known Allergies REASON FOR VISIT EARS BLOCKED AND ONE IS PAINFUL Medications Medication SIG (Take, Route, Frequency, Duration) Notes Start Date End Date Status Propranolol HCl 20 MG 1 tablet Orally Tw ice a day Not-Taking Ibuprofen 800 MG 1 tablet Orally Thre e times a day for 30 day(s) 07/06/2016 Not-Taking traZODone HCl 50 MG TAKE 2 TABLETS BY [facility] EVERY DAY AT BEDTIME NEEDED Orally Once a day for 30 days Active Fioricet 50-300-40 MG 1 capsule as neede d Orally every 4 hrs Not-Taking Pantoprazole Sodium 40 MG 1 tablet Orall y Once a day Not-Taking Cephalexin 500 MG 1 capsule Orally twi ce a day for 7 days 07/02/2024 Not-Taking Estradiol 0.0375 MG/24HR ARMIDA 1 PA EXT TO THE SKIN 2 TIMES A WK Transdermal for 90 Active Vital Signs Blood pressure systolic 94 mm Hg 01/09/20 25 Blood pressure diastolic 62 mm Hg 025 Height 64 in 01/08/2025 Weight 162 lbs 01/08/2025 BMI 27.8 kg/m2 01/08/2025 Encounters Encounter Location Date Provider Diagnosis Brian Burns MD [address] [place] [address] [place] [phone] 01/08/2025 Brian Burns Primary insomnia F51.01 and Cerumen impaction H61.20 Assessments Encounter Date Diagnosis (ICD Code) Assessment Notes Treatment Notes Treatment Clinical Notes Section Notes 01/08/2025 Primary insomnia (ICD-10 - F51.01) 01/08/2025 Cerumen impaction (ICD-10 - H61.20) Plan Of Treatment Medication Medication Name Sig Start Date Stop Date Notes traZODone HCl 50 MG TAKE 2 TABLETS BY SC UT EVERY DAY AT BEDTIME NEEDED Orally Once a day for 30 days Next Appt Details Provider Name:Brian france, 07/12/2025 07:00:00 AM, [address] [place] [address], [address], [phone], Provider Name:Brian france, 07/19/2025 08:00:00 AM, [address] [place] [address], [place] [address], [place], [place], [phone], Procedure Notes * Category Sub-Category Detail Notes Cerumen removal Procedure under direct vis ualization, right ear, left ear, irrigated with water/H2O2 Post-procedure Pt tolerated procedu re well. left tm was mildly red but did not appear infected appeared like just from flushin Progress Notes * Kim LIU ADOB:[birth year] (49 yo F)Acc No.[id number]:01/08/2025 Progress Notes Patient: Kim RAY Provider: Joellen Burns MD :1975 A ge:49 Y S ex:Female Date:01/08/2025 Address:[address], [id number] Subjective: * Chief Complaints: * E ARS BLOCKED AND ONE IS PAINFUL * HPI: S ymptom(s): pt is a 49 yo female here today becasue her ears are itching and have dry skin the also feel blocked and are hurting. Pt also reports still having troube sleeeping. * ROS: G eneral/Constitutional: Denies C hills. D enies F atigue. D enies F ever. D enies H eadache. E NT: Patient complaining of c /o bilater ear pain. A dmits?Ear pain. R espiratory: Denies C ough. D enies S hortness of breath at rest. D enies S hortness of breath with exertion. G astrointestinal: Denies D iarrhea. D enies N ausea. * Medical History: * Surgical History: * Hospitalization/Major Diagno stic Procedure: * Medications: T akingEstradiol 0.0375 MG/24HR Patch Twice Weekly ARMIDA 1 PA EXT TO THE SKIN 2 TIMES A WK Transdermal traZODone HCl 50 MG Tablet TAKE 2 TABLETS BY MOUTH EVERY DAY AT BEDTIME NEEDED Orally Once a day Taking Estradiol 0.0375 MG/24HR Patch Twice Weekly ARMIDA 1 PA EXT TO THE SKIN 2 TIMES A WK Transdermal Taking traZODone HCl 50 MG Tablet TAKE 2 TABLETS BY MOUTH EVERY DAY AT BEDTIME NEEDED Orally Once a day Not-Taking/PRNCephalexin 500 MG Capsule 1 capsule Orally [...] Objective: * Vitals: H t: 64, Wt: 162, BMI:27.8, BP:94/62, Wt-k.48. * Examination: G eneral Examination: GENERAL APPEARANCE: a lert, well hydrated, in no distress.? EARS: a uditory canal obscured with wax. ? Assessment: * Assessment: 1. C erumen impaction - H61.20 (Primary) 2 . P rimary insomnia - F51.01? Plan: * Treatment: * Procedures: C erumen removal: Procedure u nder direct visualization, right ear, left ear, irrigated with water/H2O2. P ost-procedure P t tolerated procedure well. left tm was mildly red but did not appear infected appeared like just from flushin. * Procedure Codes: * * Sign off status: Completed true * Provider: Joellen Burns MD Date: 0 01/08/2025 Generated for Shira jay/Jacoby/Patito on: 07/01/2024 08:53 AM EST History and Physical Notes * HPI (History of Present Illness) Category Sub-Category Detail Notes Category Not es Symptom(s) pt is a 49 yo f emale here today becasue her ears are itching and have dry skin the also feel blocked and are hurting. Pt also reports still having troube sleeeping Examination Category Sub-Category Detail Notes Category Not es General Examination GENERAL APPEARANCE: alert, w ell hydrated, in no distress EARS: auditory canal obscu red with wax
--- OUTSIDE RECORDS SUMMARY | 2025-01-10 03:30 | XMS_ITS ---
Author Organization Brian Burns MD Address [address] [place] [phone] Care Team Providers Care Director Channel Name Role Phone Brian Burns Primary Care Provider [phone] Results Component Value Reference Range Notes UA ClnCatch+Micro w/rflx Cul t Reviewed date:01/10/2025 04:55:56 PM Interpretation: Performing Lab:[facility], [address] [place] [phone] Notes/Report: Urine, Clean Catch Color Urine Yellow Appearance Urine Cloudy PH 6.0 5.0-9.0 Glucose Urine UA Negative Negative mg/dL Urine Blood Trace Negative Specific [place] - Urine 1.015 1.005-1.025 Urine Protein Trace Neg-Trace mg/dL Urine Ketones Negative Negative mg/dL Nitrite Urine Positive Negative Leukocyte Esterase Urine Large (3+) Negative RBC Urine 0-2 0-2 /HPF WBC Urine >50 0-5 /HPF Squamous Epithelial Cell Urine 0-2 0-2 /HPF Bacteria Urine 4+ None Seen Hyaline Casts Urine 3-5 0-2 /LPF REASON FOR VISIT U/A Encounters Encounter Location Date Provider Diagnosis Brian Burns MD [address] [place] [address] [place] [phone] 01/10/2025 Brian Burns UTI (urinary tract infection) N39.0 Assessments Encounter Date Diagnosis (ICD Code) Assessment Notes Treatment Notes Treatment Clinical Notes Section Notes 01/10/2025 UTI (urinary tract infection) (ICD-10 - N39.0) Plan Of Treatment Next Appt Details Provider Name:Brian france, 07/12/2025 07:00:00 AM, [address] [place] [address], [address], [phone], Provider Name:Brian france, 07/19/2025 08:00:00 AM, [address] [place] [address], Suite [facility], [place], [place], [phone], Progress Notes * Kim LIU ADOB:[birth year] (49 yo F)Acc No.[id number]:01/10/2025 Progress Note Patient: Kim RAY Provider: Joellen Burns MD :1975 A ge:49 Y S ex:Female Date:01/10/2025 Address:[address] [place] [id number] Subjective: * Chief Complaints: * 1 . U/A. * Medical History: Objective: * Vitals: Assessment: * Assessment: 1. U TI (urinary tract infection) - N39.0 (Primary) Plan: * Treatment: * * The named appointment provid er may or may not be the originator of this progress note, and it is not deemed complete until electronically signed by the appointment provider. Sign off status: Pending * Provider: Joellen Burns MD Date: 0 01/10/2025 Generated for Shira jay/Jacoby/Patito on: 1 07/01/2024 08:54 AM EST
--- OUTSIDE RECORDS SUMMARY | 2025-01-10 10:27 | XMS_ITS ---
Author Organization Brian Burns MD Address [address] [place] [phone] Care Team Providers Care Ornament Setter Name Role Phone Brian Burns Primary Care Provider Medications Medication SIG (Take, Route, Fr equency, Duration) Notes Start Date End Date Status Cephalexin 500 MG 1 capsule Orally twi ce a day for 7 days 07/02/2024 Active Encounters Encounter Location Date Provider Diagnosis Brian Burns MD [address] [place] [phone] 01/10/2025 Brian Burns Plan Of Treatment Medication Medication Name Sig Start Date Stop Date Notes Cephalexin 500 MG 1 capsule Orally twice a day for 7 days 07/02/2024 Next Appt Details Provider Name:Brian Funez ier, 07/12/2025 07:00:00 AM, [address], [address], [place], [place], [phone], Provider Name:Brian Funez ier, 07/19/2025 08:00:00 AM, [address], [address], [place], [place], [phone], Progress Notes * Kim LIU ADOB:[birth year] (49 yo F)Acc No.[id number]:01/10/2025 Patient: Joellen BRYANLELAKim :1975 A ge:49 Y S ex:Female Address:[address] [place] [address] , [place] [address] * Refills Refill Cephalexin Capsule, 500 MG, Orally, 14 Capsule, 1 capsule, twice a day, 7 days * true * Date: Generated for Shira jay/Jacoby/Darwinsmitting on: 1 07/01/2024 08:53 AM EST
--- OUTSIDE RECORDS SUMMARY | 2025-01-28 02:15 | XMS_ITS ---
Author Organization Brian Burns MD Address [address] [place] [phone] Care Team Providers Care Printed Circuit Board Preassembler Name Role Phone Brian Burns Primary Care Provider [phone] Results Component Value Reference Range Notes UA ClnCatch+Micro w/rflx Cul t Reviewed date:01/28/2025 06:03:07 PM Interpretation: Performing Lab:[facility], [address] [place] [phone] Notes/Report: [id number] Urine, Clean Catch Color Urine Yellow Appearance Urine Clear PH 6.0 5.0-9.0 Glucose Urine UA Negative Negative mg/dL Urine Blood Negative Negative Specific [place] - Urine 1.015 1.005-1.025 Urine Protein Negative Neg-Trace mg/dL Urine Ketones Negative Negative mg/dL Nitrite Urine Negative Negative Leukocyte Esterase Urine Small (1+) Negative RBC Urine 0-2 0-2 /HPF WBC Urine 0-5 0-5 /HPF Squamous Epithelial Cell Urine 0-2 0-2 /HPF Calcium Oxalate Crystals Urine Present Bacteria Urine None Seen None Seen Hyaline Casts Urine 0-2 0-2 /LPF REASON FOR VISIT after care u/a Encounters Encounter Location Date Provider Diagnosis Brian Burns MD [address] [place] [phone] 01/28/2025 Brian Burns After-treatment Z51.89 Assessments Encounter Date Diagnosis (ICD Code) Assessment Notes Treatment Notes Treatment Clinical Notes Section Notes 01/28/2025 After-treatment (ICD-10 - Z51.89) Plan Of Treatment Next Appt Details Provider Name:Brian france, 07/12/2025 07:00:00 AM, [address] [place] [address], [address] [place] [address], [phone], Provider Name:Brian france, 07/19/2025 08:00:00 AM, [address] [place] [address], Suite [facility], [place], [place], [phone], Progress Notes * LINAidanKim ADOB:[birth year] (49 yo F)Acc No.[id number]:01/28/2025 Progress Note Patient: Kim RAY Provider: Joellen Burns MD :1975 A ge:49 Y S ex:Female Date:01/28/2025 Address:[address] [place] [phone] Subjective: * Chief Complaints: * 1 . After care u/a. * Medical History: Objective: * Vitals: Assessment: * Assessment: 1. A fter-treatment - Z51.89 (Primary) Plan: * Treatment: * * The named appointment provid er may or may not be the originator of this progress note, and it is not deemed complete until electronically signed by the appointment provider. Sign off status: Pending * Provider: Joellen Burns MD Date: 0 01/28/2025 Generated for Shira jay/Jacoby/Patito on: 1 07/01/2024 08:54 AM EST
--- OUTSIDE RECORDS SUMMARY | 2025-04-22 06:47 | XMS_ITS ---
Author Organization Brian Burns MD Address [address] [place] [phone] Care Team Providers Care Lap Cutter Name Role Phone Brian Burns Primary Care Provider [phone] REASON FOR VISIT refill Medications Medication SIG (Take, Route, Fr equency, Duration) Notes Start Date End Date Status traZODone HCl 50 MG TAKE 2 TABLETS BY MO [facility] EVERY DAY AT BEDTIME NEEDED for 30 days Active Encounters Encounter Location Date Provider Diagnosis Brian Burns MD [address] [place] [phone] 04/22/2025 Brian Burns Primary insomnia F51.01 Assessments Encounter Date Diagnosis (ICD Code) Assessment Notes Treatment Notes Treatment Clinical Notes Section Notes 04/22/2025 Primary insomnia (ICD-10 - F51.01) Plan Of Treatment Medication Medication Name Sig Start Date Stop Date Notes traZODone HCl 50 MG TAKE 2 TABLETS BY MO [facility] EVERY DAY AT BEDTIME NEEDED for 30 days Next Appt Details Provider Name:Brian Funez tressar, 07/12/2025 07:00:00 AM, [address], [address], [place], [place], [phone], Provider Name:Brian Funez ier, 07/19/2025 08:00:00 AM, [address], [address], [place], [place], [phone], Progress Notes * Kim LIU ADOB:[birth year] (49 yo F)Acc No.[id number]:04/22/2025 Patient: Kim RAY Aidan :1975 A ge:49 Y S ex:Female Address:[address] [place] [address] , [place] [address] * Refills Refill traZODone HCl Tablet, 50 MG, 60, TAKE 2 TABLETS BY MOUTH EVERY DAY AT BEDTIME NEEDED, 30 days, Refills=0 * true * Date: Generated for Shira jay/Jacoby/Deenaitting on: 07/01/2024 08:54 AM EST
--- NOTE | 2025-05-01 08:49 | MHC.OFFVIS ---
Intake Visit Reasons: 1 yr follow up Allergies Seasonal Allergies Allergy (Mild, Verified 10/14/24 10:43) per skin testing for allergies-mild symptoms reported HPI Comments Details: 49 years old woman with depression, IBS, insomnia, and migraine headaches. She is presenting with insomnia and anxiety. She experiences frequent tossing and turning at night despite current trazodone usage, suggesting persisting difficulties with maintaining sleep. 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 She has previously used sertraline over 20 years ago for -related issues but is considering it, or Lexapro, again. Additionally, the patient reports tension-type headaches related to stress and lack of sleep but no recent migraines. [facility] Medical History Seasonal allergies History of COVID-19 Surgical History History of Denise-en-Y gastric bypass S/P NILA-BSO (total abdominal hysterectomy and bilateral salpingo-oophorectomy) History of esophagogastroduodenoscopy (EGD) Hx of colonoscopy H/O removal of cyst Hx of section Family History Father Emphysema lung COPD (chronic obstructive pulmonary disease) Mother DM (diabetes mellitus) HTN (hypertension) Glaucoma Brother No problems noted. Brother No problems noted. Brother No problems noted. Son No problems noted. Son No problems noted. Social History Household Members Other:: 2 adult children-ages 19 & 21 Are you a primary home care rn to a significant other at home: No Do you presently have visiting nurse or other home services: No Alcohol intake: current Alcohol intake frequency: a few times a week Patient Tobacco Use Status: Never used Tobacco Second Hand Smoke Exposure: No Current occupational status: employed Current occupation: [employer] Narrative - Neurological: Reports tension headaches, denies recent migraines. - Psychiatric: Reports insomnia and anxiety-related symptoms, feeling scattered at work, and difficulty focusing. - General: No specific systemic symptoms discussed. Physical Exam Neuro Other: Mental Status: Alert and oriented to person, place, and time. Normal attention. Normal spontaneous speech, fluency, and comprehension. No obvious issues with mood and memory. Affect is appropriate. Cranial Nerves: CN II: Visual cordova full to confrontation, visual acuity intact. CN III, IV, : Pupils equal, round, reactive to light and accommodation. Extraocular movements are normal. CN V: Facial sensation is normal. CN VII: Facial movements symmetrical. CN VIII: Hearing intact to bedside conversation is normal. CN IX, X: Palate elevates symmetrically. CN XI: Shoulder shrug and head turn symmetrical. CN XII: Tongue midline without atrophy or fasciculations. Motor: Bulk and tone normal in all extremities. No significant muscle weakness in arms and legs. No drift. Extrapyramidal: Full facial expressions and blinking. No rigidity. Movements are appropriate with no tremor or abnormality. Speech: Normal; no dysarthria or tremor. Assessment & Plan Assessment & Plan (1) Migraine: Comment: Tried before: Topamax. Sumatriptan, propranolol, fiorecet, Tylenol, ibuprofen MRI brain WO at [facility] in Jun 2019: WNL CT brain WO at [facility] in Jun 2019: WNL CT brain WO at [facility] in 2006: WNL. Code(s): G43.909 - Migraine, unspecified, not intractable, without status migrainosus Category: Medical Qualifiers: Migraine type: without aura Status migrainosus presence: without status migrainosus Intractability: not intractable Qualified Code(s): G43.009 - Migraine without aura, not intractable, without status migrainosus (2) Insomnia: Code(s): G47.00 - Insomnia, unspecified Category: Medical Qualifiers: Insomnia type: psychophysiologic Qualified Code(s): F51.04 - Psychophysiologic insomnia (3) Tension type headache: Code(s): G44.209 - Tension-type headache, unspecified, not intractable Category: Medical Qualifiers: Headache chronicity pattern: chronic headache Intractability: not intractable Qualified Code(s): G44.229 - Chronic tension-type headache, not intractable Plan Impression: 1. Chronic migraine is tension-type headaches 2. Psychosocial insomnia 3. Stress/anxiety disorder Recommendations: 1. Reassurance and education 2. Try sertraline 25 mg with breakfast 3. Trazodone 50 mg half to 1 at night as needed Medications: New sertraline 25 mg orally one with breakfast; 90 tabs 0RF Refilled trazodone 50 mg PO BEDTIME 90 tabs 1RF Coding Level of Care Code Est Pt Level 3 (60519) Diagnoses Migraine without aura and without status migrainosus, not intractable G43.009 Migraine type: without aura Status migrainosus presence: without status migrainosus Intractability: not intractable Psychophysiological insomnia F51.04 Insomnia type: psychophysiologic Chronic tension-type headache, not intractable G44.229 Headache chronicity pattern: chronic headache Intractability: not intractable Time Spent (min) 20
--- OUTSIDE RECORDS SUMMARY | 2025-05-01 08:53 | XMS_ITS | Encounter Summary ---
Author Organization [facility] Address [address] [place] [address] Care Team Providers Care Cotton Farmer Name Role Phone Samy Burns MD Primary Care Provider [phone] Encounter Details Date Type Department Care Team (Latest Contact Info) Description 06/05/2024 Lab Requisition [facility] - Main Lab [address] [place] [address] Andrei Pierre MD [address] [phone] Encounter for gynecological examination (general) (routine) without [...] intraepithelial lesion or malignancy 06/14/2024 10:11 AM [facility] Clinical Information PAP HX of LSIL AND ASCUS 06/14/2024 10:11 AM [facility] General Categorization Negative 06/14/2024 10:11 AM [facility] Specimen Adequacy Satisfactory for evaluation 06/14/2024 10:11 AM [facility] Pap Methodology Liquid Based Pap Test 06/14/2024 10:11 AM [facility] Disclaimer The Pap test is a screening test which carries an inherent false negative rate. These test results should be correlated with the patient's clinical findings and history. This Pap test was processed using an automated screening system. Technical cytopathology services provided by [facility], at [address] [place] [address] (CLIA # [id number]/Christine Krause MD, Saxophone Assembler.) 06/14/2024 10:11 AM [facility] Console Pap Interpretation Reported 06/14/2024 10:11 AM [facility] Brushing/Spatula Vaginal structure / Unknown 06/05/2024 06/05/2024 3:43 PM EST us Andrei Pierre MD LAB CYTOLOGY ORDERABLES Final Result [facility] [address] [place] [address], documented in this encounter Visit Diagnoses Diagnosis Encounter for gynecological examination (general) (routine) without abnormal findings documented in this encounter Care Teams Cotton Farmer Relationship Specialty Start Date End Date Samy Burns MD [address] PCP - General Internal Medicine 07/19/24 documented as of this encounter
--- OUTSIDE RECORDS SUMMARY | 2025-05-01 08:53 | XMS_ITS | Patient Health Record ---
Author Organization Brian Burns MD Address [address] [place] [phone] Care Team Providers Care Ship [employer] Mk1 Operator Name Role Phone Brian Burns Primary Care Provider Allergies No Known Allergies Results Component Value Reference Range Notes Complete Blood Count Auto Di ff Reviewed date:06/29/2024 05:37:31 PM Interpretation: Performing Lab:[facility], [address] [place] [phone] Notes/Report: White Blood Count 6.8 4.8-10.8 X10*3/uL [...] NRBC Abs Auto 0.000 0.0-0.012 X10*3/uL Comprehensive [place]. Panel Fa st Reviewed date:06/29/2024 05:27:44 PM Interpretation: Performing Lab:[facility], [address] [place] [phone] Notes/Report: Sodium 139 135-145 mmol/L Potassium 3.7 [...] Panel Reviewed date:06/29/2024 05:14:41 PM Interpretation: Performing Lab:[address] [phone] Notes/Report: Triglycerides 103 <150 mg/dL Desirable Triglyceride: [...] t Reviewed date:06/29/2024 05:14:07 PM Interpretation: Performing Lab:[address] [phone] Notes/Report: Urine, Clean Catch Color Urine Yellow Appearance Urine Clear PH 5.5 5.0-9.0 Glucose Urine UA Negative Negative mg/dL Urine Blood Negative Negative Specific [place] - Urine 1.020 1.005-1.025 Urine Protein Negative Neg-Trace mg/dL Urine Ketones Negative Negative mg/dL Nitrite Urine Positive Negative Leukocyte Esterase Urine Moderate (2+) Negative RBC Urine 0-2 0-2 /HPF WBC Urine >50 0-5 /HPF Squamous Epithelial Cell Urine 6-10 0-2 /HPF Bacteria Urine 4+ None Seen Hyaline Casts Urine 0-2 0-2 /LPF UA ClnCatch+Micro w/rflx Cul t Reviewed date:01/10/2025 04:55:56 PM Interpretation: Performing Lab:[facility], [address] [place] [phone] Notes/Report: Urine, Clean Catch Color Urine Yellow Appearance Urine Cloudy PH 6.0 5.0-9.0 Glucose Urine UA Negative Negative mg/dL Urine Blood Trace Negative Specific [place] - Urine 1.015 1.005-1.025 Urine Protein Trace Neg-Trace mg/dL Urine Ketones Negative Negative mg/dL Nitrite Urine Positive Negative Leukocyte Esterase Urine Large (3+) Negative RBC Urine 0-2 0-2 /HPF WBC Urine >50 0-5 /HPF Squamous Epithelial Cell Urine 0-2 0-2 /HPF Bacteria Urine 4+ None Seen Hyaline Casts Urine 3-5 0-2 /LPF UA ClnCatch+Micro w/rflx Cul t Reviewed date:01/28/2025 06:03:07 PM Interpretation: Performing Lab:[facility], [address] [place] [phone] Notes/Report: [id number] Urine, Clean Catch Color Urine Yellow Appearance Urine Clear PH 6.0 5.0-9.0 Glucose Urine UA Negative Negative mg/dL Urine Blood Negative Negative Specific [place] - Urine 1.015 1.005-1.025 Urine Protein Negative Neg-Trace mg/dL Urine Ketones Negative Negative mg/dL Nitrite Urine Negative Negative Leukocyte Esterase Urine Small (1+) Negative RBC Urine 0-2 0-2 /HPF WBC Urine 0-5 0-5 /HPF Squamous Epithelial Cell Urine 0-2 0-2 /HPF Calcium Oxalate Crystals Urine Present Bacteria Urine None Seen None Seen Hyaline Casts Urine 0-2 0-2 /LPF Pathology Reviewed date:05/07/2024 04:50:26 PM Interpretation: Performing Lab:[facility], [address] [place] [phone] Notes/Report: ---- Name: Kim Garcia Age/Sex: 48/F : 1975 Unit#: [id number] Attend Dr: Chapito Serrano MD Re05/04/24 Status : [facility] Location: [facility] Disch: ---- SPEC : [id number] RECD : 05/04/24-1411 STATUS: [facility] NUM: [id number] XAVIER: 05/04/24-[address] [facility] [address]: Chapito Serrano MD ENTERED: 05/04/24-14 16 [...] submitted in toto in a cassette labeled Carolin DORSEY CONTINUED ON NEXT PAGE ---- Name: Kim Garcia Age/Sex: 48/F : 1975 Unit#: [id number] Attend Dr: Chapito Serrano MD Re05/04/24 Status : [facility] Location: [facility] Disch: ---- SPEC : [id number] RECD : 05/04/24 STATUS: [facility] NUM: [id number] XAVIER: 05/04/24-[address] [facility] [address]: Chapito Serrano MD ENTERED: 05/04/24- 16 SP TYPE: Surgical OTHR DR: Brian Burns MD ORDERED: HE Stain/9, Gross Micro L4/3 Copies To: Brian Burns MD [facility] [address] [place] [address] Chapito Serrano MD [facility] [address] [place] [address] ---- Signed (signature on file) Andrei Ford MD 05/07/24 1425 ---- END OF REPORT Urine Culture Reviewed date:07/05/2024 01:06:55 PM Interpretation: Performing Lab:[facility], [address] [place] [phone] Notes/Report: O:ESCCOL Escherichia coli Urine Culture Quant Urine Culture > 100,000 cfu/mL Ampicillin 4 Cefazolin <=1 Cefepime <=0.12 Ceftriaxone <=0.25 Ciprofloxacin <=0.06 Gentamicin <=1 Nitrofurantoin <=16 Trimethoprim/Sulfamethox azole <=20 Complete Blood Count Auto Di ff Reviewed date:10/14/2024 01:55:59 PM Interpretation: Performing Lab:[facility], [address] [place] [phone] Notes/Report: White Blood Count 5.9 4.8-10.8 X10*3/uL [...] Test Reviewed date:10/14/2024 01:55:01 PM Interpretation: Performing Lab:[address] [phone] Notes/Report: Urine NEGATIVE NEGATIVE This test was developed to detect early . False negative results may occur after the 5th - 7th week of when using this test method. If clinically indicated, consider a serum hCG. Liver Panel Reviewed date:10/14/2024 01:55:11 PM Interpretation: Performing Lab:[address] [phone] Notes/Report: Bilirubin Total 1.0 0.0-1.0 mg/dL Bilirubin Direct 0.3 0.0-0.5 mg/dL Aspartate Amino Transferase 27 5-31 U/L Slight Hemolysis.Interpret result with caution. Alanine Aminotransferase 17 0-31 U/L Total Protein 7.1 6.5-8.0 g/dL Albumin Level 3.9 3.5-5.0 g/dL Alkaline Phosphatase 98 39-117 U/L Basic Metabolic Panel Reviewed date:10/14/2024 01:54:44 PM Interpretation: Performing Lab:[address] [phone] Notes/Report: Sodium 139 135-145 mmol/L Potassium 4.0 [...] Lipase Reviewed date:10/14/2024 01:54:25 PM Interpretation: Performing Lab:[address] [phone] Notes/Report: Lipase 47 8-78 U/L Urine Culture Reviewed date:10/15/2024 12:48:32 PM Interpretation: Performing Lab:[address] [phone] Notes/Report: Urine Culture No growth. UA ClnCatch+Micro w/rflx Cul t Reviewed date:10/14/2024 01:55:28 PM Interpretation: Performing Lab:[address] [phone] Notes/Report: [id number] Urine, Clean Catch Color Urine Yellow Appearance Urine Clear PH 5.5 5.0-9.0 Glucose Urine UA Negative Negative mg/dL Urine Blood Negative Negative Specific [place] - Urine 1.010 1.005-1.025 Urine Protein Negative [...] date:10/15/2024 10:00:52 AM Interpretation: Performing Lab: Notes/Report: [address] [address] [address] Scan Report Signed Patient: Kim Garcia MR#: [id number] : 1975 Acct:[id number] Age/Sex: 49 / F ADM Date: 10/14/24 Loc: HO.ED Attending Dr: Ordering Physician: Zakiya Kelly MD Date of Service: 10/14/24 Procedure(s): CT abdomen pelvis wo IV con Accession Number(s): [id number] cc: Brian Burns MD; Zakiya Kelly MD Report Number: [id number]: Total DLP = 554.00 mGy-cm CLINICAL HISTORY: [...] document has been electronically signed by: Ian Bonilla MD on 10/14/2024 14:58:42 Dictated By: Ian Bonilla MD Signed By: <Electronically signed by Ian Bonilla MD in OV> 10/14/24 1459 DD/ 1458 TD/TT: 10/14/24 1458 Sales Training Manager: [address] [address] [address] Scan Report Signed Patient: Tila Garcia MR#: [id number] : 1975 Acct:[id number] Age/Sex: 49 / F ADM Date: 10/14/24 Loc: HO.ED Attending Dr: Ordering Physician: Zakiya Kelly MD Date of Service: 10/14/24 Procedure(s): CT abd omen pelvis wo IV con Accession Number(s): [id number] cc: Brian Burns MD; Zakiya Kelly MD Report Number: [id number]: Total DLP = 554.00 mGy-cm CLINICAL HISTORY: [...] 10/14/24 1459 DD/ 1458 TD/TT: 10/14/24 1458 Sales Training Manager: Urine Culture Reviewed date:01/24/2025 09:03:34 AM Interpretation: Performing Lab:[facility], [address] [place] [phone] Notes/Report: O:STALUG Staphylococcus lugdunensis Urine Culture Quant Urine Culture > 100,000 cfu/mL Clindamycin <=0.25 Erythromycin <=0.25 Nitrofurantoin <=16 Oxacillin 1 Penicillin-G 0.12 Tetracycline <=1 Trimethoprim/Sulfamethox azole <=10 Urine Culture Reviewed date:01/29/2025 06:15:37 PM Interpretation: Performing Lab:[facility], [address] [place] [phone] Notes/Report: Urine Culture No growth. Reason For Referral No Information Medications Medication SIG (Take, Route, Frequency, Duration) Notes Start Date End Date Status Propranolol HCl 20 MG 1 tablet Orally Tw ice a day Not-Taking Ibuprofen 800 MG 1 tablet Orally Thre e times a day for 30 day(s) 07/06/2016 Not-Taking traZODone HCl 50 MG TAKE 2 TABLETS BY TN UT EVERY DAY AT BEDTIME NEEDED for 30 days Active Fioricet 50-300-40 MG 1 capsule as neede d Orally every 4 hrs Not-Taking Cephalexin 500 MG 1 capsule Orally twi ce a day for 7 days 07/02/2024 Active Pantoprazole Sodium 40 MG 1 tablet [...] Problem Status W/U Status Risk Notes Problem 8523232 Primary insomnia (F51.01) Active confirmed Problem 750002799 Endometriosis of pelvic peritoneum (N80.3) Active confirmed Problem Disorder of lumbar disc (898480457) Lumbar disc disease (M51.9) Active confirmed Problem 448552580 Non morbid obesity due to excess calories (E66.09) Active confirmed Problem 236469402 Asthmatic bronchitis, mild intermittent, uncomplicated (J45.20) Active confirmed Problem 005288013 Tension headache (G44.209) Active confirmed Problem 58909278 Dysthymia (F34.1) Active confirmed Problem 426503893 Panic attacks (F41.0) Active confirmed Problem 815560066 Migraine without aura and with status migrainosus, not intractable (G43.001) Active confirmed Problem 851718384 Bruxism (F45.8) Active confirmed Problem 278253095 History of solitary pulmonary nodule (Z87.898) Active confirmed Problem 86358330 Duodenitis (K29.80) Active confirmed Problem 70958903 Other and unspecified ovarian cyst (N83.209) Active confirmed Problem 127076682 Recurrent sinusitis (J32.9) Active confirmed Vital Signs Blood pressure diastolic 62 mm Hg 01/08/2025 Height 64 in 01/08/2025 Blood pressure systolic 94 mm Hg 01/08/2025 Weight 162 lbs 01/08/2025 BMI 27.8 kg/m2 01/08/2025 Procedures Procedure Date Ordered Date Performed Result Body Sit e Colonoscopy, Screening 05/04/2024 05/04/2024 repea t colonoscopy pending path 5/10y Encounters Encounter Location Date Provider Diagnosis Brian Burns MD [address] [place] [id number] 06/29/2024 Brian Burns Blood tests for routine general physical examination Z00.00 Brian Burns MD [address] [place] [id number] 01/10/2025 Brian Burns UTI (urinary tract infection) N39.0 Brian Burns MD [address] [place] [id number] 01/28/2025 Brian Burns After-treatment Z51.89 Brian Burns MD [address] [place] [id number] 07/17/2024 Brian Burns Unintended weight gain R63.5 ; Annual physical exam Z00.00 ; Closed fracture of one rib of left side, initial encounter S22.32XA ; Primary insomnia F51.01 and Depression screening Z13.31 Brian Burns MD [address] [place] [id number] 01/08/2025 Brian Burns Primary insomnia F51.01 and Cerumen impaction H61.20 Brian Burns MD [address] [place] [id number] 07/02/2024 Brian Burns MD [address] [place] [id number] 09/25/2024 Brian Burns Primary insomnia F51.01 Brian Burns MD [address] [place] [id number] 10/15/2024 Brian uBrns MD [address] [place] [id number] 01/10/2025 Brian Burns MD [address] [place] [id number] 04/22/2025 Brian Burns Primary insomnia F51.01 Assessments Encounter Date Diagnosis (ICD Code) Assessment Notes Treatment Notes Treatment Clinical Notes Section Notes 06/29/2024 Blood tests for routine general physical examination (ICD-10 - Z00.00) 01/10/2025 UTI (urinary tract infection) (ICD-10 - N39.0) 01/28/2025 After-treatment (ICD-10 - Z51.89) 07/17/2024 Unintended weight gain (ICD-10 - R63.5) spoke about diet and exercise 07/17/2024 Annual physical exam (ICD-10 - Z00.00) healthy, labs reviewed and discussed with patient 01/08/2025 Primary insomnia (ICD-10 - F51.01) 01/08/2025 Cerumen impaction (ICD-10 - H61.20) 09/25/2024 Primary insomnia (ICD-10 - F51.01) 04/22/2025 Primary insomnia (ICD-10 - F51.01) 07/17/2024 Closed fracture of one rib of left side, initial encounter (ICD-10 - S22.32XA) no treatment except time 07/17/2024 Primary insomnia (ICD-10 - F51.01) stable, will contonue current regiment 07/17/2024 Depression screening (ICD-10 - Z13.31) negative screen Plan Of Treatment Pending Test Test Name Order Date CT CHEST WITH CONTRAST 02/05/2014 Future Test Test Name Order Date US PELVIS 11/19/2016 Next Appt Details Provider Name:Brian Funez ier, 07/12/2025 07:00:00 AM, [address] [place] [address] Drive, [address], [place], [phone], Provider Name:Brian Funez ier, 07/19/2025 08:00:00 AM, [address], [address], [place], [place], [phone], Insurance Providers Payer Name Payer Address Payer Phone Subscriber Number Group Number Insured Name Patient Relationship to Insured Coverage Start Date Coverage End Date [employer] [facility] [address] [place], [place] [phone] [id number] Kim Garcia Self - patient is the [...]
--- OUTSIDE RECORDS SUMMARY | 2025-05-01 08:55 | XMS_ITS | Clinical Summary ---
Author Organization [address] Address [address] [place] [address] Phone Care Team Providers Care Busboy Name Role Phone Samy Burns MD Primary Care Provider [phone] Social History Tobacco Use Types Packs/Day Years Used Date Smoking Tobacco: Never Assessed Comments Unknown Sex and Gender Information Value Date Recorded Sex Assigned at Not on file Legal Sex Female 6:45 PM EST Gender Identity Not on file Sexual Orientation Not on file Plan of Treatment Health Maintenance Due Date Last Done Comments Breast Cancer Screening 1975 Colorectal Cancer Screening: Colonoscopy 1975 DTaP,Tdap,and Td Vaccines (1 - Tdap) 1992 Hepatitis B Vaccines (1 of 3 - 19+ 3-dose series) 1992 Pneumococcal Vaccine: 50+ Ye ars (1 of 1 - PCV) 2023 Zoster Vaccines (1 of 2) 2023 Depression Screening 06/20/2024 HIV Screening 07/19/2024 Hepatitis C Screening 07/19/2024 Social Influencers of Health Screening 07/19/2024 COVID-19 Vaccine (1 - 2024-2 6 season) 2025 Influenza Vaccine (#1) 2025 Cervical Cancer Screening: P ap Smear 06/05/2027 06/05/2024 RSV Immunization Adult Patie nts (1 - 1-dose 75+ series) 2048 HIB Vaccines Aged Out No longer eligi [...] intraepithelial lesion or malignancy 06/14/2024 10:11 AM [facility] Clinical Information PAP HX of LSIL AND ASCUS 06/14/2024 10:11 AM [facility] General Categorization Negative 06/14/2024 10:11 AM [facility] Specimen Adequacy Satisfactory for evaluation 06/14/2024 10:11 AM [facility] Pap Methodology Liquid Based Pap Test 06/14/2024 10:11 AM [facility] Disclaimer The Pap test is a screening test which carries an inherent false negative rate. These test results should be correlated with the patient's clinical findings and history. This Pap test was processed using an automated screening system. Technical cytopathology services provided by [facility], at [address] [place] [address], [place] [address] (CLIA # [id number]/Christine Krause MD, [employer].) 06/14/2024 10:11 AM [facility] Console Pap Interpretation Reported 06/14/2024 10:11 AM [facility] Brushing/Spatula Vaginal structure / Unknown 06/05/2024 06/05/2024 3:43 PM EST Andrei Pierre MD LAB CYTOLOGY ORDERABLES Final Result [facility] [address] [place] [address], from Last 3 Months or Most Recently Relevant to Health Maintenance Insurance [facility] Care Teams Busboy Relationship Specialty Start Date End Date Samy Burns MD [address] PCP - General Internal Medicine 07/19/24
== END 2025-05-01 09:00 | disposition home or self-care (01) ==
LOC: HO.HSM 08:35
PROVIDERS: PCP Internal Medicine; Referring Provider Internal Medicine; Visit Provider Psychiatry & Neurology Neurology
DX: G43.009 Migraine without aura, not intractable, without status migrainosus (principal); F51.04 Psychophysiologic insomnia; G44.229 Chronic tension-type headache, not intractable
CPT/HCPCS: 99213